=== PATIENT | male | born 1970 | race Two or more races ===

== ENCOUNTER 2020-11-18 05:43 | Emergency (ER) | payer BC, SELFPAY ==
[2020-11-18 06:20] VITALS: BP 137/79; PULSE 87; RESP 22; TEMP 36.6; O2SAT 98; BMI 49.2
--- NOTE | 2020-11-18 06:52 | ED.ALLEREA ---
HPI - Allergic Reaction General Chief complaint: Allergic Reaction Stated complaint: Sob/?Sinus infection Time Seen by Provider: 11/18/20 06:39 Source: patient Mode of arrival: ambulatory Limitations: no limitations History of Present Illness HPI narrative: 50 yo male with hx of allergies - on qasim, he just got his daughter a guinea pig and ever since his allergies have been getting worse, last night was the worst and he noted he was wheezing MD complaint: allergic reaction Onset (ago): hour(s) (last night) Exposure: other (guinea pig) Symptoms: difficulty breathing Severity: moderate Previous Allergic Reaction History: anaphylaxis Related Data Previous Rx's Medication Instructions Recorded albuterol sulfate 2 puff INHALATION QID PRN #6.7 g 11/18/20 prednisone 40 mg PO DAILY 5 Days #10 tab 11/18/20 Allergies Allergy/AdvReac Type Severity Reaction Status Date / Time acetaminophen [Vicodin] Allergy Unknown shortness Verified 05/31/19 00:00 of breath hydrocodone [Vicodin] Allergy Unknown shortness Verified 05/31/19 00:00 of breath hydromorphone [From Dilaudid] Allergy Unknown UNKNOWN, Unverified 06/28/20 14:50 Tongue swelling From VICODIN Allergy Unknown ANAPHYLAXIS Uncoded 06/28/20 14:50 Hydrocodone-Acetaminophen Allergy Unknown itchiness Uncoded 11/26/16 00:00 SEASONAL ALLERGIES Allergy Unknown Wheezing Uncoded 11/18/20 06:20 Review of Systems Review of Systems: Constitutional : No Fever, No Chills ENT/Mouth : no oral swelling, No Hoarseness, No Swallowing Difficulty Eyes: No Eye Pain, No Swelling, No Redness Cardiovascular : No Chest Pain, pos SOB Respiratory : No Cough, No Sputum, pos Wheezing, No Smoke Exposure, No Dyspnea Gastrointestinal : No Nausea, No Vomiting, No Diarrhea, No abdominal Pain Genitourinary : No Dysuria, No Urinary Frequency, No Hematuria Musculoskeletal : No joint pain, No Myalgias, No Joint Swelling Skin : No Skin Lesions, no rash Neuro : No Weakness, No Numbness, No Headache Psych : No Anxiety/Panic, No Depression Heme/Lymph: No Bruising, No Lymphadenopathy Endocrine : No Polyuria, No Polydipsia All other systems reviewed and are negative PMFSH Past Medical History Attestation statement: The following information was validated with the patient. Medical History Obesity Social History Social History (Updated 11/18/20 @ 06:59 by Roya Nye DO) Alcohol intake: current Alcohol intake frequency: holidays/special occasions only Alcohol type: beer Smoking Status: Never smoker Use of substances other than those prescribed or required for medical reasons: No Advance Directives: No Advance Directives Information Provided: No Physical Exam Vital Signs: Vital Signs: Last Vital Signs Temp 98.1 F 11/18/20 08:28 Pulse 94 11/18/20 08:28 Resp 18 11/18/20 08:28 BP 109/65 11/18/20 08:28 Pulse Ox 97 11/18/20 08:28 Body Mass Index 49.2 Appearance: Alert. Oriented X3. No acute distress. Eyes: Pupils equal, round and reactive to light. ENT: Pharynx normal. Neck: Normal inspection. Neck supple. CVS: Normal heart rate and rhythm. Pulses normal. Respiratory: No respiratory distress. Breath sounds diffuse end exp wheezes Abdomen: Soft and nontender. Skin: Skin warm and dry. Normal skin color. Normal skin turgor. Extremities: No lower extremity edema. No calf ttp Neuro: Oriented X 3. No motor deficit. No sensory deficit. Course Course Course Narrative: repeat neb ordered, states still with some wheezing at this time patient improved, INH in hand, lungs clear no hypoxia MDM - Allergic Reaction MDM Narrative Medical decision making narrative: 50 yo male with hx of allergies, here with wheezing after guinea pig exposure over time, will need albuterol treatment (does not use an INH) IV steroids, IV benadryl, IV pepcid - dispo per results and improvement Discharge Plan Discharge Clinical Impression: Acute bronchospasm Allergic reaction Qualifiers: Encounter type: initial encounter Qualified Code(s): T78.40XA - Allergy, unspecified, initial encounter Patient Disposition: Home, Self-Care Instructions: Allergies (ED), Bronchospasm (ED) Additional Instructions: return to ED for any worsening symptoms or concerns unfortunately the guinea pig is likely causing severe allergies and unlikely to respond to qasim or anti histamines Prescriptions: New prednisone 20 mg tablet 40 mg PO DAILY 5 Days Qty: 10 RF: 0 albuterol sulfate 90 mcg/actuation HFA aerosol inhaler 2 puff inhalation QID PRN (Reason: shortness of breath or wheezing) Qty: 6.7 RF: 0 Referrals: Javier Benoit MD [Primary Care Provider] - 2 days (if not better) Stand Alone Forms: Work/School Release
[2020-11-18] MEDS: Albuterol Sulfate (0.083%) 2.5 MG/3 ML VIAL.NEB INHALE (07:11)
[2020-11-18] MEDS: methylPREDNISolone Sod Succ/PF 125 MG/2 ML VIAL IVPUSH (07:25)
[2020-11-18] MEDS: diphenhydrAMINE HCL 50 MG/ML VIAL 25 MG IVPUSH (07:25)
[2020-11-18] MEDS: Famotidine/PF 20 MG/2 ML VIAL IVPUSH (07:26)
[2020-11-18 07:32] VITALS: BP 116/66; PULSE 94; RESP 18; TEMP 37; O2SAT 97
[2020-11-18 08:28] VITALS: BP 109/65; PULSE 94; RESP 18; TEMP 36.7; O2SAT 97
[2020-11-18] MEDS: Albuterol Sulfate (0.083%) 2.5 MG/3 ML VIAL.NEB 5 MG INHALE (08:39)
[2020-11-18 09:53] VITALS: BP 124/74; PULSE 103; RESP 18; TEMP 36.7; O2SAT 95
== END 2020-11-18 10:13 | disposition home or self-care (01) ==
PROVIDERS: Emergency Provider Emergency Medicine; PCP Internal Medicine
DX: J98.01 Acute bronchospasm (principal); T78.40XA Allergy, unspecified, initial encounter; X58.XXXA Exposure to other specified factors, initial encounter
CPT/HCPCS: 96374; 96375; 99284; J1200; J2930

== ENCOUNTER 2020-12-16 03:07 | Observation (INO) | payer BC, SELFPAY ==
[2020-12-16] VITALS (11 sets, daily range): BP systolic 100–140; BP diastolic 57–77; PULSE 90–132; RESP 7–20; TEMP 36.5–36.9; O2SAT 95–100; BMI 67.1
--- NOTE | ~2020-12-16 | XR_ITS ---
EXAMINATION: XR CHEST CLINICAL INFORMATION: Cough COMPARISON: 08/15/2014 TECHNIQUE: Frontal view of the chest was obtained. FINDINGS: Lung volumes are symmetric. No focal consolidation is seen. No evidence of pneumothorax, pleural effusion, or pulmonary edema. The cardiomediastinal contour is unremarkable. No acute osseous findings are seen. XR/XR chest 1V IMPRESSION: No acute cardiopulmonary findings.
--- NOTE | 2020-12-16 03:24 | ED_ITS ---
HPI - Asthma General Chief Complaint: Dyspnea Stated Complaint: Sob Time Seen by Provider: 12/16/20 03:17 Source: patient and old records reviewed Mode of arrival: ambulatory Limitations: no limitations History of Present Illness HPI Narrative: 50 yo male with recent bouts of bronchitis and wheezing comes in with c/o cough and then dyspnea and wheezing that started last night has INH that didn't work complaint: asthma attack and wheezing Onset (ago): day(s) (1) Severity: moderate and similar to prior Context: recent URI Associated symptoms: dry cough Asthma History: adult onset Treatments Prior to Arrival: inhaled bronchodilator Related Data Home Medications Medication Instructions Recorded Confirmed fexofenadine 60 mg tablet 30 mg PO DAILY tab 12/04/20 12/04/20 Previous Rx's Medication Instructions Recorded prednisone 40 mg PO DAILY 5 Days #10 tab 11/18/20 albuterol sulfate 90 mcg/actuation 2 puff INHALATION QID PRN #6.7 g 12/04/20 aerosol inhaler ciprofloxacin HCl 500 mg tablet 500 mg PO BID 10 Days #20 tab 12/04/20 dextromethorphan-guaifenesin ER 60 1 tab PO Q12H 10 Days #20 tab 12/04/20 mg-1,200 mg tab,extend release,12hr Allergies Allergy/AdvReac Type Severity Reaction Status Date / Time acetaminophen [Vicodin] Allergy Unknown shortness Verified 12/16/20 03:59 of breath hydrocodone [Vicodin] Allergy Unknown shortness Verified 12/16/20 03:59 of breath hydromorphone [From Dilaudid] Allergy Unknown UNKNOWN, Verified 12/16/20 03:59 Tongue swelling From VICODIN Allergy Unknown ANAPHYLAXIS Uncoded 12/16/20 03:59 Hydrocodone-Acetaminophen Allergy Unknown itchiness Uncoded 12/16/20 03:59 SEASONAL ALLERGIES Allergy Unknown Wheezing Uncoded 12/16/20 03:59 Review of Systems Review of Systems: Constitutional : No Fever, No Chills ENT/Mouth : No sore throat, No Rhinorrhea, No Swallowing Difficulty Eyes: No Eye Pain, No Swelling, No Redness Cardiovascular : No Chest Pain, positive SOB, No Orthopnea, mp Edema Respiratory : pos Cough, No Sputum, No Wheezing, positive dyspnea Gastrointestinal : No Nausea, No Vomiting, No Diarrhea, No abdominal Pain, No Hematochezia, No Melena Genitourinary : No Dysuria, No Urinary Frequency, No Hematuria Musculoskeletal : No joint pain, No Myalgias Skin : No Skin Lesions, No rash Neuro : No Weakness, No Numbness, No Dizziness, No Headache Psych : No Anxiety/Panic, No Depression Heme/Lymph: No Bruising, No Lymphadenopathy Endocrine : No Polyuria, No Polydipsia All other systems reviewed and are negative [facility] Past Medical History Attestation statement: The following information was validated with the patient. Medical History Bronchitis Obesity Family History Family History (Updated 12/04/20 @ 16:24 by Patty Elliott) Mother No problems noted. Father Heart attack Social History Social History Alcohol intake: never Smoking Status: Never smoker Use of substances other than those prescribed or required for medical reasons: No Advance Directives: No Physical Exam Vital Signs: Vital Signs: Last Vital Signs Temp 98.5 F 12/16/20 03:21 Pulse 126 H 12/16/20 06:42 Resp 7 L 12/16/20 06:00 BP 119/57 L 12/16/20 06:00 Pulse Ox 98 12/16/20 06:00 Body Mass Index 67.1 Appearance: Alert. Oriented X3. Mild acute distress. Eyes: Pupils equal, round and reactive to light. ENT: Pharynx normal. Neck: Normal inspection. Neck supple. CVS: Normal heart rate and rhythm. Pulses normal. Respiratory: Mild respiratory distress retractions and tachypnea Breath sounds diffuse end exp wheezes Abdomen: Soft and nontender. Skin: Skin warm and dry. Normal skin color. Normal skin turgor. Extremities: No lower extremity edema. No calf ttp Neuro: Oriented X 3. No motor deficit. No sensory deficit. Course Course Course Narrative: still wheezing, repeat neb ordered patient still tight and wheezing, will admit for further workup MDM - Asthma MDM Narrative Medical decision making narrative: 50 yo male with hx of bronchitis here with a day of worsening dyspnea and wheezes no response to INH at this time will need labs, IV steroids, IV magnesium, CXR/COVID swab, hour long 10mg neb, dispo per results and findings. Lab Data Result diagrams: 12/16/20 03:46 03/07/21 03:46 Labs: Lab Results 12/16/20 12/16/20 12/16/20 Range/Units 03:46 03:46 03:46 WBC 9.8 (4.8-10.8) X10*3/uL RBC 4.67 (4.60-5.80) X10*6/uL Hgb 13.1 L (14.0-18.0) g/dl Hct 41.8 L (42-52) % MCV 89.5 (80-98) fL MCH 28.1 (27.0-33.0) pg MCHC 31.3 (31.0-36.0) g/dl RDW 13.1 (11.0-16.0) % Plt Count 297 (160-400) X10*3/uL MPV 9.6 (9.4-12.4) fL Immature Gran % (Auto) 0.7 H (0.0-0.4) % Neut % (Auto) 66.4 (45-73) % Lymph % (Auto) 14.5 L (20-40) % [place] % (Auto) 6.6 (2-11) % Eos % (Auto) 11.4 H (0-4) % Baso % (Auto) 0.4 (0-2) % Lymph # (Auto) 1.4 (1.2-4.9) X10*3/uL [place] # (Auto) 0.6 (0.1-1.2) X10*3/uL Eos # (Auto) 1.1 H (0.0-0.4) X10*3/uL Baso # (Auto) 0.0 (0.0-0.2) X10*3/uL Abs Immat Gran (auto) 0.07 H (0.00-0.03) X10*3/uL Absolute Neuts (auto) 6.5 (2.0-8.3) X10*3/uL Absolute Nucleated RBC 0.000 (0.0-0.012) X10*3/uL Nucleated RBC % (auto) 0.0 (0.0-0.2) /100WBC Hold Blue Top SEE NOTE Sodium 141 (135-145) mmol/L Potassium 4.2 (3.3-5.1) mmol/L Chloride 107 (96-108) mmol/L Carbon Dioxide 25 (22-29) mmol/L Anion Gap 10 L (12-20) BUN 18 H (9-16) mg/dL Creatinine 0.75 (0.5-1.4) mg/dL Estim Creat Clear Calc 165.6 Estimated GFR > 60 Random Glucose 120 H (60-115) mg/dL Calcium 8.5 (8.4-10.2) mg/dL B-Natriuretic Peptide (<100) pg/mL COVID-19 (BRITTNY) (Negative) COVID-19 Clin Com 12/16/20 12/16/20 Range/Units 03:46 03:46 WBC (4.8-10.8) X10*3/uL RBC (4.60-5.80) X10*6/uL Hgb (14.0-18.0) g/dl Hct (42-52) % MCV (80-98) fL MCH (27.0-33.0) pg MCHC (31.0-36.0) g/dl RDW (11.0-16.0) % Plt Count (160-400) X10*3/uL MPV (9.4-12.4) fL Immature Gran % (Auto) (0.0-0.4) % Neut % (Auto) (45-73) % Lymph % (Auto) (20-40) % [place] % (Auto) (2-11) % Eos % (Auto) (0-4) % Baso % (Auto) (0-2) % Lymph # (Auto) (1.2-4.9) X10*3/uL [place] # (Auto) (0.1-1.2) X10*3/uL Eos # (Auto) (0.0-0.4) X10*3/uL Baso # (Auto) (0.0-0.2) X10*3/uL Abs Immat Gran (auto) (0.00-0.03) X10*3/uL Absolute Neuts (auto) (2.0-8.3) X10*3/uL Absolute Nucleated RBC (0.0-0.012) X10*3/uL Nucleated RBC % (auto) (0.0-0.2) /100WBC Hold Blue Top Sodium (135-145) mmol/L Potassium (3.3-5.1) mmol/L Chloride (96-108) mmol/L Carbon Dioxide (22-29) mmol/L Anion Gap (12-20) BUN (9-16) mg/dL Creatinine (0.5-1.4) mg/dL Estim Creat Clear Calc Estimated GFR Random Glucose (60-115) mg/dL Calcium (8.4-10.2) mg/dL B-Natriuretic Peptide 13 (<100) pg/mL COVID-19 (BRITTNY) Negative (Negative) COVID-19 Clin Com See Note Critical Care Time Critical Care Time Critical Care Time: Yes Total Critical Care Time: 35 Attestation: reassessments, repeat nebs, hour long 10mg neb I attest to this time spent taking care of the patient Discharge Plan Discharge Clinical Impression: Bronchitis, Asthma with exacerbation Patient Disposition: Admitted As Inpatient Prescriptions: No Action prednisone 20 mg tablet 40 mg PO DAILY 5 Days Qty: 10 RF: 0 fexofenadine 60 mg tablet 30 mg PO DAILY RF: 0 ciprofloxacin HCl 500 mg tablet 500 mg PO BID 10 Days Qty: 20 RF: 0 dextromethorphan-guaifenesin [Mucinex DM] 60-1,200 mg tablet extended release 12 hr 1 tab PO Q12H 10 Days Qty: 20 RF: 0 albuterol sulfate 90 mcg/actuation HFA aerosol inhaler 2 puff inhalation QID PRN (Reason: shortness of breath or wheezing) Qty: 6.7 RF: 0
[2020-12-16 03:57] LABS: MANUAL DIFF FLAG NO
[2020-12-16 03:58] LABS: Basophils Percent Auto 0.4 % (0-2); Eosinophils Absolute Auto 1.1 X10*3/uL (0.0-0.4); Eosinophils Percent Auto 11.4 % (0-4); Hematocrit 41.8 % (42-52); Hemoglobin 13.1 g/dl (14.0-18.0); Imm Gran Abs Auto 0.07 X10*3/uL (0.00-0.03); Imm Gran Pct Auto 0.7 % (0.0-0.4); Lymphocytes Absolute Auto 1.4 X10*3/uL (1.2-4.9); Lymphocytes Percent Auto 14.5 % (20-40); Mean Corpuscular HGB Conc 31.3 g/dl (31.0-36.0); Mean Corpuscular Hemoglobin 28.1 pg (27.0-33.0); Mean Corpuscular Volume 89.5 fL (80-98); Mean Platelet Volume 9.6 fL (9.4-12.4); Monocytes Absolute Auto 0.6 X10*3/uL (0.1-1.2); Monocytes Percent Auto 6.6 % (2-11); Neutrophils Absolute Auto 6.5 X10*3/uL (2.0-8.3); Neutrophils Percent Auto 66.4 % (45-73); Platelet Count 297 X10*3/uL (160-400); Red Blood Count 4.67 X10*6/uL (4.60-5.80); Red Cell Distribution Width 13.1 % (11.0-16.0); White Blood Count 9.8 X10*3/uL (4.8-10.8)
[2020-12-16] MEDS: Magnesium Sulfate/H2O 2 GM/50 ML PIGGYBACK IV (03:59)
[2020-12-16] MEDS: methylPREDNISolone Sod Succ/PF 125 MG/2 ML VIAL IVPUSH (04:00)
[2020-12-16 04:10] LABS: COVID-19 Test Negative (Negative); IDNOW Serial# 9DD0AD1C
[2020-12-16 04:24] LABS: Blood Urea Nitrogen 18 mg/dL (9-16); Calcium 8.5 mg/dL (8.4-10.2); Carbon Dioxide 25 mmol/L (22-29); Creatinine Clr Calc Pharmacy 165.6; Estimated Glomerular Filt Rate > 60; Glucose Random 120 mg/dL (60-115)
[2020-12-16 04:26] LABS: B Type Natriuretic Peptide 13 pg/mL (<100)
[2020-12-16 04:44] LABS: Anion Gap 10 (12-20); Chloride 107 mmol/L (96-108); Potassium 4.2 mmol/L (3.3-5.1); Sodium 141 mmol/L (135-145)
[2020-12-16] MEDS: Albuterol Sulfate (0.083%) 2.5 MG/3 ML VIAL.NEB 10 MG INHALE (05:07)
[2020-12-16] MEDS: Albuterol Sulfate (0.083%) 2.5 MG/3 ML VIAL.NEB INHALE (06:41)
--- NOTE | 2020-12-16 07:42 | PC.NURSE ---
pt alert and oriented x3. expiratory wheezing present in both lungs bilaterally. pt denies feeling short of breath at this time and denies pain with respirations. heart sounds normal, heart rate is even but tachycardic (126/min). bowel sounds active x4. pt eye contact and verbal responses appropriate for setting. pt currently sitting comfortably in bed in semi fowlers talking on the phone. pt has no questions or concerns at this time.
--- NOTE | 2020-12-16 09:50 | PM.IMHP ---
History of Present Illness Date of Service: 12/16/20 Chief Complaint: sob 50M presnted with sob. Patient states the symptoms go back about 1 month, after his children got guinea pigs. he believes he is sensitive to the hay. Throughout the last month he had tried a course of steroids and inhalers. He does not have a previous diagnosis of asthma. He had no improvement, due to increased coffee is now feeling soreness chest. And shortness of breath has worsened therefore he has come to the ED. in the ED found to be very wheezy and tachycardic. He was given nebulizers and Solu-Medrol and magnesium and is still feeling short of breath. Patient denies any fevers, chills. Review of Systems Review of Systems: Constitutional: Denies fever, denies Chills Eyes: denies blurry vision ENT: denies sore throat CVS: denies chest pain Respiratory: dyspnea GI: no abdominal pain : denies dysuria MSK: denies neck pain Skin: denies rash Neuro: denies specific motor weakness Psych: denies suicidal ideation Endocrine: denies heat/cold intoleratnce Hematologic: denies easy bleeding Allergy: denies hives [facility] Medical History Bronchitis Nephrolithiasis Obesity Super obesity Family History Mother No problems noted. Father Heart attack Social History Alcohol intake: never Smoking Status: Never smoker Use of substances other than those prescribed or required for medical reasons: No Advance Directives: No Meds Allergies Allergy/AdvReac Type Severity Reaction Status Date / Time acetaminophen [Vicodin] Allergy Unknown shortness Verified 12/16/20 03:59 of breath hydrocodone [Vicodin] Allergy Unknown shortness Verified 12/16/20 03:59 of breath hydromorphone [From Dilaudid] Allergy Unknown UNKNOWN, Verified 12/16/20 03:59 Tongue swelling From VICODIN Allergy Unknown ANAPHYLAXIS Uncoded 12/16/20 03:59 Hydrocodone-Acetaminophen Allergy Unknown itchiness Uncoded 12/16/20 03:59 SEASONAL ALLERGIES Allergy Unknown Wheezing Uncoded 12/16/20 03:59 Physical Exam Vital Signs and Narrative: Vital Signs: Last Vital Signs Temp 97.7 F 12/16/20 07:35 Pulse 126 H 12/16/20 07:35 Resp 16 12/16/20 07:35 BP 113/69 12/16/20 07:35 Pulse Ox 95 12/16/20 07:35 Body Mass Index 67.1 General: no acute distress HEENT: atraumatic Neck: normal to visual inspection CVS: S1, S2, RRR Resp: bilateral wheezes Chest: non tender GI: soft, non tender, non distended : no CVA tenderness Skin: no rashes Extremities: no edema Neuro: Oriented X3, grossly intact Psych: cooperative, Results Labs CBC and Chem 7: 12/16/20 03:46 12/16/20 03:46 Labs: Laboratory Results - last 24 hr 12/16/20 12/16/20 12/16/20 03:46 03:46 03:46 MCV 89.5 MCH 28.1 MCHC 31.3 RDW 13.1 Plt Count 297 MPV 9.6 Immature Gran % (Auto) 0.7 H Neut % (Auto) 66.4 Lymph % (Auto) 14.5 L [place] % (Auto) 6.6 Eos % (Auto) 11.4 H Baso % (Auto) 0.4 Lymph # (Auto) 1.4 [place] # (Auto) 0.6 Eos # (Auto) 1.1 H Baso # (Auto) 0.0 Abs Immat Gran (auto) 0.07 H Absolute Neuts (auto) 6.5 Absolute Nucleated RBC 0.000 Nucleated RBC % (auto) 0.0 Hold Blue Top SEE NOTE Anion Gap 10 L Estim Creat Clear Calc 165.6 Estimated GFR > 60 Random Glucose 120 H Calcium 8.5 B-Natriuretic Peptide COVID-19 (BRITTNY) COVID-19 Clin Com 12/16/20 12/16/20 03:46 03:46 MCV MCH MCHC RDW Plt Count MPV Immature Gran % (Auto) Neut % (Auto) Lymph % (Auto) [place] % (Auto) Eos % (Auto) Baso % (Auto) Lymph # (Auto) [place] # (Auto) Eos # (Auto) Baso # (Auto) Abs Immat Gran (auto) Absolute Neuts (auto) Absolute Nucleated RBC Nucleated RBC % (auto) Hold Blue Top Anion Gap Estim Creat Clear Calc Estimated GFR Random Glucose Calcium B-Natriuretic Peptide 13 COVID-19 (BRITTNY) Negative COVID-19 Clin Com See Note Imaging Radiologist's Impressions: Impressions Chest X-Ray 12/16/20 03:24 IMPRESSION: No acute cardiopulmonary findings. Assessment and Plan (1) Asthma with exacerbation: Qualifiers: Asthma persistence: persistent Asthma severity: mild Qualified Code(s): J45.31 - Mild persistent asthma with (acute) exacerbation Status: Acute (2) Super obesity: Status: Acute 50-year-old male presented with shortness of breath Acute asthma exacerbation likely triggered by allergens related to pets at home. IV Solu-Medrol, bronchodilators Observation Super obesity Increases risk of adverse outcomes due to asthma Weight loss recommended
--- NOTE | 2020-12-16 11:00 | PC.NURSE ---
ambulates to the bathroom with mild to moderate grimes. Wheezes throughout
[2020-12-16] MEDS: Albuterol/Iprat 2.5/0.5MG 3 ML AMPUL.NEB INHALE ×2 (13:45→23:37)
[2020-12-16] MEDS: Enoxaparin Sodium 40 MG/0.4 ML SYRINGE SUBCUT (15:04)
[2020-12-16] MEDS: 0.9 % Sodium Chloride Flush 3 ML SYRINGE IVFLUSH ×2 (15:09→23:32)
[2020-12-16] MEDS: methylPREDNISolone Sod Succ/PF 125 MG/2 ML VIAL 60 MG IVPUSH (21:14)
--- NOTE | 2020-12-16 22:51 | PC.NURSE ---
PT ABLE TO AMBULATE WITH STEADY GAIT AND MAKE NEEDS KNOWN. ATE 100% DINNER EARLIER THIS SHIFT. WATCHING TV, AWAITING CALL BACK FROM UNIT TO GIVE RN TO RN REPORT. PLAN FOR ADMISSION.
[2020-12-17 04:00] VITALS: BP 126/71; PULSE 105; RESP 20; TEMP 36.3; O2SAT 95
[2020-12-17] MEDS: 0.9 % Sodium Chloride Flush 3 ML SYRINGE IVFLUSH (07:28)
[2020-12-17 07:47] VITALS: BP 140/93; PULSE 96; RESP 21; TEMP 36.2; O2SAT 96
[2020-12-17] MEDS: methylPREDNISolone Sod Succ/PF 125 MG/2 ML VIAL 60 MG IVPUSH (08:22)
--- NOTE | 2020-12-17 09:07 | PM.DS ---
DS: Providers Provider Date of Service: 12/17/20 Date of admission: 12/16/20 09:46 Primary care physician: Javier Benoit MD DS: Diagnosis Discharge Diagnosis (1) Asthma with exacerbation: Status: Acute (2) Super obesity: Status: Acute DS: Medications Discharge Medications Home Medications: Previous Rx's Medication Instructions Recorded albuterol sulfate 90 mcg/actuation 2 puff INHALATION QID PRN #6.7 g 12/04/20 aerosol inhaler prednisone 40 mg PO DAILY #15 tab 12/17/20 DS: Summary Hospital Course Hospital Course: patient was admitted for asthma exacerbation. he was given steroids and bronchodilators and symtpoms significantly improved. he will be discharged on prednisone taper and already has albuterol inhaler. he will consider allergy work up, and avoid suspected trigger (guinea pigs) Time Spent with Patient Time attestation: Total time spent providing and/or coordinating discharge services: Discharge coordination time: Greater than 30 minutes Physical Exam Vital Signs: Vital Signs: Last Vital Signs Temp 97.1 F 12/17/20 07:47 Pulse 96 12/17/20 07:47 Resp 21 H 12/17/20 07:47 BP 140/93 H 12/17/20 07:47 Pulse Ox 96 12/17/20 07:47 Body Mass Index 67.1 General: AO X 3, no acute distress Resp: minimal wheez CVS: S1,S2,RRR GI: soft, non tender, non distended Neuro: motor grossly intact Psych: appropriate affect Discharge Plan Discharge Patient Disposition: Home, Self-Care Referrals: Javier Benoit MD [Primary Care Provider] - Discharge Medications: New prednisone 20 mg tablet 40 mg PO DAILY Qty: 15 RF: 0 Continued albuterol sulfate 90 mcg/actuation HFA aerosol inhaler 2 puff inhalation QID PRN (Reason: shortness of breath or wheezing) Qty: 6.7 RF: 0 Discharge Orders: Discharge Order (Routine); Ordered 12/17/20 Ordered By: Morgan Crenshaw Diet: advance to usual diet Activity on Discharge: As tolerated Stand Alone Forms: Patient Portal Discharge page, Work/School Release Care Plan Goals: avoid asthma exacerbations Health Concerns: asthma Plan of Treatment: steroid taper, avoid triggers, consider allergy work up
--- NOTE | 2020-12-17 09:52 | MHC.CM.PN ---
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 patient reports he lives with his and children ,he started having some breathing problems about A MONTH AGO WHEN HIS CHILDREN GOT A GERBAL (HE THINKS HE MIGHT BE ALERGIC T THE HAY , HE PRESENTED WITH SHORTNESS OF BREATH AND IN THE ER RECIVED NEBULIZER, BROCHODILATORS AND STEROIDS, HE REPORTED THAT HE IA ACTIVE, EMPLOYED [employer] AND HAS NO VNA ,NO DME SERVICES IN THE HOME. 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
== END 2020-12-17 10:16 | disposition home or self-care (01) ==
LOC: HO.ED 07:21 → HO.EDOVER 10:30 → HO.S3 21:21
PROVIDERS: Emergency Medicine; Admitting Provider Internal Medicine; Emergency Provider Emergency Medicine; PCP Internal Medicine; Visit Provider Internal Medicine
DX: J45.31 Mild persistent asthma with (acute) exacerbation (principal); E66.9 Obesity, unspecified; R06.00 Dyspnea, unspecified; R05 Cough; Z20.822 Contact with and (suspected) exposure to COVID-19; Z88.6 Allergy status to analgesic agent; Z88.8 Allergy status to other drugs, medicaments and biological substances; Z79.52 Long term (current) use of systemic steroids; Z79.899 Other long term (current) drug therapy
CPT/HCPCS: 36415; 71045; 80048; 83880; 85025; 87635; 94640; 94644; 96365; 96374; 96375; 99218; 99285; 99291; J1650; J2930; J3475

== ENCOUNTER 2021-01-31 14:31 | Emergency (ER) | payer BC, SELFPAY ==
--- NOTE | ~2021-01-31 | XR_ITS ---
EXAMINATION: XR RIBS, LEFT WITH CHEST CLINICAL INFORMATION: Shortness of breath status post coughing episode. COMPARISON: Chest radiographs 12/16/2020, 08/15/2014 TECHNIQUE: Frontal view chest and 4 views left ribs are obtained for a total of 5 views. FINDINGS: There is no visible rib fracture or rib destructive process. The lungs are clear. There is no pneumothorax, pneumomediastinum, airspace consolidation, or pleural reaction. The costophrenic sulci are clear. The heart is normal in size. The vascularity is normal. The hilar and mediastinal contours and bony structures are unremarkable. No free air beneath the diaphragms. XR/XR ribs LT min 3V w CXR1V IMPRESSION: Unremarkable examination.
[2021-01-31 14:42] VITALS: BP 121/85; PULSE 100; RESP 24; TEMP 36.5; O2SAT 95; BMI 76.1
--- NOTE | 2021-01-31 14:42 | ED.SOB ---
HPI - SOB/Dyspnea General Chief Complaint: Dyspnea Stated Complaint: SOB Time Seen by Provider: 01/31/21 14:42 Source: patient and EMS Limitations: no limitations History of Present Illness HPI Narrative: 50yo male with past medical history of asthma here with complaints of left upper back pain. Patient tells me he has had a dry cough and wheezing x 3 days. Using inhaler with continued symptoms. Took leftover prednisone and called PCP for refill but pending call back. No fevers, chills. Today after coughing fit developed left upper back pain which is worsened with breathing, moving and palpation. Related Data Previous Rx's Medication Instructions Recorded prednisone 40 mg PO DAILY #15 tab 12/17/20 cyclobenzaprine 10 mg tablet 10 mg PO TID PRN #15 tab 01/08/21 lidocaine 5 % topical patch 1 patch TOPICAL DAILY #15 ea 01/08/21 naproxen 500 mg tablet 500 mg PO BID PRN #60 tab 01/08/21 albuterol sulfate 90 mcg/actuation 2 puff INHALATION QID PRN #6.7 g 01/19/21 aerosol inhaler cyclobenzaprine 10 mg PO TID PRN #10 tab 01/31/21 lidocaine [Lidoderm] 1 patch TOPICAL DAILY #15 ea 01/31/21 naproxen 500 mg PO BID PRN #20 tab 01/31/21 prednisone 40 mg PO DAILY #10 tab 01/31/21 Allergies Allergy/AdvReac Type Severity Reaction Status Date / Time acetaminophen [Vicodin] Allergy Unknown shortness Verified 12/16/20 03:59 of breath hydrocodone [Vicodin] Allergy Unknown shortness Verified 12/16/20 03:59 of breath hydromorphone [From Dilaudid] Allergy Unknown UNKNOWN, Verified 12/16/20 03:59 Tongue swelling From VICODIN Allergy Unknown ANAPHYLAXIS Uncoded 12/16/20 03:59 Hydrocodone-Acetaminophen Allergy Unknown itchiness Uncoded 12/16/20 03:59 SEASONAL ALLERGIES Allergy Unknown Wheezing Uncoded 12/16/20 03:59 Review of Systems Review of Systems: Yes all other systems are reviewed and are negative Constitutional: Constitutional: Reports no additional constitutional complaints, Denies body ache(s), Denies chills, Denies fever(s), Denies headache(s) and Denies weakness Eyes: Eyes: Reports no additional eye complaints and Denies change in vision ENT: Reports system reviewed and no additional complaints, except as documented, Denies dizziness, Denies headache(s), Denies nasal congestion, Denies nasal discharge and Denies neck pain Cardiovascular: Cardiovascular: Reports no additional cardiovascular complaints, Denies chest pain, Denies leg edema and Denies dyspnea Respiratory: Respiratory: Reports no additional respiratory complaints, Reports cough and Denies dyspnea Gastrointestinal: Gastrointestinal: Reports no additional gastrointestinal complaints, Denies abdominal pain, Denies diarrhea, Denies nausea and Denies vomiting Genitourinary: Genitourinary: Denies urinary incontinence Musculoskeletal: Musculoskeletal: Reports no additional musculoskeletal complaints, Reports back pain, Denies arthralgias, Denies joint swelling, Denies neck pain, Denies numbness and Denies tingling Integumentary/Breasts: Skin/Breast: Reports system reviewed and no additional complaints, except as docu and Denies rash Neurologic: Reports system reviewed and no additional complaints, except as documented, Denies Abnormal speech present, Denies dizziness, Denies headache(s), Denies numbness, Denies tingling and Denies weakness PMFSH Past Medical History Attestation statement: The following information was validated with the patient. Source: old records reviewed and nursing notes reviewed Medical History Bronchitis Nephrolithiasis Obesity Super obesity Family History Family History Mother No problems noted. Father Heart attack Social History Social History Alcohol intake: never Smoking Status: Never smoker Advance Directives: No Advance Directives Information Provided: No service: No Current occupational status: employed and disabled Physical Exam Vital Signs: Vital Signs: Last Vital Signs Temp 97.6 F 01/31/21 16:33 Pulse 94 01/31/21 16:33 Resp 20 01/31/21 16:33 BP 130/70 01/31/21 16:33 Pulse Ox 96 01/31/21 16:33 Body Mass Index 76.1 Const: General: cooperative, healthy appearing, comfortable and no acute distress Orientation/consciousness: patient oriented x3 Limitations: no limitations HENMT: Head: Yes normal to inspection Ears: hearing grossly normal bilaterally General nose exam: Normal external nose present Face and sinus: Yes normal facial exam Mouth: Normal oral and palatal mucosa present Throat: Yes posterior oropharynx normal Eyes: General: appearance normal, both eyes and all related structures Pupils: Equal, round and reactive pupils present Neck: Neck: Yes normal visual inspection Chest: Chest palpation & inspection: normal inspection of the chest Resp: Effort & Inspection: normal respiratory effort Auscultation: clear to auscultation bilaterally Cardio: Rate: regular rate Rhythm: regular rhythm Peripheral pulses: Peripheral pulses 2+ throughout GI: Inspection: Yes normal to inspection Palpation (GI): Soft to palpation and nontender Auscultation: normal bowel sounds Back/Spine/Pelvis: Other: Left posterior rib pain, worsened with palpation. No ecchymosis or crepitus Thoracic/Lumbar Spine: thoracic and lumbar spine normal to inspection Skin: General skin exam: no rashes or lesions noted Neuro: General: patient oriented x3, no focal motor deficits and normal sensation to monofilament Cranial nerves: Yes Equal, round and reactive pupils present Cognition (Neuro): normal cognition Speech: No Abnormal speech present Gait exam (Neuro): Normal gait present Motor exam (neuro): 5/5 motor strength present throughout Extrem: General: Yes normal to inspection, Yes no pedal edema and Yes no calf tenderness Course Course Course Narrative: 1440-This is a rapid medical exam. 50yo male here with SOB, left sided chest wall pain s/p coughing episode which occurred just [employer]. Has had cough x several days. No fevers/chills. Received 1 of 2 moderna vaccines. LS CTA. Oxygen saturation >95%. Will need chest/ left rib xray. Deferred HPI, ROS and PE to primary provider. 1640-Reviewed X-ray which is unremarkable. Likely chest wall strain. Also c/o asthma sympoms x several days. Requesting prednisone course. Has adequate refills on albuterol. Reviewed worrisome signs/symptoms with patient and when to return to ED. Comfortable with discharge home. MDM - SOB/Dyspnea Medical Records Attestation: I reviewed the patient's medical records. Lab Data Attestation: I reviewed the patient's lab results. Imaging Data ribs/chest xray: Attestation: I personally reviewed and interpreted this imaging study as follows: Radiologist's impression: EXAMINATION: XR RIBS, LEFT WITH CHEST CLINICAL INFORMATION: Shortness of breath status post coughing episode. COMPARISON: Chest radiographs 12/16/2020, 08/15/2014 TECHNIQUE: Frontal view chest and 4 views left ribs are obtained for a total of 5 views. FINDINGS: There is no visible rib fracture or rib destructive process. The lungs are clear. There is no pneumothorax, pneumomediastinum, airspace consolidation, or pleural reaction. The costophrenic sulci are clear. The heart is normal in size. The vascularity is normal. The hilar and mediastinal contours and bony structures are unremarkable. No free air beneath the diaphragms. XR/XR ribs LT min 3V w CXR1V IMPRESSION: Unremarkable examination. Discharge Plan Discharge Clinical Impression: Acute myofascial pain Asthma Qualifiers: Asthma severity: moderate Asthma persistence: persistent Asthma complication type: with acute exacerbation Qualified Code(s): J45.41 - Moderate persistent asthma with (acute) exacerbation Patient Disposition: Home, Self-Care Instructions: Asthma (ED), Muscle Strain (ED) Additional Instructions: Heat to the affected area Gentle stretching Prescriptions: New prednisone 20 mg tablet 40 mg PO DAILY Qty: 10 RF: 0 cyclobenzaprine 10 mg tablet 10 mg PO TID PRN (Reason: muscle spasm) Qty: 10 RF: 0 naproxen 500 mg tablet 500 mg PO BID PRN (Reason: pain) Qty: 20 RF: 0 lidocaine [Lidoderm] 5 % adhesive patch,medicated 1 patch topical DAILY Qty: 15 RF: 0 No Action albuterol sulfate 90 mcg/actuation HFA aerosol inhaler 2 puff inhalation QID PRN (Reason: shortness of breath or wheezing) Qty: 6.7 RF: 0 prednisone 20 mg tablet 40 mg PO DAILY Qty: 15 RF: 0 cyclobenzaprine 10 mg tablet 10 mg PO TID PRN (Reason: muscle spasm) Qty: 15 RF: 0 lidocaine 5 % adhesive patch,medicated 1 patch topical DAILY Qty: 15 RF: 0 naproxen 500 mg tablet 500 mg PO BID PRN (Reason: pain) Qty: 60 RF: 0 Referrals: Javier Benoit MD [Primary Care Provider] - 2 days Stand Alone Forms: Work/School Release Interventions: ED Discharge Assessment Last Done: 01/31/21 16:39 Discharge Date/Time: 01/31/21 16:42
[2021-01-31 16:33] VITALS: BP 130/70; PULSE 94; RESP 20; TEMP 36.4; O2SAT 96
== END 2021-01-31 16:42 | disposition home or self-care (01) ==
PROVIDERS: Emergency Provider Emergency Medicine; PCP Internal Medicine
DX: J45.41 Moderate persistent asthma with (acute) exacerbation (principal); Z79.899 Other long term (current) drug therapy
CPT/HCPCS: 71101; 99283; 99284

== ENCOUNTER 2021-05-09 11:18 | Outpatient (REF) | payer OTHER, SELFPAY ==
--- NOTE | ~2021-05-09 | XR_ITS ---
EXAMINATION: XR KNEE, LEFT CLINICAL INFORMATION: Chronic pain left knee. COMPARISON: None TECHNIQUE: Two views of the left knee. FINDINGS: There is mild joint narrowing of the medial femoral tibial joint. Lateral femoral tibial joint and the patellofemoral joints are maintained. No significant bone spurs. No bone erosion. No soft tissue calcification. No joint effusion. No focal bone lesion or abnormal periosteal reaction. XR/XR knee LT 2V IMPRESSION: Mild joint narrowing medial femoral tibial joint. The knee is otherwise normal.
== END 2021-05-09 11:19 | disposition home or self-care (01) ==
LOC: HO.XRAY 11:18
PROVIDERS: PCP Internal Medicine; Visit Provider Internal Medicine
DX: M25.562 Pain in left knee (principal)
CPT/HCPCS: 73560

== ENCOUNTER 2021-05-31 07:22 | Outpatient (REF) | payer OTHER, SELFPAY | END 2021-05-31 07:23 | disposition home or self-care (01) | LOC: HO.HOSX 07:22 | PROVIDERS: Visit Provider Physician Assistant | DX: Z13.89 Encounter for screening for other disorder (principal) ==

== ENCOUNTER 2021-06-10 10:21 | Emergency (ER) | payer OTHER, SELFPAY ==
--- NOTE | ~2021-06-10 | XR_ITS ---
EXAMINATION: XR CHEST CLINICAL INFORMATION: Shortness of breath COMPARISON: Previous chest x-rays most recent January [address] scans of the abdomen and pelvis most recent October 2017. TECHNIQUE: Frontal view of the chest was obtained. FINDINGS: The cardiac and mediastinal contours are normal. There is a 0.9 x 1.6 cm nodule in the right lower lung. This overlies the right anterior fifth rib and right posterior eighth rib. This likely corresponds to pulmonary nodule seen on prior abdominal pelvic CT scans going back to 2013. The lungs are otherwise clear. There is no pleural effusion or pneumothorax. There are degenerative changes of the spine. XR/XR chest 1V IMPRESSION: 0.9 x 1.6 cm right pulmonary nodule. This is similar to lung windows from previous CT scans of the abdomen and pelvis going back to 2013 and therefore probably benign.
[2021-06-10 10:29] VITALS: BP 164/95; PULSE 110; RESP 25; TEMP 36.6; O2SAT 92; BMI 61.9
--- NOTE | 2021-06-10 11:05 | ED.EXTPRO ---
HPI - Extremity Problem General Chief complaint: Extremity Injury, Upper Stated complaint: ASTHMA Time Seen by Provider: 06/10/21 10:48 Source: patient Mode of arrival: ambulatory Limitations: no limitations History of Present Illness HPI Narrative: 50-year-old male with a past medical history of asthma, morbid obesity here with complaints of wheezing, cough and shortness of breath for several hours. History of asthma and feels similar. No fevers, chills, chest pain. Patient does report chronic lower extremity swelling which she has had for quite some time and does not appear worsened. Used home albuterol with continued symptoms Related Data Previous Rx's Medication Instructions Recorded cyclobenzaprine 10 mg tablet 10 mg PO TID PRN #15 tab 01/08/21 albuterol sulfate 90 mcg/actuation 1 inh INHALATION Q4-6H PRN #8.5 g 05/02/21 aerosol inhaler (Ventolin HFA) albuterol sulfate 2.5 mg INHALATION Q4H PRN #90 ml 05/03/21 albuterol sulfate 90 mcg/actuation 2 puff INHALATION QID PRN #8.5 g 05/03/21 aerosol inhaler amoxicillin 875 mg-potassium 1 tab PO BID #20 tab 05/03/21 clavulanate 125 mg tablet (Augmentin) prednisone 10 mg tablet 10 mg PO .COMPLEX #45 tab 05/03/21 albuterol sulfate 90 mcg/actuation 2 inh INHALATION Q4H PRN #1 ea 06/10/21 breath activated powder inhaler prednisone 20 mg tablet 40 mg PO DAILY #8 tab 06/10/21 Allergies Allergy/AdvReac Type Severity Reaction Status Date / Time acetaminophen [Vicodin] Allergy Unknown shortness Verified 05/09/21 10:08 of breath hydrocodone [Vicodin] Allergy Unknown shortness Verified 05/09/21 10:08 of breath hydromorphone [From Dilaudid] Allergy Unknown UNKNOWN, Verified 05/09/21 10:08 Tongue swelling From VICODIN Allergy Unknown ANAPHYLAXIS Uncoded 05/02/21 11:05 Hydrocodone-Acetaminophen Allergy Unknown itchiness Uncoded 05/02/21 11:05 SEASONAL ALLERGIES Allergy Unknown Wheezing Uncoded 05/02/21 11:05 Review of Systems Review of Systems: Yes all other systems are reviewed and are negative Constitutional: Constitutional: Reports no additional constitutional complaints, Denies body ache(s), Denies chills, Denies fever(s), Denies headache(s) and Denies weakness Eyes: Eyes: Reports no additional eye complaints and Denies change in vision ENT: Reports system reviewed and no additional complaints, except as documented, Denies dizziness, Denies headache(s), Denies nasal congestion, Denies nasal discharge and Denies neck pain Cardiovascular: Cardiovascular: Reports no additional cardiovascular complaints, Denies chest pain, Reports leg edema and Reports dyspnea Respiratory: Respiratory: Reports no additional respiratory complaints, Reports cough and Reports dyspnea Gastrointestinal: Gastrointestinal: Reports no additional gastrointestinal complaints, Denies abdominal pain, Denies diarrhea, Denies nausea and Denies vomiting Genitourinary: Genitourinary: Denies urinary incontinence Musculoskeletal: Musculoskeletal: Reports no additional musculoskeletal complaints, Denies back pain, Denies arthralgias, Denies joint swelling, Denies neck pain, Denies numbness and Denies tingling Integumentary/Breasts: Skin/Breast: Reports system reviewed and no additional complaints, except as docu and Denies rash Neurologic: Reports system reviewed and no additional complaints, except as documented, Denies Abnormal speech present, Denies dizziness, Denies headache(s), Denies numbness, Denies tingling and Denies weakness PMFSH Past Medical History Attestation statement: The following information was validated with the patient. Source: old records reviewed and nursing notes reviewed Medical History Bronchitis Morbid obesity Nephrolithiasis Obesity Super obesity Family History Family History Mother No problems noted. Father Heart attack Social History Social History Housing: Apartment Alcohol intake: never Patient Tobacco Use Status: Never used Tobacco e-Cigarette/Vaping Use: Never Used Second Hand Smoke Exposure: No Advance Directives: Yes Advance Directives Information Provided: Yes Advance Directives on File: No service: No Current occupational status: employed and disabled Physical Exam Vital Signs: Vital Signs: Last Vital Signs Temp 98 F 06/10/21 10:29 Pulse 101 H 06/10/21 13:17 Resp 19 06/10/21 13:17 BP 140/77 H 06/10/21 12:00 Pulse Ox 96 06/10/21 13:17 Body Mass Index 61.9 Const: General: cooperative, healthy appearing, comfortable and no acute distress Orientation/consciousness: patient oriented x3 Limitations: no limitations HENMT: Head: Yes normal to inspection Ears: hearing grossly normal bilaterally General nose exam: Normal external nose present Face and sinus: Yes normal facial exam Mouth: Normal oral and palatal mucosa present Throat: Yes posterior oropharynx normal Eyes: General: appearance normal, both eyes and all related structures Pupils: Equal, round and reactive pupils present Neck: Neck: Yes normal visual inspection Chest: Chest palpation & inspection: normal inspection of the chest Resp: Other: Expiratory wheezing throughout. Effort & Inspection: normal respiratory effort Cardio: Rate: regular rate Rhythm: regular rhythm Peripheral pulses: Peripheral pulses 2+ throughout GI: Inspection: Yes normal to inspection Palpation (GI): Soft to palpation and nontender Auscultation: normal bowel sounds Back/Spine/Pelvis: Thoracic/Lumbar Spine: thoracic and lumbar spine normal to inspection Skin: General skin exam: no rashes or lesions noted Neuro: General: patient oriented x3, no focal motor deficits and normal sensation to monofilament Cranial nerves: Yes Equal, round and reactive pupils present Cognition (Neuro): normal cognition Speech: No Abnormal speech present Gait exam (Neuro): Normal gait present Motor exam (neuro): 5/5 motor strength present throughout Extrem: Other: Lower extremity swelling mild. Nonpitting. No pain or redness or warmth General: Yes normal to inspection Course Course Course Narrative: 50-year-old male with a past medical history of asthma, morbid obesity here with complaints of cough, shortness of breath for several hours. Feels similar to previous asthma attacks in the past. Unrelieved with home albuterol. Also complaining of some lower extremity swelling which has been chronic. Expiratory wheezing throughout. Stable vital signs. Will check labs, chest x-ray, COVID screen. Will give DuoNeb and p.o. prednisone and reassess -x-ray shows no acute finding with exception of a small pulmonary nodule that was seen on previous films. Labs are unremarkable. Patient is feeling much improved with no additional wheezing and oxygen saturation greater than 95%. Likely asthma flare. Will send home with course of prednisone. Reviewed worrisome signs and symptoms of when to return to the emergency department. Comfortable discharge home. MDM - Extremity (Nontraumatic) Medical Records Attestation: I reviewed the patient's medical records. Lab Data Attestation: I reviewed the patient's lab results. Result diagrams: 06/10/21 11:26 06/10/21 11:26 Labs: Lab Results 06/10/21 06/10/21 06/10/21 Range/Units 10:47 11:26 11:26 WBC 9.9 (4.8-10.8) X10*3/uL RBC 4.90 (4.60-5.80) X10*6/uL Hgb 13.6 L (14.0-18.0) g/dl Hct 43.8 (42-52) % MCV 89.4 (80-98) fL MCH 27.8 (27.0-33.0) pg MCHC 31.1 (31.0-36.0) g/dl RDW 12.8 (11.0-16.0) % Plt Count 292 (160-400) X10*3/uL MPV 9.8 (9.4-12.4) fL Immature Gran % (Auto) 0.9 H (0.0-0.4) % Neut % (Auto) 75.2 H (45-73) % Lymph % (Auto) 12.6 L (20-40) % [place] % (Auto) 6.0 (2-11) % Eos % (Auto) 4.8 H (0-4) % Baso % (Auto) 0.5 (0-2) % Lymph # (Auto) 1.2 (1.2-4.9) X10*3/uL [place] # (Auto) 0.6 (0.1-1.2) X10*3/uL Eos # (Auto) 0.5 H (0.0-0.4) X10*3/uL Baso # (Auto) 0.1 (0.0-0.2) X10*3/uL Abs Immat Gran (auto) 0.09 H (0.00-0.03) X10*3/uL Absolute Neuts (auto) 7.4 (2.0-8.3) X10*3/uL Absolute Nucleated RBC 0.000 (0.0-0.012) X10*3/uL Nucleated RBC % (auto) 0.0 (0.0-0.2) /100WBC Sodium 140 (135-145) mmol/L Potassium 4.1 (3.3-5.1) mmol/L Chloride 105 (96-108) mmol/L Carbon Dioxide 26 (22-29) mmol/L Anion Gap 13 (12-20) BUN 13 (9-16) mg/dL Creatinine 0.81 (0.5-1.4) mg/dL Estim Creat Clear Calc 150.6 Estimated GFR > 60 Random Glucose 125 H (60-115) mg/dL Calcium 8.9 (8.4-10.2) mg/dL Total Bilirubin 0.6 (0.0-1.0) mg/dL Direct Bilirubin 0.2 (0.0-0.5) mg/dL AST 22 (5-37) U/L ALT 34 (0-40) U/L Alkaline Phosphatase 68 (39-117) U/L B-Natriuretic Peptide (<100) pg/mL Total Protein 7.5 (6.5-8.0) g/dL Albumin 3.5 (3.5-5.0) g/dL COVID-19 (BRITTNY) Negative (Negative) COVID-19 Clin Com See Note 06/10/21 Range/Units 11:26 WBC (4.8-10.8) X10*3/uL RBC (4.60-5.80) X10*6/uL Hgb (14.0-18.0) g/dl Hct (42-52) % MCV (80-98) fL MCH (27.0-33.0) pg MCHC (31.0-36.0) g/dl RDW (11.0-16.0) % Plt Count (160-400) X10*3/uL MPV (9.4-12.4) fL Immature Gran % (Auto) (0.0-0.4) % Neut % (Auto) (45-73) % Lymph % (Auto) (20-40) % [place] % (Auto) (2-11) % Eos % (Auto) (0-4) % Baso % (Auto) (0-2) % Lymph # (Auto) (1.2-4.9) X10*3/uL [place] # (Auto) (0.1-1.2) X10*3/uL Eos # (Auto) (0.0-0.4) X10*3/uL Baso # (Auto) (0.0-0.2) X10*3/uL Abs Immat Gran (auto) (0.00-0.03) X10*3/uL Absolute Neuts (auto) (2.0-8.3) X10*3/uL Absolute Nucleated RBC (0.0-0.012) X10*3/uL Nucleated RBC % (auto) (0.0-0.2) /100WBC Sodium (135-145) mmol/L Potassium (3.3-5.1) mmol/L Chloride (96-108) mmol/L Carbon Dioxide (22-29) mmol/L Anion Gap (12-20) BUN (9-16) mg/dL Creatinine (0.5-1.4) mg/dL Estim Creat Clear Calc Estimated GFR Random Glucose (60-115) mg/dL Calcium (8.4-10.2) mg/dL Total Bilirubin (0.0-1.0) mg/dL Direct Bilirubin (0.0-0.5) mg/dL AST (5-37) U/L ALT (0-40) U/L Alkaline Phosphatase (39-117) U/L B-Natriuretic Peptide < 10 (<100) pg/mL Total Protein (6.5-8.0) g/dL Albumin (3.5-5.0) g/dL COVID-19 (BRITTNY) (Negative) COVID-19 Clin Com Imaging Data Chest x-ray: Attestation: I personally reviewed and interpreted this imaging study as follows: Radiologist's impression: [address] [address] XRay Report Signed Patient: Chuck Narvaez MR#: [id number] : 1970 Acct:[id number] Age/Sex: 50 / M ADM Date: 06/10/21 Loc: .ED Attending Dr: Ordering Physician: Chiquita Martins NP Date of Service: 06/10/21 Procedure(s): XR chest 1V Accession Number(s): [id number] cc: 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 TECHNIQUE: Frontal view of the chest was obtained. FINDINGS: The cardiac and mediastinal contours are normal. There is? a 0.9 x 1.6 cm nodule in the right lower lung. This overlies the right anterior fifth rib and right posterior eighth rib. This likely corresponds to pulmonary nodule seen on prior abdominal pelvic CT scans going back to 2013. The lungs are otherwise clear. There is no pleural effusion or pneumothorax. There are degenerative changes of the spine. XR/XR chest 1V IMPRESSION: 0.9 x 1.6 cm right pulmonary nodule. This is similar to lung windows from previous CT scans of the abdomen and pelvis going back to 2013 and therefore probably benign. ? Discharge Plan Discharge Clinical Impression: Asthma with exacerbation Patient Disposition: Home, Self-Care Instructions: Asthma (ED) Additional Instructions: start prednisone tomorrow Prescriptions: New prednisone 20 mg tablet 40 mg PO DAILY Qty: 8 RF: 0 albuterol sulfate 90 mcg/actuation aerosol powdr breath activated 2 inh inhalation Q4H PRN (Reason: shortness of breath or wheezing) Qty: 1 RF: 0 No Action albuterol sulfate 90 mcg/actuation HFA aerosol inhaler 2 puff inhalation QID PRN (Reason: for wheezing) Qty: 8.5 RF: 0 albuterol sulfate 2.5 mg /3 mL (0.083 %) solution for nebulization 2.5 mg inhalation Q4H PRN (Reason: bronchospasm) Qty: 90 RF: 0 amoxicillin-pot clavulanate [Augmentin] 875-125 mg tablet 1 tab PO BID Qty: 20 RF: 0 prednisone 10 mg tablet 10 mg PO .COMPLEX Qty: 45 RF: 0 cyclobenzaprine 10 mg tablet 10 mg PO TID PRN (Reason: muscle spasm) Qty: 15 RF: 0 albuterol sulfate [Ventolin HFA] 90 mcg/actuation HFA aerosol inhaler 1 inh inhalation Q4-6H PRN (Reason: shortness of breath or wheezing) Qty: 8.5 RF: 0 Interventions: ED Discharge Assessment Last Done: 08/30/21 13:16 Discharge Date/Time: 06/10/21 13:17
[2021-06-10] MEDS: predniSONE 20 MG TABLET 60 MG PO (11:06)
[2021-06-10 11:29] LABS: MANUAL DIFF FLAG NO
[2021-06-10 11:30] LABS: COVID-19 Test Negative (Negative)
[2021-06-10 11:31] LABS: Basophils Absolute Auto 0.1 X10*3/uL (0.0-0.2); Basophils Percent Auto 0.5 % (0-2); Eosinophils Absolute Auto 0.5 X10*3/uL (0.0-0.4); Eosinophils Percent Auto 4.8 % (0-4); Hematocrit 43.8 % (42-52); Hemoglobin 13.6 g/dl (14.0-18.0); Imm Gran Abs Auto 0.09 X10*3/uL (0.00-0.03); Imm Gran Pct Auto 0.9 % (0.0-0.4); Lymphocytes Absolute Auto 1.2 X10*3/uL (1.2-4.9); Lymphocytes Percent Auto 12.6 % (20-40); Mean Corpuscular HGB Conc 31.1 g/dl (31.0-36.0); Mean Corpuscular Hemoglobin 27.8 pg (27.0-33.0); Mean Corpuscular Volume 89.4 fL (80-98); Mean Platelet Volume 9.8 fL (9.4-12.4); Monocytes Absolute Auto 0.6 X10*3/uL (0.1-1.2); Neutrophils Absolute Auto 7.4 X10*3/uL (2.0-8.3); Neutrophils Percent Auto 75.2 % (45-73); Platelet Count 292 X10*3/uL (160-400); Red Cell Distribution Width 12.8 % (11.0-16.0); White Blood Count 9.9 X10*3/uL (4.8-10.8)
--- NOTE | 2021-06-10 11:42 | PC.NURSE ---
RESP HERE TO GIVE TREATMENT
[2021-06-10] MEDS: Albuterol/Iprat 2.5/0.5MG 3 ML AMPUL.NEB INHALE (11:43)
[2021-06-10 11:44] VITALS: PULSE 82; O2SAT 5
[2021-06-10 11:58] LABS: Alanine Aminotransferase 34 U/L (0-40); Albumin Level 3.5 g/dL (3.5-5.0); Alkaline Phosphatase 68 U/L (39-117); Anion Gap 13 (12-20); Aspartate Amino Transferase 22 U/L (5-37); Bilirubin Direct 0.2 mg/dL (0.0-0.5); Bilirubin Total 0.6 mg/dL (0.0-1.0); Blood Urea Nitrogen 13 mg/dL (9-16); Calcium 8.9 mg/dL (8.4-10.2); Carbon Dioxide 26 mmol/L (22-29); Chloride 105 mmol/L (96-108); Creatinine Clr Calc Pharmacy 150.6; Estimated Glomerular Filt Rate > 60; Glucose Random 125 mg/dL (60-115); Potassium 4.1 mmol/L (3.3-5.1); Sodium 140 mmol/L (135-145); Total Protein 7.5 g/dL (6.5-8.0)
[2021-06-10 12:00] VITALS: BP 140/77; PULSE 106; RESP 14; O2SAT 97
[2021-06-10 12:00] LABS: B Type Natriuretic Peptide < 10 pg/mL (<100)
[2021-06-10 13:17] VITALS: PULSE 101; RESP 19; O2SAT 96
== END 2021-06-10 13:17 | disposition home or self-care (01) ==
PROVIDERS: Nurse Practitioner Family; Emergency Provider Emergency Medicine; PCP Internal Medicine
DX: J45.901 Unspecified asthma with (acute) exacerbation (principal); R06.02 Shortness of breath; R05 Cough; Z79.899 Other long term (current) drug therapy; Z20.822 Contact with and (suspected) exposure to COVID-19
CPT/HCPCS: 36415; 71045; 80048; 80076; 83880; 85025; 87635; 94640; 99284

== ENCOUNTER 2021-08-21 12:20 | Outpatient (REF) | payer OTHER, SELFPAY ==
--- NOTE | ~2021-08-21 | XR_ITS ---
EXAMINATION: XR CHEST CLINICAL INFORMATION: Asthma COMPARISON: Previous chest x-ray most recent June 10 TECHNIQUE: 2 views of the chest were obtained. FINDINGS: The cardiac and mediastinal contours are stable. There are increased central lung markings questionable for bronchitis or airways disease. There is a 1 x 1.5 cm nodular density at the right lung base overlying the right anterior fifth and posterior eighth ribs that is stable. The lungs are otherwise clear. There is no pleural effusion or pneumothorax. There are mild degenerative changes of the spine. XR/XR chest 2V IMPRESSION: Increased central bronchial markings questionable for bronchitis or asthma. No evidence of pneumonia. Stable nodule in the right lung base.
== END 2021-08-21 12:21 | disposition home or self-care (01) ==
LOC: HO.LAB 12:20
PROVIDERS: PCP Internal Medicine; Visit Provider Internal Medicine
DX: Z20.822 Contact with and (suspected) exposure to COVID-19 (principal); R09.89 Other specified symptoms and signs involving the circulatory and respiratory systems; J45.901 Unspecified asthma with (acute) exacerbation
CPT/HCPCS: 71046; U0003; U0005

== ENCOUNTER 2022-08-08 17:13 | Emergency (ER) | payer OTHER, SELFPAY ==
[2022-08-08 17:21] VITALS: BP 119/60; PULSE 87; RESP 20; TEMP 36.7; O2SAT 97; BMI 69.0
--- NOTE | 2022-08-08 18:58 | ED.GENADULT ---
HPI - General Adult General Chief complaint: Eye Problems Stated complaint: eye irritation Time Seen by Provider: 08/08/22 18:58 Source: patient Mode of arrival: ambulatory Limitations: no limitations History of Present Illness HPI narrative: Patient is a 52 year old assigned male at with a history of asthma presenting to the emergency department today with discharged from his left eye. Patient states that over the last 3 days he has had a sinus infection for which he was started on amoxicillin but he has also been having drainage and burning of his left eye. Patient denies any dizziness, lightheadedness, abdominal pain, nausea, vomiting, fever, chills, blurry vision, double vision, loss of vision, chest pain, difficulty breathing, shortness of breath, back pain, night sweats, pain with urination, increased urinary frequency, increased urinary urgency, blood in his urine or stool, syncope or a near syncopal episode, recent trauma or falls, bowel incontinence, bladder incontinence, bowel retention, bladder retention, or any other complaints at this time. Onset (ago): day(s) (3) Location: eyes and left Radiation: non-radiation Severity: mild Severity scale (1-10): 3 Relieving factors: none Exacerbating factors: none Associated symptoms: denies other symptoms Treatments prior to arrival: other (amoxicillin) Related Data Previous Rx's Medication Instructions Recorded albuterol sulfate 2.5 mg/3 mL 2.5 mg (3 mL) inhalation Q4H PRN 09/02/21 (0.083 %) solution for nebulization bronchospasm #90 mL albuterol sulfate 90 mcg/actuation 2 puff inhalation Q4-6H PRN 03/24/22 aerosol inhaler bronchospasm 30 days #8.5 grams fluticasone propionate 110 2 puff inhalation BID #12 grams 03/24/22 mcg/actuation HFA aerosol inhaler (Flovent HFA) azithromycin 250 mg tablet See Rx Instructions PO .COMPLEX #6 06/13/22 tabs amoxicillin 500 mg capsule 500 mg PO Q8H 7 days #21 caps 08/05/22 erythromycin 5 mg/gram (0.5 %) eye 0.5 inch ophthalmic (eye) Q4H #3.5 08/08/22 ointment grams Allergies Allergy/AdvReac Type Severity Reaction Status Date / Time acetaminophen [Vicodin] Allergy Unknown shortness Verified 11/21/21 11:24 of breath hydrocodone [Vicodin] Allergy Unknown shortness Verified 11/21/21 11:24 of breath hydromorphone [From Dilaudid] Allergy Unknown UNKNOWN, Verified 11/21/21 11:24 Tongue swelling From VICODIN Allergy Unknown ANAPHYLAXIS Uncoded 05/02/21 11:05 Hydrocodone-Acetaminophen Allergy Unknown itchiness Uncoded 05/02/21 11:05 SEASONAL ALLERGIES Allergy Unknown Wheezing Uncoded 05/02/21 11:05 Review of Systems Constitutional: Constitutional: Reports no additional constitutional complaints, Denies chills, Denies fever(s) and Denies night sweats Eyes: Eyes: Reports no additional eye complaints, Denies blurry vision, Denies change in vision, Denies diplopia, Reports eye discharge (left eye), Denies loss of vision and Denies eye pain ENT: Denies dizziness Cardiovascular: Cardiovascular: Reports no additional cardiovascular complaints, Denies chest pain, Denies lightheadedness, Denies Loss of Consciousness and Denies dyspnea Respiratory: Respiratory: Reports no additional respiratory complaints and Denies dyspnea Gastrointestinal: Gastrointestinal: Reports no additional gastrointestinal complaints, Denies abdominal pain, Denies melena, Denies hematochezia, Denies change in bowel habits and Denies change in stool character Genitourinary: Genitourinary: Reports no additional male genitourinary complaints, Denies hematuria, Denies oliguria, Denies difficulty urinating, Denies dysuria, Denies urinary frequency, Denies urinary hesitancy, Denies urinary incontinence and Denies urinary urgency Musculoskeletal: Musculoskeletal: Reports no additional musculoskeletal complaints, Denies numbness and Denies tingling Neurologic: Denies dizziness, Denies loss of vision, Denies numbness and Denies tingling Psychiatric: Psychiatric: Reports no additional psychiatric complaints Endocrine: Endocrine: Reports no additional endocrine complaints Hematologic/Lymphatic: Hematologic/Lymphatic: Reports no additional hematologic/lymphatic complaints Allergic/Immunologic: Allergic/Immunologic: Reports no additional allergic/immunologic complaints [facility] Past Medical History Attestation statement: The following information was validated with the patient. Source: old records reviewed Medical History Bronchitis Morbid obesity Nephrolithiasis Obesity Super obesity Family History Family History Mother No problems noted. Father Heart attack Social History Social History Housing: Apartment Alcohol intake: never Patient Tobacco Use Status: Never used Tobacco e-Cigarette/Vaping Use: Never Used Second Hand Smoke Exposure: No Advance Directives: No Advance Directives Information Provided: No service: No Current occupational status: employed and disabled Cognitive needs: No Hearing needs: No Vision needs: No Physical Exam ED Vital Signs: Vital Signs - 24 hr 08/08/22 17:21 Temperature 98.1 F Pulse Rate 87 Respiratory Rate 20 Blood Pressure 119/60 Pulse Oximetry 97 Oxygen Delivery Method Room Air BMI result Body Mass Index 69.0 Const General: cooperative, no acute distress, alert and awake Nutritional Appearance: well nourished Orientation/consciousness: patient oriented x3 Limitations: no limitations HENMT Head: Yes normal to inspection and Yes atraumatic Ears: hearing grossly normal bilaterally and external ears normal General nose exam: Normal external nose present, no nasal discharge noted and no epistaxis Face and sinus: Yes normal facial exam, No abrasion and No laceration Mouth: Normal oral and palatal mucosa present, no drooling and no muffled voice Eyes Other: yellowish discharge present Periorbital: periorbital findings normal Eyelids: Yes eyelids normal Pupils: Equal, round and reactive pupils present EOM: EOMs intact bilaterally Neck Neck: Yes normal visual inspection, Yes full ROM and Yes no lymphadenopathy Chest Chest palpation & inspection: normal inspection of the chest Resp Effort & Inspection: normal respiratory effort and able to speak in complete sentences Auscultation: clear to auscultation bilaterally Cardio Rate: regular rate Rhythm: regular rhythm GI Inspection: Yes normal to inspection Neuro General: patient oriented x3 and moves all extremities Cranial nerves: Yes Equal, round and reactive pupils present Cognition (Neuro): normal cognition Motor exam (neuro): 5/5 motor strength present throughout Sensory Exam: Normal double simultaneous stimulation for sensation Coordination: [id number] test normal Extrem General: Yes normal to inspection, Yes full ROM and Yes capillary refill normal Psych Appearance: grossly normal Mental Status: mental status grossly normal Affect: normal affect Attitude: cooperative Thought process: Normal thought process present Thought content: Normal thought content present Insight: Good insight present (Psych) Medical Decision Making MDM Narrative Medical decision making narrative: Patient is a 52 year old assigned male at with a history of asthma presenting to the emergency department today with left eye drainage. Patient's physical exam showed yellowish discharged from the left eye but was otherwise unremarkable. Patient's clinical presentation is most consistent with conjunctivitis. I explained my physical exam findings as well as all test results to the patient. I answered all questions asked by the patient. I stressed the importance of the patient taking his medication as prescribed. I stressed the importance of the patient following up with his primary care provider. I stressed the importance of the patient returning to the emergency department immediately if his symptoms were to worsen or if he were to develop any dizziness, shortness of breath, difficulty breathing, chest pain, blurry vision, loss of vision, nausea, vomiting, abdominal pain, fever, chills, back pain, or any other complaints. Patient verbalized agreement and understanding with this treatment plan and discharge. Medical Records Medical records reviewed: Yes I reviewed the patient's medical records. Discharge Plan Discharge Clinical Impression: Conjunctivitis Patient Disposition: Home, Self-Care Instructions: Conjunctivitis (ED) Additional Instructions: Follow up with your primary care provider. Return to the emergency department immediately if your symptoms worsen or if you develop any dizziness, shortness of breath, difficulty breathing, chest pain, blurry vision, loss of vision, nausea, vomiting, abdominal pain, fever, chills, back pain, or any other complaints. Prescriptions: New erythromycin 5 mg/gram (0.5 %) ointment 0.5 inch ophthalmic (eye) Q4H Qty: 3.5 0RF No Action albuterol sulfate 2.5 mg /3 mL (0.083 %) solution for nebulization 2.5 mg inhalation Q4H PRN (Reason: bronchospasm) Qty: 90 8RF albuterol sulfate 90 mcg/actuation HFA aerosol inhaler 2 puff inhalation Q4-6H PRN (Reason: bronchospasm) 30 Days Qty: 8.5 8RF Flovent HFA 110 mcg/actuation HFA aerosol inhaler 2 puff inhalation BID Qty: 12 8RF azithromycin 250 mg tablet See Rx Instructions PO .COMPLEX Qty: 6 0RF Rx Instructions: take 500 mg today (day 1), then 250 mg for 4 days (days 2-5) PO amoxicillin 500 mg capsule 500 mg PO Q8H 7 Days Qty: 21 0RF Referrals: Javier Benoit MD [Primary Care Provider] - Stand Alone Forms: Work/School Release Interventions: ED Discharge Assessment Last Done: 08/08/22 19:33 Discharge Date/Time: 08/08/22 19:33 Print Language: Paraguayan
== END 2022-08-08 19:33 | disposition home or self-care (01) ==
PROVIDERS: Emergency Provider Emergency Medicine Emergency Medical Services; PCP Internal Medicine
DX: H10.32 Unspecified acute conjunctivitis, left eye (principal); Z79.899 Other long term (current) drug therapy
CPT/HCPCS: 99282; 99283

== ENCOUNTER 2022-11-22 22:05 | Observation (INO) | payer OTHER, SELFPAY ==
--- NOTE | 2022-11-22 | ECG_ITS ---
Test Reason : SOB Blood Pressure : / mmHG Vent. Rate : 102 BPM Atrial Rate : 102 BPM P-R Int : 124 ms QRS Dur : 086 ms QT Int : 336 ms P-R-T Axes : 032 018 031 degrees QTc Int : 437 ms Sinus tachycardia Otherwise normal ECG When compared with ECG of 15-AUG-2014 17:15, No significant change was found Referred By: Generic ED Physician Electronically Signed By:DANIELITO JOHNSON MD
--- NOTE | ~2022-11-22 | XR_ITS ---
EXAMINATION: XR CHEST CLINICAL INFORMATION: Dyspnea. COMPARISON: Chest x-ray 08/21/2021 TECHNIQUE: 2 views of the chest were obtained. FINDINGS: No significant abnormality is noted involving the heart, lungs, mediastinum, bony thorax or soft tissues. XR/XR chest 2V IMPRESSION: Unremarkable examination.
[2022-11-22 22:13] VITALS: BP 185/105; PULSE 99; RESP 20; TEMP 36.8; O2SAT 96; BMI 41.8
[2022-11-22 22:32] LABS: MANUAL DIFF FLAG NO
[2022-11-22 22:39] LABS: Basophils Absolute Auto 0.1 X10*3/uL (0.0-0.2); Basophils Percent Auto 0.5 % (0-2); Eosinophils Absolute Auto 0.6 X10*3/uL (0.0-0.4); Eosinophils Percent Auto 5.9 % (0-4); Hematocrit 38.8 % (42.0-52.0); Hemoglobin 12.5 g/dl (14.0-18.0); Imm Gran Abs Auto 0.05 X10*3/uL (0.00-0.03); Imm Gran Pct Auto 0.5 % (0.0-0.4); Lymphocytes Absolute Auto 1.6 X10*3/uL (1.2-4.9); Lymphocytes Percent Auto 15.6 % (20-40); Mean Corpuscular HGB Conc 32.2 g/dl (31.0-36.0); Mean Corpuscular Hemoglobin 28.4 pg (27.0-33.0); Mean Corpuscular Volume 88.2 fL (80.0-98.0); Mean Platelet Volume 9.6 fL (9.4-12.4); Monocytes Absolute Auto 0.8 X10*3/uL (0.1-1.2); Monocytes Percent Auto 7.3 % (2-11); Neutrophils Absolute Auto 7.4 x10*3/uL (2.0-8.3); Neutrophils Percent Auto 70.2 % (45-73); Platelet Count 272 X10*3/uL (160-400); Red Cell Distribution Width 12.5 % (11.0-16.0); White Blood Count 10.5 X10*3/uL (4.8-10.8)
[2022-11-22 23:05] LABS: Alanine Aminotransferase 31 U/L (0-40); Albumin Level 3.4 g/dL (3.5-5.0); Alkaline Phosphatase 73 U/L (39-117); Anion Gap 10 (12-20); Aspartate Amino Transferase 24 U/L (5-37); Bilirubin Total 0.2 mg/dL (0.0-1.0); Blood Urea Nitrogen 16 mg/dL (9-16); Calcium 8.6 mg/dL (8.4-10.2); Carbon Dioxide 28 mmol/L (22-29); Chloride 107 mmol/L (96-108); Creatinine Clr Calc Pharmacy 154.1; Estimated Glomerular Filt Rate > 60; Glucose Random 150 mg/dL (60-115); Potassium 4.2 mmol/L (3.3-5.1); Sodium 141 mmol/L (135-145); Total Protein 7.2 g/dL (6.5-8.0)
[2022-11-22 23:39] LABS: INTERNATIONAL NORM RATIO 1.1 (0.9-1.1); Prothrombin Time 13.2 SEC (10.0-13.1)
[2022-11-22] MEDS: LORazepam 2 MG/ML VIAL IM (23:39)
[2022-11-22] MEDS: methylPREDNISolone Sod Succ 125 MG/2 ML VIAL IVPUSH (23:40)
[2022-11-22] MEDS: Magnesium Sulfate/D5W 1 GM/100 ML PIGGYBACK IV (23:40)
[2022-11-22 23:41] LABS: Partial Thromboplastin Time 31.7 SEC (26.0-36.4)
[2022-11-22 23:48] VITALS: PULSE 106; RESP 16; O2SAT 92
[2022-11-22] MEDS: Albuterol/Iprat 2.5/0.5MG 3 ML AMPUL.NEB INHALE (23:48)
[2022-11-22 23:59] LABS: B Type Natriuretic Peptide 12 pg/mL (<100)
[2022-11-23] VITALS (10 sets, daily range): BP systolic 112–147; BP diastolic 66–77; PULSE 98–123; RESP 16–20; TEMP 36.6–37.1; O2SAT 90–98
[2022-11-23 00:04] LABS: Troponin-I High Sensitivity < 3.5 ng/L (<3.5-35.0)
--- NOTE | 2022-11-23 00:13 | ED.GENADULT ---
HPI - General Adult General Chief complaint: Dyspnea Stated complaint: Diff Breathing Time Seen by Provider: 11/22/22 23:06 Source: patient Mode of arrival: ambulatory Limitations: no limitations History of Present Illness HPI narrative: 52-year-old male with history of anxiety and asthma presents to the ED for shortness of breath asthma exacerbation after being exposed to Guinea pigs. states daughter was cleaning a cage of Guinea pigs and is allergic to guinea pigs and was exposed to there for which caused him to have shortness of breath and asthma exacerbation. Patient had no improvement with albuterol nebulizers. Related Data Home Medications Medication Instructions Recorded Confirmed albuterol sulfate 90 mcg/actuation 2 puff inhalation Q4-6H PRN muscle 11/23/22 11/23/22 aerosol inhaler (ProAir HFA) spasm fluticasone propionate 110 2 puff inhalation BID 11/23/22 11/23/22 mcg/actuation HFA aerosol inhaler (Flovent HFA) Allergies Allergy/AdvReac Type Severity Reaction Status Date / Time acetaminophen [Vicodin] Allergy Severe shortness Verified 11/23/22 17:44 of breath hydrocodone [Vicodin] Allergy Severe shortness Verified 11/23/22 17:44 of breath hydromorphone [From Dilaudid] Allergy Severe UNKNOWN, Verified 11/23/22 17:44 Tongue swelling From VICODIN Allergy Severe ANAPHYLAXIS Uncoded 11/23/22 17:44 Hydrocodone-Acetaminophen Allergy Severe itchiness Uncoded 11/23/22 17:44 SEASONAL ALLERGIES Allergy Severe Wheezing Uncoded 11/23/22 17:44 Review of Systems Review of Systems: Pain returned, anxiety Yes all other systems are reviewed and are negative PMFSH Past Medical History Medical History Bronchitis Morbid obesity Nephrolithiasis Obesity Super obesity Family History Family History Mother No problems noted. Father Heart attack Social History Social History Household Members: Spouse and Children Housing: House Do you presently have visiting nurse or other home services: No Alcohol intake: never Patient Tobacco Use Status: Never used Tobacco e-Cigarette/Vaping Use: Never Used Second Hand Smoke Exposure: Yes service: No Current occupational status: employed and disabled Cognitive needs: No Hearing needs: No Vision needs: No Physical Exam ED Vital Signs: Vital Signs - 24 hr 11/22/22 22:13 11/22/22 23:48 11/23/22 00:05 Temperature 98.3 F 97.8 F Pulse Rate 99 106 H 109 H Respiratory Rate 20 16 19 Blood Pressure 185/105 H 147/77 H Pulse Oximetry 96 94 Oxygen Delivery Method Room Air Nasal Cannula Oxygen Flow Rate 2 11/23/22 01:46 Temperature Pulse Rate 102 H Respiratory Rate 18 Blood Pressure Pulse Oximetry Oxygen Delivery Method Oxygen Flow Rate BMI result Body Mass Index 41.8 Const General: cooperative, healthy appearing, comfortable, no acute distress, well developed, alert and awake Orientation/consciousness: oriented to person, oriented to place, oriented to time and patient oriented x3 HENMT Head: Yes normal to inspection, Yes No palpable skull fracture present, Yes normocephalic, Yes atraumatic and Yes abrasion Eyes General: appearance normal, both eyes and all related structures Neck Neck: Yes normal visual inspection, Yes full ROM, Yes no lymphadenopathy, Yes no meningeal signs, Yes trachea midline, Yes supple, No anterior neck swelling and No tender Chest Chest palpation & inspection: normal inspection of the chest and normal palpation of entire chest wall Resp Effort & Inspection: normal respiratory effort and able to speak in complete sentences Auscultation: wheezes expiratory wheezes Cardio Jugular venous distension: no JVD Heart sounds: S1 normal heart sound present and S2 normal heart sound present GI Inspection: Yes normal to inspection and No abdominal wall ecchymosis Palpation (GI): Soft to palpation, not firm, nontender and no guarding General: No CVA tenderness and Yes no CVA tenderness Back/Spine/Pelvis Back: no CVA tenderness, No CVA tenderness and No back tenderness Skin General skin exam: no rashes or lesions noted and elasticity normal Neuro General: oriented to person, oriented to place, oriented to time, patient oriented x3, gait normal, tone normal, moves all extremities, Normal light touch and pain sensation, no meningeal signs, no focal motor deficits and CN's II-XI intact bilaterally Extrem Other: Lower extremity negative for swelling, pitting edema, calf tenderness General: Yes normal to inspection and Yes full ROM Psych Appearance: grossly normal, well kempt and not disheveled Course Course Course Narrative: Patient tachypneic and anxious while having wheezing. EKG labs troponin BNP ordered due to age. Ativan given to help calm down patient. Chest x-ray ordered. Reevaluation(s) Reevaluation #1: Patient after receiving albuterol, magnesium, Solu-Medrol still had audible wheezing and wheezing in the lungs. Another round of albuterol was ordered. Case discussed with hospitalist for admission for asthma exacerbation. Patient was informed due to his known history of Guinea pigs he might need to either remove Guinea pigs from the home recommend up appointment with clothing trades workers for shots so patient could deal with kidney pains at the house. Patient agreeable to admission. Troponin BNP EKG negative STEMI Time: 01:57 Medications Administered Generic Name Dose Route Start Last Admin Trade Name Freq PRN Reason Stop Dose Admin Albuterol/Ipratropium 3 ml 11/23/22 08:00 11/23/22 14:54 Albuterol/Iprat 2.5/0.5mg 3 Ml Ampul.Neb INHALE 3 ml RQ4H WHILE AWAKE AUGUST Administration Enoxaparin Sodium 40 mg 11/23/22 08:00 11/23/22 07:10 Enoxaparin Sodium 40 Mg/0.4 Ml Syringe SUBCUT 40 mg Q24H AUGUST Administration Methylprednisolone Sodium Succinate 40 mg 11/23/22 12:00 11/23/22 11:50 Methylprednisolone Sod Succ 40 Mg/Ml Vial IVPUSH 40 mg Q12H AUGUST Administration Sodium Chloride 3 ml 11/23/22 08:00 11/23/22 15:28 0.9 % Sodium Chloride Flush 3 Ml Syringe IVFLUSH 3 ml QSHIFT AUGUST Administration Discontinued Medications Generic Name Dose Route Start Last Admin Trade Name Freq PRN Reason Stop Dose Admin Albuterol Sulfate 5 mg 11/23/22 01:34 11/23/22 01:44 Albuterol Sulfate (0.083%) 2.5 Mg/3 Ml Vial.Neb INHALE 11/23/22 01:35 5 mg ONCE ONE Administration Albuterol/Ipratropium 3 ml 11/22/22 23:21 11/22/22 23:48 Albuterol/Iprat 2.5/0.5mg 3 Ml Ampul.Neb INHALE 11/22/22 23:22 3 ml ONCE ONE Administration Magnesium Sulfate/Dextrose 1 gm in 100 mls @ 100 mls/hr 11/22/22 23:22 11/23/22 01:10 Magnesium Sulfate/D5w IV 11/23/22 00:21 Infused ONCE ONE Infusion Lorazepam 2 mg 11/22/22 23:24 11/22/22 23:39 Lorazepam 2 Mg/Ml Vial IM 11/22/22 23:25 2 mg STAT STA Administration Methylprednisolone Sodium Succinate 125 mg 11/22/22 23:21 11/22/22 23:40 Methylprednisolone Sod Succ 125 Mg/2 Ml Vial IVPUSH 11/22/22 23:22 125 mg ONCE ONE Administration Medical Decision Making Medical Decision Making MDM Narrative: 52-year-old male presents to the ED for asthma exacerbation. History physical exam does not indicate PE, CHF, myocardial infarction. Differential Diagnosis Differential Diagnoses: The differential diagnosis associated with the presentation includes (Asthma exacerbation, COVID, influenza, pneumonia, CHF, heart attack, be) Admission/Observation Consideration of admission/observation: Escalation of care including admission/observation considered admit Consult Healthcare Provider Management of the patient was discussed with: Hospitalist Lab Data [facility] Lab Attestation statement: I reviewed the patient's lab results. 11/22/22 22:30 11/22/22 22:30 Labs: Lab Results 11/22/22 11/22/22 11/22/22 Range/Units 22:30 22:30 23:28 WBC 10.5 (4.8-10.8) X10*3/uL RBC 4.40 L (4.60-5.80) X10*6/uL Hgb 12.5 L (14.0-18.0) g/dl Hct 38.8 L (42.0-52.0) % MCV 88.2 (80.0-98.0) fL MCH 28.4 (27.0-33.0) pg MCHC 32.2 (31.0-36.0) g/dl RDW 12.5 (11.0-16.0) % Plt Count 272 (160-400) X10*3/uL MPV 9.6 (9.4-12.4) fL Immature Gran % (Auto) 0.5 H (0.0-0.4) % Neut % (Auto) 70.2 (45-73) % Lymph % (Auto) 15.6 L (20-40) % [place] % (Auto) 7.3 (2-11) % Eos % (Auto) 5.9 H (0-4) % Baso % (Auto) 0.5 (0-2) % Lymph # (Auto) 1.6 (1.2-4.9) X10*3/uL [place] # (Auto) 0.8 (0.1-1.2) X10*3/uL Eos # (Auto) 0.6 H (0.0-0.4) X10*3/uL Baso # (Auto) 0.1 (0.0-0.2) X10*3/uL Abs Immat Gran (auto) 0.05 H (0.00-0.03) X10*3/uL Absolute Neuts (auto) 7.4 (2.0-8.3) x10*3/uL Absolute Nucleated RBC 0.000 (0.0-0.012) X10*3/uL Nucleated RBC % (auto) 0.0 (0.0-0.2) /100WBC PT 13.2 H (10.0-13.1) SEC INR 1.1 (0.9-1.1) APTT 31.7 (26.0-36.4) SEC Sodium 141 (135-145) mmol/L Potassium 4.2 (3.3-5.1) mmol/L Chloride 107 (96-108) mmol/L Carbon Dioxide 28 (22-29) mmol/L Anion Gap 10 L (12-20) BUN 16 (9-16) mg/dL Creatinine 0.79 (0.5-1.4) mg/dL Estim Creat Clear Calc 154.1 Estimated GFR > 60 Random Glucose 150 H (60-115) mg/dL Calcium 8.6 (8.4-10.2) mg/dL Total Bilirubin 0.2 (0.0-1.0) mg/dL AST 24 (5-37) U/L ALT 31 (0-40) U/L Alkaline Phosphatase 73 (39-117) U/L Troponin I High Sens (<3.5-35.0) ng/L B-Natriuretic Peptide (<100) pg/mL Total Protein 7.2 (6.5-8.0) g/dL Albumin 3.4 L (3.5-5.0) g/dL Influenza Type A (PCR) (Negative) Influenza Type B (PCR) (Negative) RSV RNA Qual (PCR) (Negative) SARS-CoV-2 RNA (RT-PCR) (Negative) 11/22/22 11/22/22 11/22/22 Range/Units 23:28 23:28 23:52 WBC (4.8-10.8) X10*3/uL RBC (4.60-5.80) X10*6/uL Hgb (14.0-18.0) g/dl Hct (42.0-52.0) % MCV (80.0-98.0) fL MCH (27.0-33.0) pg MCHC (31.0-36.0) g/dl RDW (11.0-16.0) % Plt Count (160-400) X10*3/uL MPV (9.4-12.4) fL Immature Gran % (Auto) (0.0-0.4) % Neut % (Auto) (45-73) % Lymph % (Auto) (20-40) % [place] % (Auto) (2-11) % Eos % (Auto) (0-4) % Baso % (Auto) (0-2) % Lymph # (Auto) (1.2-4.9) X10*3/uL [place] # (Auto) (0.1-1.2) X10*3/uL Eos # (Auto) (0.0-0.4) X10*3/uL Baso # (Auto) (0.0-0.2) X10*3/uL Abs Immat Gran (auto) (0.00-0.03) X10*3/uL Absolute Neuts (auto) (2.0-8.3) x10*3/uL Absolute Nucleated RBC (0.0-0.012) X10*3/uL Nucleated RBC % (auto) (0.0-0.2) /100WBC PT (10.0-13.1) SEC INR (0.9-1.1) APTT (26.0-36.4) SEC Sodium (135-145) mmol/L Potassium (3.3-5.1) mmol/L Chloride (96-108) mmol/L Carbon Dioxide (22-29) mmol/L Anion Gap (12-20) BUN (9-16) mg/dL Creatinine (0.5-1.4) mg/dL Estim Creat Clear Calc Estimated GFR Random Glucose (60-115) mg/dL Calcium (8.4-10.2) mg/dL Total Bilirubin (0.0-1.0) mg/dL AST (5-37) U/L ALT (0-40) U/L Alkaline Phosphatase (39-117) U/L Troponin I High Sens < 3.5 (<3.5-35.0) ng/L B-Natriuretic Peptide 12 (<100) pg/mL Total Protein (6.5-8.0) g/dL Albumin (3.5-5.0) g/dL Influenza Type A (PCR) NEGATIVE (Negative) Influenza Type B (PCR) NEGATIVE (Negative) RSV RNA Qual (PCR) NEGATIVE (Negative) SARS-CoV-2 RNA (RT-PCR) NEGATIVE (Negative) Independent Interpretation I performed an independent interpretation of an: EKG Interpretation: Sinus tachycardia. Ventricular rate 102. LA interval 134. QRS 86 pr QTC 437. Negative STEMI Radiology Impression Discussion of test interpretation with radiology: I have reviewed the radiologist's reading. Discharge Plan Discharge Clinical Impression: Asthma exacerbation Patient Disposition: Admitted As Inpatient Interventions: Admission Worksheet (ED) Last Done: 11/23/22 15:54 Discharge Date/Time: 11/23/22 15:55
--- NOTE | 2022-11-23 00:23 | PC.NURSE ---
Pt. in room with at bedside. Pt. has had several anxiety attacks related to asthma exacerbation. Pt. medicated with lorazapem per MAR and pt. now resting more quietly and less anxious.
[2022-11-23 00:33] LABS: Influenza A PCR NEGATIVE (Negative); Influenza B PCR NEGATIVE (Negative); Resp Syncy Virus RNA Qual PCR NEGATIVE (Negative); SARS COV2 PCR INHOUSE NEGATIVE (Negative)
[2022-11-23] MEDS: Albuterol Sulfate (0.083%) 2.5 MG/3 ML VIAL.NEB 5 MG INHALE (01:44)
--- NOTE | 2022-11-23 02:09 | PM.IMHP ---
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 Patient reports dry cough, no sputum production, no fever chills, reports chest tightness whenever he takes a deep breath, denies any abdominal pain nausea or vomiting, no palpitations, no urinary symptoms and no lower extremity edema. on arrival to the ED patient found to have a heart rate in the low 100s, stable blood pressure, satting 96% on room air Labs are significant for WBC count of 10.5, labs otherwise unremarkable COVID-19, RSV, influenza negative Chest x-ray unremarkable Review of Systems Review of Systems: Yes all other systems are reviewed and are negative [facility] Medical History Bronchitis Morbid obesity Nephrolithiasis Obesity Super obesity Family History Mother No problems noted. Father Heart attack Social History Housing: Apartment Alcohol intake: never Patient Tobacco Use Status: Never used Tobacco Smoked in Last 30 Days: No e-Cigarette/Vaping Use: Never Used Second Hand Smoke Exposure: No Advance Directives: No Advance Directives Information Provided: No Nutrition Risks: No Nutritional Risk service: No Current occupational status: employed and disabled Cognitive needs: No Hearing needs: No Vision needs: No Meds Allergies Allergy/AdvReac Type Severity Reaction Status Date / Time acetaminophen [Vicodin] Allergy Unknown shortness Verified 11/21/21 11:24 of breath hydrocodone [Vicodin] Allergy Unknown shortness Verified 11/21/21 11:24 of breath hydromorphone [From Dilaudid] Allergy Unknown UNKNOWN, Verified 11/21/21 11:24 Tongue swelling From VICODIN Allergy Unknown ANAPHYLAXIS Uncoded 05/02/21 11:05 Hydrocodone-Acetaminophen Allergy Unknown itchiness Uncoded 05/02/21 11:05 SEASONAL ALLERGIES Allergy Unknown Wheezing Uncoded 05/02/21 11:05 Home Medications Medication Instructions Recorded Confirmed Last Taken Type albuterol sulfate 90 mcg/actuation 2 puff inhalation Q4-6H PRN muscle 11/23/22 11/23/22 Unknown History aerosol inhaler (ProAir HFA) spasm fluticasone propionate 110 2 puff inhalation BID 11/23/22 11/23/22 Unknown History mcg/actuation HFA aerosol inhaler (Flovent HFA) Physical Exam Vital Signs and Narrative: Vital Signs: Last Vital Signs Temp 97.8 F 11/23/22 00:05 Pulse 102 H 11/23/22 01:46 Resp 18 11/23/22 01:46 BP 147/77 H 11/23/22 00:05 Pulse Ox 94 11/23/22 00:05 O2 Del Method 11/23/22 00:05 O2 Flow Rate 2 11/23/22 00:05 BMI result Body Mass Index 41.8 Const: General: cooperative and no acute distress Orientation/consciousness: patient oriented x3 Eyes: General: appearance normal, both eyes and all related structures Resp: Other: poor air movement, decreased breath sounds, expiratory wheezing Effort & Inspection: normal respiratory effort Cardio: Rate: regular rate Rhythm: regular rhythm GI: Palpation (GI): Soft to palpation Auscultation: normal bowel sounds Skin: General skin exam: no rashes or lesions noted Neuro: General: patient oriented x3 Cognition (Neuro): normal cognition Extrem: General: Yes normal to inspection and Yes no pedal edema Results Labs 11/22/22 22:30 11/22/22 22:30 Labs: Laboratory Results - last 24 hr 11/22/22 11/22/22 11/22/22 22:30 22:30 23:28 MCV 88.2 MCH 28.4 MCHC 32.2 RDW 12.5 Plt Count 272 MPV 9.6 Immature Gran % (Auto) 0.5 H Neut % (Auto) 70.2 Lymph % (Auto) 15.6 L Gilmer % (Auto) 7.3 Eos % (Auto) 5.9 H Baso % (Auto) 0.5 Lymph # (Auto) 1.6 Gilmer # (Auto) 0.8 Eos # (Auto) 0.6 H Baso # (Auto) 0.1 Abs Immat Gran (auto) 0.05 H Absolute Neuts (auto) 7.4 Absolute Nucleated RBC 0.000 Nucleated RBC % (auto) 0.0 PT 13.2 H INR 1.1 APTT 31.7 Anion Gap 10 L Estim Creat Clear Calc 154.1 Estimated GFR > 60 Random Glucose 150 H Calcium 8.6 Total Bilirubin 0.2 AST 24 ALT 31 Alkaline Phosphatase 73 Troponin I High Sens B-Natriuretic Peptide Total Protein 7.2 Albumin 3.4 L Influenza Type A (PCR) Influenza Type B (PCR) RSV RNA Qual (PCR) SARS-CoV-2 RNA (RT-PCR) 11/22/22 11/22/22 11/22/22 23:28 23:28 23:52 MCV MCH MCHC RDW Plt Count MPV Immature Gran % (Auto) Neut % (Auto) Lymph % (Auto) Gilmer % (Auto) Eos % (Auto) Baso % (Auto) Lymph # (Auto) Gilmer # (Auto) Eos # (Auto) Baso # (Auto) Abs Immat Gran (auto) Absolute Neuts (auto) Absolute Nucleated RBC Nucleated RBC % (auto) PT INR APTT Anion Gap Estim Creat Clear Calc Estimated GFR Random Glucose Calcium Total Bilirubin AST ALT Alkaline Phosphatase Troponin I High Sens < 3.5 B-Natriuretic Peptide 12 Total Protein Albumin Influenza Type A (PCR) NEGATIVE Influenza Type B (PCR) NEGATIVE RSV RNA Qual (PCR) NEGATIVE SARS-CoV-2 RNA (RT-PCR) NEGATIVE Imaging Radiologist's Impressions: Impressions Chest X-Ray 11/22/22 22:42 IMPRESSION: Unremarkable examination. Assessment and Plan (1) Asthma exacerbation: Status: Acute Plan 52-year-old male with past medical history of asthma presents the hospital with asthma exacerbation # acute asthma exacerbation - likely triggered by the Guinea pig in his house - spoke to him and his that they need to get rid of the Guinea pig given the fact that he has severe allergies to them - will treat with DuoNeb, steroids - monitor peak flow - monitor O2 requirement # morbid obesity - recommend follow-up with primary care for referral to a clinic DVT prophylaxis: Lovenox Time Spent With Patient Time: Total time managing care of this patient today ____ minutes. Quality Stroke Does the patient have a stroke diagnosis?: No VTE Prior VTE?: No VTE Risk Level:: Medical - moderate - high VTE Device Contraindication: Treatment Not Indicated VTE Drug Contraindication: N/A - Med Ordered
[2022-11-23 06:49] LABS: Basophils Percent Auto 0.3 % (0-2); Eosinophils Percent Auto 0.1 % (0-4); Hematocrit 40.5 % (42.0-52.0); Hemoglobin 12.8 g/dl (14.0-18.0); Imm Gran Abs Auto 0.07 X10*3/uL (0.00-0.03); Imm Gran Pct Auto 0.7 % (0.0-0.4); Lymphocytes Absolute Auto 0.5 X10*3/uL (1.2-4.9); Lymphocytes Percent Auto 4.6 % (20-40); MANUAL DIFF FLAG SCAN; Mean Corpuscular HGB Conc 31.6 g/dl (31.0-36.0); Mean Corpuscular Hemoglobin 28.2 pg (27.0-33.0); Mean Corpuscular Volume 89.2 fL (80.0-98.0); Mean Platelet Volume 10.4 fL (9.4-12.4); Monocytes Absolute Auto 0.1 X10*3/uL (0.1-1.2); Monocytes Percent Auto 0.7 % (2-11); Neutrophils Absolute Auto 9.3 x10*3/uL (2.0-8.3); Neutrophils Percent Auto 93.6 % (45-73); Platelet Count 278 X10*3/uL (160-400); Red Blood Count 4.54 X10*6/uL (4.60-5.80); Red Cell Distribution Width 12.5 % (11.0-16.0); SCAN SMEAR FLAG 1
[2022-11-23] MEDS: Enoxaparin Sodium 40 MG/0.4 ML SYRINGE SUBCUT (07:10)
[2022-11-23] MEDS: 0.9 % Sodium Chloride Flush 3 ML SYRINGE IVFLUSH ×3 (07:10→23:31)
[2022-11-23 07:26] LABS: Blood Urea Nitrogen 16 mg/dL (9-16); Calcium 8.4 mg/dL (8.4-10.2); Creatinine Clr Calc Pharmacy 154.1; Estimated Glomerular Filt Rate > 60; Glucose Random 246 mg/dL (60-115)
--- NOTE | 2022-11-23 07:30 | PHA.MEDREC ---
Pharmacy Consult ? Medication Reconciliation Pharmacy has completed the medication reconciliation. Reviewed med rec done by nursing (Ita).
[2022-11-23 07:34] LABS: SLIDE REVIEW VERIFIED
[2022-11-23 07:35] LABS: Anion Gap 15 (12-20); Carbon Dioxide 20 mmol/L (22-29); Chloride 107 mmol/L (96-108); Potassium 4.4 mmol/L (3.3-5.1); Sodium 138 mmol/L (135-145)
--- NOTE | 2022-11-23 09:02 | PM.EVENT ---
Event Note Date of Service: 11/23/22 Event Note: Patient was seen and evaluated this morning Feels mildly better but still dyspneic and feeling difficulty taking a breath in Not requiring oxygen supplement Dyspnea with ambulation Will monitor overnight and continue steroids and nebulizer therapy Time Spent With Patient Time: Total time managing care of this patient today ____ minutes.
[2022-11-23] MEDS: Albuterol/Iprat 2.5/0.5MG 3 ML AMPUL.NEB INHALE ×3 (10:41→18:56)
[2022-11-23] MEDS: methylPREDNISolone Sod Succ 40 MG/ML VIAL IVPUSH ×2 (11:50→23:31)
[2022-11-23] MEDS: hydrOXYzine HCL 25 MG TABLET PO (23:53)
[2022-11-24 03:24] VITALS: BP 135/77; PULSE 95; RESP 17; TEMP 36.2; O2SAT 96
[2022-11-24 07:08] VITALS: BP 107/58; PULSE 88; RESP 18; TEMP 36; O2SAT 94
[2022-11-24 07:47] VITALS: PULSE 120; RESP 20; O2SAT 93
[2022-11-24] MEDS: Albuterol/Iprat 2.5/0.5MG 3 ML AMPUL.NEB INHALE ×2 (07:47→11:05)
--- NOTE | 2022-11-24 09:13 | MHC.CM.PN ---
[facility] DELIVERED PT LIVES IN A [facility] WITH , NO PREVIOUS SERVICES OR DME. +HCP ON FILE + COVID VAX X2 PCP DR. GET METCALF. DP: HOME, NO SERVICES ANTICIPATED. WILL TRANSPORT.
[2022-11-24] MEDS: Enoxaparin Sodium 40 MG/0.4 ML SYRINGE SUBCUT (09:21)
[2022-11-24] MEDS: 0.9 % Sodium Chloride Flush 3 ML SYRINGE IVFLUSH (09:23)
[2022-11-24 11:05] VITALS: PULSE 110; RESP 20; O2SAT 94
--- NOTE | 2022-11-24 12:09 | P.DS_ITS ---
DS: Providers Provider Date of Service: 11/24/22 Date of admission: 11/23/22 02:07 Primary care physician: Javier Benoit MD DS: Diagnosis Discharge Diagnosis (1) Asthma exacerbation: Status: Acute DS: Summary Hospital Course Hospital Course: Admission note HPI ?52-year-old male past medical history of asthma, allergic to? Guinea pig and owns 3 presents to the hospital with complaints of shortness of breath and wheezing.? Patient reports dry cough, no sputum production, no fever chills,? reports chest tightness whenever he takes a deep breath, denies any abdominal pain nausea or vomiting, no palpitations, no urinary symptoms and no lower extremity edema.? ?on arrival to the ED patient found to have a heart rate in the low 100s, stable blood pressure, satting 96% on room air Labs are significant for? WBC count of 10.5, labs otherwise unremarkable COVID-19, RSV, influenza negative Chest x-ray unremarkable Hospital course The patient was admitted to the hospital for evaluation of difficulty breathing. Found to be in asthma exacerbation requiring bronchodilator nebulizers and steroids with good response as he was weaned off the oxygen was able to ambulate with no reported dyspnea. Lungs sounded well on examination. He was asked to avoid any allergens in home and to follow-up as outpatient with his PCP. Avoid allergens that might cause exacerbation of your condition Continue prednisone for 3 more days and use your home nebulizer 4 times daily and as needed for the next 3 days Time Spent with Patient Time attestation: Total time managing care of this patient today ____ minutes. Discharge coordination time: Less than 30 minutes Quality: Safe Use of Opioids Does Pt have an Active Cancer Diagnosis on the Problem List?: No Quality: Stroke Does the patient have a stroke diagnosis?: No Physical Exam Vital Signs: Vital Signs: Last Vital Signs Temp 96.8 F 11/24/22 07:08 Pulse 110 H 11/24/22 11:05 Resp 20 11/24/22 11:05 BP 107/58 L 11/24/22 07:08 Pulse Ox 94 11/24/22 07:08 O2 Del Method 11/24/22 07:08 O2 Flow Rate 2 11/23/22 00:05 BMI result Body Mass Index 41.8 Const: Other: Constitutional : Awake, interactive,obese, not in distress Neck : Normal inspection, Supple Cardiovascular : RRR, no JVP, no lower extremity edema Respiratory : good bilateral air entry, no crackles, wheezes or rhonchi Gastrointestinal: soft, lax, Normal bowel sounds, Non tender Skin : Warm, Dry Neurological : Alert & oriented x3, No focal deficit , CN 2-12 within normal DS: Data Imaging Chest x-ray: Radiologist's impression: ITS Impressions Chest X-Ray 11/22/22 22:42 IMPRESSION: Unremarkable examination. Discharge Plan Discharge Anticipated Discharge Date/Time: 11/24/22 12:06 Patient Disposition: Home, Self-Care Discharge Diagnosis: Acute asthma exacerbation Referrals: Javier Benoit MD [Primary Care Provider] - 1 Week Discharge Medications: New prednisone 20 mg tablet 40 mg PO DAILY Qty: 6 0RF Continued albuterol sulfate [ProAir HFA] 90 mcg/actuation HFA aerosol inhaler 2 puff INHALATION Q4-6H PRN (Reason: muscle spasm) fluticasone propionate [Flovent HFA] 110 mcg/actuation HFA aerosol inhaler 2 puff inhalation BID Discharge Orders: Discharge Order (Routine); Ordered 11/24/22 Ordered By: Lucia San Diet: Advance to usual diet Activity on Discharge: As tolerated Stand Alone Forms: Patient Portal Discharge page Care Plan Goals: Read below Health Concerns: Read below Plan of Treatment: Read below Assessment: You were admitted to the hospital for treatment of asthma exacerbation. Responded well to bronchodilator nebulizers and steroids. Avoid allergens that might cause exacerbation of your condition Continue prednisone for 3 more days and use your home nebulizer 4 times daily and as needed for the next 3 days Patient Instructions: Asthma (DC)
--- NOTE | 2022-11-24 12:31 | MHC.CM.PN ---
DP: PT HAS BEEN MEDICALLY CLEARED FOR DC HOME, NO SERVICES. RN AWARE. [facility] WILL TRANSPORT HOME.
== END 2022-11-24 12:54 | disposition home or self-care (01) ==
LOC: HO.ED 11-23 02:04 → HO.EDOVER 11-23 07:03 → HO.S3 11-23 15:31
PROVIDERS: Physician Assistant; Admitting Provider Internal Medicine; Emergency Provider Internal Medicine; PCP Internal Medicine; Visit Provider Student in an Organized Health Care Education/Training Program
DX: J45.901 Unspecified asthma with (acute) exacerbation (principal); E66.01 Morbid (severe) obesity due to excess calories; Z68.41 Body mass index [BMI] 40.0-44.9, adult; Z20.822 Contact with and (suspected) exposure to COVID-19
CPT/HCPCS: 0241U; 36415; 71046; 80048; 80053; 83880; 84484; 85025; 85610; 85730; 93005; 94640; 96365; 96372; 96375; 96376; 99221; 99285; J1650; J2060; J2920; J2930; J3475

== ENCOUNTER 2022-12-03 09:59 | Outpatient (REF) | payer OTHER, SELFPAY ==
[2022-12-03 10:18] LABS: MANUAL DIFF FLAG NO
[2022-12-03 10:52] LABS: Basophils Absolute Auto 0.1 X10*3/uL (0.0-0.2); Basophils Percent Auto 0.5 % (0-2); Eosinophils Absolute Auto 0.5 X10*3/uL (0.0-0.4); Eosinophils Percent Auto 4.7 % (0-4); Hematocrit 41.7 % (42.0-52.0); Hemoglobin 13.2 g/dl (14.0-18.0); Imm Gran Abs Auto 0.08 X10*3/uL (0.00-0.03); Imm Gran Pct Auto 0.8 % (0.0-0.4); Lymphocytes Absolute Auto 1.8 X10*3/uL (1.2-4.9); Lymphocytes Percent Auto 17.6 % (20-40); Mean Corpuscular HGB Conc 31.7 g/dl (31.0-36.0); Mean Corpuscular Volume 88.3 fL (80.0-98.0); Mean Platelet Volume 9.7 fL (9.4-12.4); Monocytes Percent Auto 9.7 % (2-11); Neutrophils Absolute Auto 6.8 x10*3/uL (2.0-8.3); Neutrophils Percent Auto 66.7 % (45-73); Platelet Count 268 X10*3/uL (160-400); Red Blood Count 4.72 X10*6/uL (4.60-5.80); Red Cell Distribution Width 12.8 % (11.0-16.0); White Blood Count 10.2 X10*3/uL (4.8-10.8)
[2022-12-03 11:47] LABS: Alanine Aminotransferase 23 U/L (0-40); Albumin Level 3.4 g/dL (3.5-5.0); Alkaline Phosphatase 57 U/L (39-117); Anion Gap 12 (12-20); Aspartate Amino Transferase 15 U/L (5-37); Bilirubin Total 0.7 mg/dL (0.0-1.0); Blood Urea Nitrogen 16 mg/dL (9-16); Calcium 8.6 mg/dL (8.4-10.2); Carbon Dioxide 29 mmol/L (22-29); Chloride 107 mmol/L (96-108); Cholesterol 119 mg/dL; Estimated Glomerular Filt Rate > 60; Glucose Fasting 111 mg/dL (60-99); HDL Cholesterol 40 mg/dL; LDL Cholesterol Calculated 68 mg/dl; Potassium 4.5 mmol/L (3.3-5.1); Sodium 143 mmol/L (135-145); Total Protein 6.8 g/dL (6.5-8.0); Triglycerides 56 mg/dL
[2022-12-03 12:18] LABS: Thyroid Stimulating Hormone 1.32 uIU/mL (0.32-4.0)
== END 2022-12-03 10:00 | disposition home or self-care (01) ==
LOC: HO.LAB 09:59
PROVIDERS: PCP Internal Medicine; Visit Provider Internal Medicine
DX: D64.9 Anemia, unspecified (principal); N28.9 Disorder of kidney and ureter, unspecified; E78.5 Hyperlipidemia, unspecified; E03.9 Hypothyroidism, unspecified
CPT/HCPCS: 36415; 80053; 80061; 84443; 85025

== ENCOUNTER 2023-04-29 13:51 | Outpatient (AMB) | payer OTHER, SELFPAY ==
--- NOTE | 2023-04-29 13:55 | A.OFFPC_ITS ---
Vital Signs 04/29/23 13:57 Height 5 ft 2 in Weight 365 lb 8 oz BMI 66.8 BP 118/80 Blood Pressure Location Lt brachial Position Sitting Pulse 109 H Pulse Oximetry (%) 96 Intake Visit Reasons: [facility]//Blood clot in lungs Intake Note: Patient is here for hospital discharge follow up. Patient was discharged from [facility] on 04/23/23. Search Engine Marketing Specialist Required: No Top Inventory Control Executive: Not Required per policy Accompanied by: Self / Same As Patient Allergies acetaminophen [Vicodin] Allergy (Severe, Verified 04/29/23 13:56) shortness of breath hydrocodone [Vicodin] Allergy (Severe, Verified 04/29/23 13:56) shortness of breath hydromorphone [From Dilaudid] Allergy (Severe, Verified 04/29/23 13:56) UNKNOWN, Tongue swelling From VICODIN Allergy (Severe, Uncoded 11/23/22 17:44) ANAPHYLAXIS Hydrocodone-Acetaminophen Allergy (Severe, Uncoded 04/29/23 13:56) itchiness SEASONAL ALLERGIES Allergy (Severe, Uncoded 04/29/23 13:56) Wheezing Medication List - Last Reconciled 04/29/23 by Javier Benoit MD albuterol sulfate 90 mcg/actuation (ProAir HFA) 2 puffs inhalation Q4-6H PRN 30 days apixaban (Eliquis) 5 mg PO BID fluticasone propionate 110 mcg/actuation (Flovent HFA) 2 puffs inhalation BID Tobacco use date assessed: 04/29/23 Dental Screening Dental Screen Date: 04/29/23 Did you have a dental visit in the last 12 months?: No Did you have a dental problem in the last 6 months where you did not have access to dental care?: No Was dental information given to patient?: No HPI [facility]//Blood clot in lungs HPI Details had a PE and treated at [facility]; begun on Eliquis [facility] Medical History Bronchitis Morbid obesity Nephrolithiasis Obesity Super obesity Family History Mother No problems noted. Father Heart attack Social History Household Members: Spouse and Children Housing: House Do you presently have visiting nurse or other home services: No Alcohol intake: never Patient Tobacco Use Status: Never used Tobacco e-Cigarette/Vaping Use: Never Used Second Hand Smoke Exposure: Yes service: No Current occupational status: employed and disabled Cognitive needs: No Hearing needs: No Vision needs: No Questionnaire PHQ-9 Over the last 2 weeks, how often have you been bothered by any of the following problems? 1. Little interest or pleasure in doing things: several days 2. Feeling down, depressed, or hopeless: not at all 3. Trouble falling or staying asleep, or sleeping too much: several days 4. Feeling tired or having little energy: several days 5. Poor appetite or overeating: several days 6. Feeling bad about yourself - or that you are a failure or have let yourself or your family down: not at all 7. Trouble concentrating on things, such as reading the newspaper or watching television: not at all 8. Moving or speaking so slowly that other people could have noticed. Or the opposite - being so fidgety or restless that you have been moving around a lot more than usual: not at all 9. Thoughts that you would be better off or of hurting yourself in some way: not at all Total score: 4 Depression Screening Interpretation: Negative 11571 - PHQ-9 Billing: Yes Source: Developed by Drs. Vimal Santos, Rina Sibley, Pako Gee and colleagues, with an educational flako from [employer]. Thrive Questionnaire Date Thrive assessed: 04/29/23 I am a: Patient What is your living situation today?: I have a steady place to live Within the past 12 months, did the food you bought not last and you didn't have the money to get more?: Never true Within the past 12 months, did you worry whether your food would run out before you got money to buy more?: Never true Do you have trouble paying for medicines?: No Do you have trouble getting transportation to medical appointments?: No Do you have trouble paying your heating and electricity bill?: No Do you have trouble taking care of your child, family member or friend?: No Do you have trouble with day-to-day activities such as bathing, preparing meals, shopping, managing finances, etc.?: No Are you currently unemployed and looking for a job?: No Are you interested in more education?: No Currently or been in a relationship where the following occur: no concerns reported AUDIT C Alcohol Use Questionnaire (AUDIT-C) 1. How often do you have a drink containing alcohol?: Never Total Score: 0 Score Reviewed/Action Taken: Yes SHRUTHI-7 AMB Questionnaire SHRUTHI-7 Date SHRUTHI - 7 assessed: 04/29/23 Feeling nervous, anxious, or on edge: 3 = Nearly every day Not being able to stop or control worryin = Nearly every day Worrying too much about different things: 3 = Nearly every day Trouble relaxin = Nearly every day Being so restless that it is hard to sit still: 3 = Nearly every day Becoming easily annoyed or irritable: 3 = Nearly every day Feeling afraid as if something awful might happen: 3 = Nearly every day Total SHRUTHI-7 score (0-4 normal; 5-9 mild; 10-14 moderate; 15-21 severe): 21 Source: Developed by Drs. Vimal Santos, Rina Sibley, Pako Gee and colleagues, with an educational flako from [employer]. SHRUTHI-7 Assessment Billing SHRUTHI-7 Assessment Tool: SHRUTHI-7 Assessment 64638 Review of Systems Const Denies chills, Denies fatigue, Denies headache(s) and Denies weight loss Eyes Denies change in vision, Denies diplopia and Denies eye pain ENT Denies vertigo, Denies dizziness, Denies headache(s) and Denies nasal discharge Card Denies chest pain, Denies rapid heart rate and Denies dyspnea on exertion Resp Denies chest congestion, Denies cough, Denies pain with cough and Denies dyspnea on exertion GI Denies abdominal pain, Denies hematochezia and Denies change in bowel habits Musc Denies myalgias, Denies arthralgias and Denies joint swelling Skin/Breast Denies lesions and Denies unusual bruising Neuro Denies vertigo, Denies dizziness, Denies headache(s) and Denies focal weakness Endo Denies fatigue Physical exam (Primary Care) Vital Signs: Last Vital Signs Pulse 109 H 04/29/23 13:57 BP 118/80 07/19/23 13:57 Pulse Ox 96 04/29/23 13:57 BMI result Body Mass Index 66.8 Tobacco/Smoking Status: Tobacco use Status Tobacco use date assessed 04/29/23 04/29/23 13:57 Patient Tobacco Use Status Never used Tobacco 04/29/23 13:57 e-Cigarette/Vaping Use Never Used 04/29/23 13:57 PHQ-9: PHQ-9 Score PHQ-9: Total score 4 04/29/23 14:04 Depression Screening Interpretation: Negative Thrive Assessment: Date of Thrive Assessment Date Thrive assessed 04/29/23 04/29/23 14:04 Currently or been in a relationship where the following occur: no concerns reported Const General: cooperative, healthy appearing and no acute distress Orientation/consciousness: oriented to person, oriented to place and oriented to time HENMT Head: Yes normal to inspection, Yes normocephalic and Yes atraumatic Mouth: Normal oral and palatal mucosa present and tongue normal Throat: Yes posterior oropharynx normal and Yes uvula midline Eyes General: appearance normal, both eyes and all related structures Neck Neck: Yes normal visual inspection, Yes full ROM and Yes no lymphadenopathy Thyroid: Thyroid normal Carotids: normal carotid upstroke Chest Chest palpation & inspection: normal inspection of the chest Resp Effort & Inspection: normal respiratory effort and able to speak in complete sentences Auscultation: clear to auscultation bilaterally Cardio Jugular venous distension: no JVD Palpation: normal PMI Rate: regular rate Rhythm: regular rhythm Heart sounds: S1 normal heart sound present and S2 normal heart sound present GI Inspection: Yes normal to inspection Palpation (GI): Soft to palpation and No hepatosplenomegaly present Auscultation: normal bowel sounds General: Yes no CVA tenderness Back/Spine/Pelvis Back: no CVA tenderness Skin General skin exam: no rashes or lesions noted Neuro General: oriented to person, oriented to place and oriented to time Extrem General: Yes normal to inspection and Yes full ROM Assessment and Plan Assessment & Plan (1) Pulmonary embolism: Code(s): I26.99 - Other pulmonary embolism without acute cor pulmonale Plan: cont rx; echo and US (2) Morbid obesity: Code(s): E66.01 - Morbid (severe) obesity due to excess calories Plan: ref weight management Orders: Orders US venous duplex LE BI Today I26.99 - Other pulmonary embolism without acute cor pulmonale CA echo transthoracic complete Today I26.99 - Other pulmonary embolism without acute cor pulmonale Referrals Medical Weight Management Referral E66.01 - Morbid (severe) obesity due to excess calories Coding Level of Care Code Est Pt Level 4 (72441) Diagnoses Pulmonary embolism I26.99 Morbid obesity E66.01 Additional Codes SHRUTHI-7 Assessment Billing - SHRUTHI-7 Assessment Tool: SHRUTHI-7 Assessment [id number] ([id number])
[2023-04-29 13:57] VITALS: BP 118/80; PULSE 109; O2SAT 96; BMI 66.8
== END 2023-04-29 14:22 | disposition home or self-care (01) ==
PROVIDERS: PCP Internal Medicine; Visit Provider Internal Medicine
DX: I26.99 Other pulmonary embolism without acute cor pulmonale (principal); E66.01 Morbid (severe) obesity due to excess calories; Z68.44 Body mass index [BMI] 60.0-69.9, adult
CPT/HCPCS: 99214

== ENCOUNTER 2024-03-02 09:07 | Outpatient (AMB) | payer SELFPAY ==
[2024-03-02 09:09] VITALS: BP 120/80; PULSE 85; O2SAT 95
--- NOTE | 2024-03-02 09:09 | MHC.OFFWIV ---
Intake Vital Signs 03/02/24 09:09 Height 5 ft 2 in BP 120/80 Blood Pressure Location Rt brachial Position Sitting Pulse 85 Pulse Source Pulse Oximeter Pulse Oximetry (%) 95 Intake Visit Reasons: EP chest pain goes around lft side Intake Note: pt is chest discomfort goes down left side Patient Tobacco Use Status: Never used Tobacco Allergies acetaminophen [Vicodin] Allergy (Severe, Verified 03/02/24 09:14) shortness of breath hydrocodone [Vicodin] Allergy (Severe, Verified 03/02/24 09:14) shortness of breath hydromorphone [From Dilaudid] Allergy (Severe, Verified 03/02/24 09:14) UNKNOWN, Tongue swelling From VICODIN Allergy (Severe, Uncoded 11/23/22 17:44) ANAPHYLAXIS Hydrocodone-Acetaminophen Allergy (Severe, Uncoded 04/29/23 13:56) itchiness SEASONAL ALLERGIES Allergy (Severe, Uncoded 04/29/23 13:56) Wheezing Do you need a note to return to daycare/school/sports/work: No HPI EP chest pain goes around lft side HPI Details This is a 53 year old male patient who presents to the [place] clinic today with chest pain. He reports a dull left-sided chest pressure started about 8-9 days ago, and over the last 2 days has worsened and started wrapping around his left side and increasing pain. He describes this as constant, and tight/stabbing. Denies any cardiac history or htn. He denies any radiation of pain down arm or into jaw. Denies diaphoresis. Has had some mild intermittent shortness of breath. Has tried Tylenol and Vicks topically without relief. Patient is morbidly obese. His son Johnson is present with him today at visit. [facility] Medical History Morbid obesity Super obesity Nephrolithiasis Bronchitis Obesity Family History Mother No problems noted. Father Heart attack Social History Household Members: Spouse and Children Housing: House Do you presently have visiting nurse or other home services: No Alcohol intake: never Patient Tobacco Use Status: Never used Tobacco e-Cigarette/Vaping Use: Never Used Second Hand Smoke Exposure: Yes service: No Current occupational status: employed and disabled Cognitive needs: No Hearing needs: No Vision needs: No Review of Systems Const All systems reviewed & are unremarkable except as noted in HPI and below Physical Exam Const General: cooperative and no acute distress Nutritional Appearance: obese morbidly obese Orientation/consciousness: patient oriented x3 Limitations: no limitations HEENT Head: Yes normal to inspection Ears: hearing grossly normal bilaterally Eyes General: appearance normal, both eyes and all related structures Neck Neck: Yes no lymphadenopathy and Yes no JVD Chest Chest palpation & inspection: normal inspection of the chest and normal palpation of entire chest wall Resp Effort & Inspection: normal respiratory effort and able to speak in complete sentences Auscultation: clear to auscultation bilaterally Cardio Jugular venous distension: no JVD Palpation: normal PMI Rate: regular rate Rhythm: regular rhythm Heart sounds: S1 normal heart sound present and S2 normal heart sound present Skin General skin exam: no rashes or lesions noted Neuro General: patient oriented x3, tone normal and moves all extremities Extrem General: Yes capillary refill normal and Yes no clubbing, cyanosis or edema Psych Appearance: grossly normal Mental Status: mental status grossly normal Speech and movement: Normal speech and movement present Assessment & Plan Assessment & Plan (1) Chest pain: Code(s): R07.9 - Chest pain, unspecified Qualifiers: Chest pain type: unspecified Qualified Code(s): R07.9 - Chest pain, unspecified Plan: This is a 53 year old morbidly obese male patient with constant, tight/stabbing left sided pectoral chest pain which wraps laterally around left side of ribs. EKG in the office showed NSR 77. We discussed at length in the office that I cannot definitively rule out cardiac involvement based on findings at today's visit. I recommended he have workup in emergency department. Patient agrees to this. He denies need for EMS transport and will go with son in private vehicle to [place]. Copy of EKG provided to patient and expect call made to ED triage nurse Alisson at [facility]. Orders: Orders AMB EKG-In Office Today R07.9 - Chest pain, unspecified Coding Level of Care Code Est Pt Level 4 (16472) Diagnoses Chest pain, unspecified type R07.9 Chest pain type: unspecified
== END 2024-03-02 10:00 | disposition home or self-care (01) ==
PROVIDERS: PCP Internal Medicine; Visit Provider Nurse Practitioner Family
DX: R07.9 Chest pain, unspecified (principal)
CPT/HCPCS: 93000; 99214

== ENCOUNTER → 2024-06-16 14:14 | Outpatient (AMB) | payer SELFPAY ==
[2024-06-16 14:17] VITALS: BP 128/84; PULSE 101; TEMP 36.9; O2SAT 96; BMI 69.3
--- NOTE | 2024-06-16 14:17 | AM.OFFWIN_ITS ---
Intake Vital Signs 06/16/24 14:17 Height 5 ft 2 in Weight 379 lb BMI 69.3 BP 128/84 Blood Pressure Location Rt brachial Position Sitting Pulse 101 H Pulse Source Pulse Oximeter Temp 98.5 F Temp Source Oral Pulse Oximetry (%) 96 Oxygen Delivery Method Room Air Intake Visit Reasons: EP sharp pain Intake Note: pt c/o sharp epigastric pain. Started last night Patient Tobacco Use Status: Never used Tobacco Allergies acetaminophen [Vicodin] Allergy (Severe, Verified 06/16/24 14:18) shortness of breath hydrocodone [Vicodin] Allergy (Severe, Verified 06/16/24 14:18) shortness of breath hydromorphone [From Dilaudid] Allergy (Severe, Verified 06/16/24 14:18) UNKNOWN, Tongue swelling From VICODIN Allergy (Severe, Uncoded 06/16/24 14:18) ANAPHYLAXIS Hydrocodone-Acetaminophen Allergy (Severe, Uncoded 06/16/24 14:18) itchiness SEASONAL ALLERGIES Allergy (Severe, Uncoded 06/16/24 14:18) Wheezing Do you need a note to return to daycare/school/sports/work: No HPI HPI Comments History of Present Illness Details Patient is a 53-year-old male complaining of a cough for 3 weeks. He states he had COVID a few weeks ago and he has this lingering cough that just will not go away. He also states he is wheezing and he has asthma but he does not have his inhaler with him right now. He states he has been coughing so hard that he thinks he pulled a muscle in his back. He also points to the front of his abdomen stating he has pain in that area it was worse when he was coughing but now it hurts all the time. He denies any fevers, head congestion, sinus pain or ear pain. He denies any nausea vomiting or diarrhea or other GI symptoms. [facility] Medical History Morbid obesity Super obesity Nephrolithiasis Bronchitis Obesity Family History Mother No problems noted. Father Heart attack Social History Household Members: Spouse and Children Housing: House Do you presently have visiting nurse or other home services: No Alcohol intake: never Patient Tobacco Use Status: Never used Tobacco e-Cigarette/Vaping Use: Never Used Second Hand Smoke Exposure: Yes service: No Current occupational status: employed and disabled Cognitive needs: No Hearing needs: No Vision needs: No Review of Systems Const All systems reviewed & are unremarkable except as noted in HPI and below Physical Exam Vital Signs: Last Vital Signs Temp 98.5 F 06/16/24 14:17 Pulse 101 H 06/16/24 14:17 BP 128/84 06/16/24 14:17 Pulse Ox 96 06/16/24 14:17 Oxygen Delivery Method Room Air 06/16/24 14:17 BMI result Body Mass Index 69.3 Const General: cooperative, healthy appearing, comfortable and no acute distress Orientation/consciousness: patient oriented x3 Limitations: no limitations HEENT Head: Yes normal to inspection Ears: hearing grossly normal bilaterally and external ears normal General nose exam: Normal external nose present, Normal nares present and No nasal discharge present Eyes General: appearance normal, both eyes and all related structures Neck Neck: Yes normal visual inspection Resp Effort & Inspection: normal respiratory effort, able to speak in complete sentences, Actively coughing, no respiratory distress, not tachypneic, no tripod positioning and no use of accessory muscles Auscultation: wheezes expiratory wheezes, inspiratory wheezes and throughout Cardio Rate: regular rate Rhythm: regular rhythm Heart sounds: normal S1 and S2 Skin General skin exam: no rashes or lesions noted Neuro General: patient oriented x3 Extrem General: Yes normal to inspection and Yes no clubbing, cyanosis or edema Assessment & Plan Assessment & Plan (1) Asthma with exacerbation: Code(s): J45.901 - Unspecified asthma with (acute) exacerbation Plan: Gave patient 40 mg of prednisone in office, DuoNeb nebulizer treatment with relief, vital signs are stable and patient is well-appearing, breathing easier after his treatment. Recommended making sure he keeps his albuterol inhaler on him at all times. Sent Z-Jr to pharmacy for likely walking pneumonia. (2) Walking pneumonia: Code(s): J18.9 - Pneumonia, unspecified organism Plan: sent zpak Plan see above Orders: Orders AMB Nebulizer Treatment Today J45.901 - Unspecified asthma with (acute) exacerbation Medications: New azithromycin For 250 mg dose pack: take 500 mg today (day 1), then 250 mg for 4 days (days 2-5) PO 6 tabs 0RF prednisone 40 mg (2 x 20 mg) PO DAILY 8 tabs 0RF albuterol sulfate 2.5 mg (3 mL) inhalation ONCE 3 mL 0RF wheezing J45.901 - Unspecified asthma with (acute) exacerbation Coding Level of Care Code New Pt Level 4 (86233) Diagnoses Asthma with exacerbation J45.901 Walking pneumonia J18.9
== END ==
PROVIDERS: PCP Internal Medicine; Visit Provider Physician Assistant
DX: J45.901 Unspecified asthma with (acute) exacerbation (principal); J18.9 Pneumonia, unspecified organism
CPT/HCPCS: 99204

== ENCOUNTER → 2024-11-21 10:02 | Outpatient (BNVA) | payer OTHER, SELFPAY | PROVIDERS: PCP Internal Medicine; Visit Provider Internal Medicine | DX: J45.20 Mild intermittent asthma, uncomplicated (principal) | CPT/HCPCS: 99212 ==

== ENCOUNTER 2024-12-19 10:17 | Outpatient (AMB) | payer OTHER, SELFPAY ==
[2024-12-19 10:22] VITALS: BP 118/78; PULSE 100; O2SAT 95; BMI 66.5
--- NOTE | 2024-12-19 10:22 | A.OFFPC_ITS ---
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 Required: No Accompanied by: Self / Same As Patient Allergies acetaminophen [Vicodin] Allergy (Severe, Verified 12/19/24 10:34) shortness of breath hydrocodone [Vicodin] Allergy (Severe, Verified 12/19/24 10:34) shortness of breath hydromorphone [From Dilaudid] Allergy (Severe, Verified 12/19/24 10:34) UNKNOWN, Tongue swelling From VICODIN Allergy (Severe, Uncoded 12/19/24 10:34) ANAPHYLAXIS Hydrocodone-Acetaminophen Allergy (Severe, Uncoded 12/19/24 10:34) itchiness SEASONAL ALLERGIES Allergy (Severe, Uncoded 12/19/24 10:34) Wheezing Medication List - Last Reconciled 12/19/24 by CHIDI Ball albuterol sulfate 90 mcg/actuation 2 puffs inhalation Q4-6H PRN 30 days albuterol sulfate 2.5 mg (3 mL) inhalation Q4H PRN budesonide 90 mcg/actuation (Pulmicort Flexhaler) 1 inh inhalation BID fluticasone propionate 250 mcg/actuation 1 inh inhalation BID methylprednisolone (Medrol (Jr)) PO PER PKG DIR Ventolin HFA 90 mcg/actuation (albuterol sulfate) 2 puffs inhalation Q6H PRN 30 days NS Tobacco use date assessed: 12/19/24 Dental Screening Dental Screen Date: 12/19/24 Did you have a dental visit in the last 12 months?: No Did you have a dental problem in the last 6 months where you did not have access to dental care?: No Was dental information given to patient?: Patient has dentist HPI blocked ears HPI Details The patient is a 54-year-old male who is presenting with complaints of blocked ears Patient reports that about a month and a half ago his right ear felt blocked Reports that he feels like there is something in his ears and it feels like his hearing is decreased Patient reports a history of nasal congestion and allergy issues He denies shortness of breath, sinus pressure, sore throat, muscle aches, fever or chills or headaches On exam: Right TM is bulge and erythematous, small amount of yellowish secretion and the base of ear canal Left TM normal-appearing with small amount of dried up light brown cerumen [facility] Medical History Morbid obesity Super obesity Nephrolithiasis Bronchitis Obesity Family History Mother No problems noted. Father Heart attack Social History Household Members: Spouse and Children Housing: House Do you presently have visiting nurse or other home services: No Alcohol intake: never Patient Tobacco Use Status: Never used Tobacco e-Cigarette/Vaping Use: Never Used Second Hand Smoke Exposure: Yes service: No Current occupational status: employed and disabled Cognitive needs: No Hearing needs: No Vision needs: Yes (Glasses) Questionnaire PHQ-9 Over the last 2 weeks, how often have you been bothered by any of the following problems? 1. Little interest or pleasure in doing things: not at all 2. Feeling down, depressed, or hopeless: not at all 3. Trouble falling or staying asleep, or sleeping too much: not at all 4. Feeling tired or having little energy: not at all 5. Poor appetite or overeating: not at all 6. Feeling bad about yourself - or that you are a failure or have let yourself or your family down: not at all 7. Trouble concentrating on things, such as reading the newspaper or watching television: not at all 8. Moving or speaking so slowly that other people could have noticed. Or the opposite - being so fidgety or restless that you have been moving around a lot more than usual: not at all 9. Thoughts that you would be better off or of hurting yourself in some way: not at all Total score: 0 Depression Screening Interpretation: Negative Depression Screening Done: Yes Source: Developed by Drs. Vimal Santos, Rina Sibley, Pako Gee and colleagues, with an educational flako from [employer]. Thrive Questionnaire Date Thrive assessed: 12/19/24 I am a: Patient What is your living situation today?: I have a steady place to live Within the past 12 months, did the food you bought not last and you didn't have the money to get more?: Never true Within the past 12 months, did you worry whether your food would run out before you got money to buy more?: Never true Do you have trouble paying for medicines?: No Do you have trouble getting transportation to medical appointments?: No Do you have trouble paying your heating and electricity bill?: No Do you have trouble taking care of your child, family member or friend?: No Do you have trouble with day-to-day activities such as bathing, preparing meals, shopping, managing finances, etc.?: No Are you currently unemployed and looking for a job?: No Are you interested in more education?: No Please select the resources that you would like help with: None Currently or been in a relationship where the following occur: No concerns reported THRIVE Score: 0 AUDIT C Alcohol Use Questionnaire (AUDIT-C) 1. How often do you have a drink containing alcohol?: Never 3. How often do you have six or more drinks on one occasion?: Never Total Score: 0 SHRUTHI-7 AMB Questionnaire SHRUTHI-7 Date SHRUTHI - 7 assessed: 12/19/24 Feeling nervous, anxious, or on edge: 0 = Not at all Not being able to stop or control worryin = Not at all Worrying too much about different things: 0 = Not at all Trouble relaxin = Not at all Being so restless that it is hard to sit still: 0 = Not at all Becoming easily annoyed or irritable: 0 = Not at all Feeling afraid as if something awful might happen: 0 = Not at all Total SHRUTHI-7 score (0-4 normal; 5-9 mild; 10-14 moderate; 15-21 severe): 0 Source: Developed by Drs. Vimal Santos, Rina Sibley, Pako Gee and colleagues, with an educational flako from [employer]. Review of Systems ENT Reports hearing loss (decrease hearing in right ear), Reports nasal congestion (ongoing, hx of allergic rhinitis) and Denies sore throat Card Denies chest pain, Denies leg edema and Denies lightheadedness Resp Denies cough and Denies hemoptysis GI Denies abdominal pain, Denies melena, Denies constipation, Denies diarrhea and Denies vomiting Physical exam (Primary Care) Vital Signs: Last Vital Signs Pulse 100 12/19/24 10:22 BP 118/78 12/19/24 10:22 Pulse Ox 95 12/19/24 10:22 Oxygen Delivery Method Room Air 12/19/24 10:22 BMI result Body Mass Index 66.5 Tobacco/Smoking Status: Tobacco use Status Tobacco use date assessed 12/19/24 12/19/24 10:30 Patient Tobacco Use Status Never used Tobacco 12/19/24 10:30 e-Cigarette/Vaping Use Never Used 12/19/24 10:30 PHQ-9: PHQ-9 Score PHQ-9: Total score 0 12/19/24 10:43 Depression Screening Interpretation: Negative Thrive Assessment: Date of Thrive Assessment Date Thrive assessed 12/19/24 12/19/24 10:30 Currently or been in a relationship where the following occur: No concerns reported Const General: healthy appearing, no acute distress, alert and awake Nutritional Appearance: well nourished HENNE Ears: TM normal on the left and TM abnormal bulging and erythematous General nose exam: Abnormal mucous membranes and turbinates present Face and sinus: Yes erythema Eyes General: appearance normal, both eyes and all related structures Conjunctivae: conjunctivae normal Sclerae: sclerae normal Neck Neck: Yes no lymphadenopathy and Yes no JVD Thyroid: Thyroid normal Carotids: no bruits Resp Effort & Inspection: normal respiratory effort and not tachypneic Auscultation: no crackles, no rales, no rhonchi and no wheezes Cardio Rate: regular rate Rhythm: regular rhythm Heart sounds: no murmurs and normal S1 and S2 GI Palpation (GI): Soft to palpation, nontender, no hepatomegaly and no s plenomegaly Auscultation: normal bowel sounds Coding Level of Care Code Est Pt Level 3 (00709) Diagnoses Acute otitis media, unspecified otitis media type H66.90 Otitis media type: unspecified Chronicity: acute Allergic rhinitis, unspecified seasonality, unspecified trigger J30.9 Allergic rhinitis trigger: unspecified Allergic rhinitis seasonality: unspecified Time Spent (min) 28 Assessment & Plan Assessment & Plan (1) Otitis media: Code(s): H66.90 - Otitis media, unspecified, unspecified ear Category: Medical Qualifiers: Otitis media type: unspecified Chronicity: acute Qualified Code(s): H66.90 - Otitis media, unspecified, unspecified ear Plan: Augmentin b.i.d. times 10 days (2) Allergic rhinitis: Code(s): J30.9 - Allergic rhinitis, unspecified Category: Medical Qualifiers: Allergic rhinitis trigger: unspecified Allergic rhinitis seasonality: unspecified Qualified Code(s): J30.9 - Allergic rhinitis, unspecified Plan: Sodium chloride 0.65% 1 spray intranasal TID PRN Medications: New amoxicillin-pot clavulanate 875-125 mg 1 tab PO BID 10 days 20 tabs 0RF H66.90 - Otitis media, unspecified, unspecified ear sodium chloride 0.65% ([place] Saline) 1 spray intranasal TID PRN 50 mL 3RF nasal congestion J30.9 - Allergic rhinitis, unspecified
== END 2024-12-19 11:00 | disposition home or self-care (01) ==
PROVIDERS: PCP Internal Medicine
DX: H66.90 Otitis media, unspecified, unspecified ear (principal); J30.9 Allergic rhinitis, unspecified

== ENCOUNTER → 2024-12-19 10:17 | Outpatient (BNVA) | payer OTHER, SELFPAY | PROVIDERS: PCP Internal Medicine | DX: H66.90 Otitis media, unspecified, unspecified ear (principal); J30.9 Allergic rhinitis, unspecified | CPT/HCPCS: 99212 ==

== ENCOUNTER 2025-01-27 13:17 | Inpatient (IN) | payer OTHER, SELFPAY ==
[2025-01-27] VITALS (12 sets, daily range): BP systolic 114–160; BP diastolic 68–91; PULSE 78–111; RESP 14–22; TEMP 36.3–37.5; O2SAT 94–98; BMI 65.5; BMI 65.1
--- NOTE | ~2025-01-27 | CT_ITS ---
EXAMINATION: CT ABDOMEN PELVIS WITH IV CONTRAST HISTORY: Periumbilical pain. Appendicitis?, hernia? COMPARISON: Comparison is made with the prior examination dated 10/23/2017. TECHNIQUE: CT scan of the abdomen and pelvis was performed following administration of 85 mL Omnipaque 350 using standard departmental protocol. Coronal and sagittal reformatted images were generated and reviewed. Oral contrast material was not administered at the request of the referring physician. This CT exam was performed with one or more of the following dose reduction techniques: automated exposure control, adjustment of the mA and/or kV according to patient size, use of iterative reconstruction technique. DLP: 1609 mGy-cm FINDINGS: LOWER CHEST: Again seen is an ovoid 9 mm nodule at the right lung base. The visualized left lung base clear. There is no pleural effusion. CARDIOVASCULATURE: The heart is normal in size. There is no pericardial effusion. LIVER: The liver is normal in size and contour, but demonstrates diffusely decreased attenuation, consistent with steatosis. There is focal fatty sparing adjacent to the gallbladder.. No liver mass is identified. The hepatic and portal veins are patent. GALLBLADDER / BILE DUCTS: The gallbladder is unremarkable. There is no intra or extrahepatic biliary ductal dilatation. SPLEEN: The spleen is normal in size. No focal splenic lesion is identified. PANCREAS: The pancreas is unremarkable in appearance. ADRENAL GLANDS: Within normal limits. KIDNEYS/RETROPERITONEUM: There is a punctate nonobstructing calculus at the lower pole of the right kidney and a punctate nonobstructing calculus at the upper pole of the left kidney.. There is no hydronephrosis. No renal masses are identified. LYMPH NODES: There is a 2.9 cm cyst in the interpolar region of the left kidney. VASCULATURE: The abdominal aorta is normal in caliber. MESENTERY/PERITONEUM: No free fluid. No masses. There is no free intraperitoneal gas. STOMACH: The stomach is unremarkable. SMALL BOWEL: There is dilatation of fluid-filled small bowel loops to the level of an umbilical hernia. The defect loops are collapsed. Findings are consistent with obstruction. There is infiltration of the fat in the hernia suggestive of incarceration. COLON: The colon is unremarkable. APPENDIX: Normal. URINARY BLADDER/PELVIC ORGANS: The urinary bladder is collapsed, limiting evaluation. The prostate is normal in size. BONES / SOFT TISSUES: The bones are intact. CT/CT abdomen pelvis w IV con IMPRESSION: Findings consistent with small bowel obstruction secondary to a likely incarcerated umbilical hernia. Electronically signed by: Vimal Emmanuel MD 01/27/2025 03:33 PM EDT
[2025-01-27] MEDS: Ketorolac Tromethamine 30 MG/ML VIAL IVPUSH (13:40)
[2025-01-27 13:48] LABS: MANUAL DIFF FLAG NO
[2025-01-27 13:52] LABS: Basophils Percent Auto 0.2 % (0-2); Eosinophils Absolute Auto 0.1 X10*3/uL (0.0-0.4); Eosinophils Percent Auto 0.7 % (0-4); Hematocrit 43.2 % (42.0-52.0); Hemoglobin 14.3 g/dl (14.0-18.0); Imm Gran Abs Auto 0.05 X10*3/uL (0.00-0.03); Imm Gran Pct Auto 0.5 % (0.0-0.4); Lymphocytes Percent Auto 10.1 % (20-40); Mean Corpuscular HGB Conc 33.1 g/dl (31.0-36.0); Mean Corpuscular Volume 84.5 fL (80.0-98.0); Mean Platelet Volume 9.8 fL (9.4-12.4); Monocytes Absolute Auto 0.6 X10*3/uL (0.1-1.2); Neutrophils Percent Auto 82.5 % (45-73); Platelet Count 304 X10*3/uL (160-400); Red Blood Count 5.11 X10*6/uL (4.60-5.80); Red Cell Distribution Width 13.1 % (11.0-16.0); White Blood Count 9.7 X10*3/uL (4.8-10.8)
[2025-01-27 14:16] LABS: Alanine Aminotransferase 27 U/L (0-40); Albumin Level 3.5 g/dL (3.5-5.0); Anion Gap 14 (12-20); Aspartate Amino Transferase 34 U/L (5-37); Bilirubin Total 1.1 mg/dL (0.0-1.0); Blood Urea Nitrogen 17 mg/dL (9-16); Calcium 9.7 mg/dL (8.4-10.2); Carbon Dioxide 25 mmol/L (22-29); Chloride 102 mmol/L (96-108); Creatinine Clr Calc Pharmacy 163.4; Estimated Glomerular Filt Rate > 60; Glucose Random 183 mg/dL (60-115); Lipase 51 U/L (8-78); Potassium 4.2 mmol/L (3.3-5.1); Sodium 137 mmol/L (135-145); Total Protein 8.6 g/dL (6.5-8.0)
[2025-01-27] MEDS: 0.9 % Sodium Chloride 1,000 ML 999 ML IV ×2 (14:43)
[2025-01-27] MEDS: Midazolam HCl 2 MG/2 ML VIAL 4 MG IVPUSH (14:49)
[2025-01-27] MEDS: iohexoL 350 MG/ML 100 ML INFUS..BTL IV (15:21)
--- NOTE | 2025-01-27 16:19 | ED.GENADULT ---
HPI - General Adult General Chief complaint: Abdominal Pain Stated complaint: Lower abdominal pain, vomitting per ems Time Seen by Provider: 01/27/25 13:38 Source: patient Mode of arrival: ambulatory Limitations: no limitations History of Present Illness ED Provider: Faizan Martínez HPI narrative: 54 yold male with pmh of kidney stones presents to the ED for periumbilical abdominal sinnce last night. Patient states nausea and vomiting. Patient denies any genitourinary symptoms, flank pain, fever, or chills. Patient denies any decreased appetite. Related Data Previous Rx's ?Medication ?Instructions ?Recorded albuterol sulfate 90 mcg/actuation 2 puff inhalation Q4-6H PRN muscle 01/11/25 aerosol inhaler spasm 30 days #8.5 grams Allergies Allergy/AdvReac Type Severity Reaction Status Date / Time acetaminophen [Vicodin] Allergy Severe shortness Verified 01/27/25 13:28 of breath hydrocodone [Vicodin] Allergy Severe shortness Verified 01/27/25 13:28 of breath hydromorphone [From Dilaudid] Allergy Severe UNKNOWN, Verified 01/27/25 13:28 Tongue swelling morphine Allergy Unknown Verified 01/27/25 13:29 From VICODIN Allergy Severe ANAPHYLAXIS Uncoded 01/27/25 13:28 Hydrocodone-Acetaminophen Allergy Severe itchiness Uncoded 01/27/25 13:28 SEASONAL ALLERGIES Allergy Severe Wheezing Uncoded 01/27/25 13:28 Review of Systems Review of Systems: Periumbilical abdominal pain Yes all other systems are reviewed and are negative PMFSH Past Medical History Medical History (Updated 01/28/25 @ 08:20 by Narciso Wright MD) Small bowel obstruction Morbid obesity Super obesity Nephrolithiasis Bronchitis Obesity Surgical History (Updated 01/28/25 @ 08:19 by Narciso Wright MD) S/P recurrent ventral herniorrhaphy (01/27/25) Family History Family History Mother No problems noted. Father Heart attack Social History Social History Household Members: Spouse Housing: House Do you presently have visiting nurse or other home services: No Alcohol intake: former Comment: unknown room Patient Tobacco Use Status: Never used Tobacco e-Cigarette/Vaping Use: Never Used Second Hand Smoke Exposure: Yes Advance Directives Date on File: 01/27/25 service: No Current occupational status: employed and disabled Cognitive needs: No Hearing needs: No Vision needs: Yes (Glasses) Physical Exam ED Vital Signs: Vital Signs - 24 hr 01/27/25 13:24 01/27/25 14:45 Temperature 98.2 F 98.5 F Pulse Rate 110 H 91 Respiratory Rate 18 14 Blood Pressure 114/74 117/69 Pulse Oximetry 97 94 Oxygen Delivery Method Room Air Room Air BMI result Body Mass Index 65.5 Const Orientation/consciousness: patient oriented x3 HENMT Head: Yes normal to inspection, Yes No palpable skull fracture present, Yes normocephalic, Yes atraumatic and No abrasion Eyes General: appearance normal, both eyes and all related structures Neck Neck: Yes normal visual inspection, Yes full ROM, Yes no lymphadenopathy, Yes no meningeal signs, Yes trachea midline, Yes supple, No anterior neck swelling and No tender Chest Chest palpation & inspection: normal inspection of the chest and normal palpation of entire chest wall Resp Effort & Inspection: normal respiratory effort and able to speak in complete sentences Auscultation: clear to auscultation bilaterally Cardio Jugular venous distension: no JVD Heart sounds: S1 normal heart sound present and S2 normal heart sound present GI Inspection: Yes normal to inspection Palpation (GI): Tenderness to palpation present (GI) periumbilically (Medium size hard palable mass/tender) General: Yes no CVA tenderness Back/Spine/Pelvis Back: no CVA tenderness and No back tenderness Skin General skin exam: no rashes or lesions noted, elasticity normal and turgor normal Neuro General: patient oriented x3, gait normal, tone normal, moves all extremities, Normal light touch and pain sensation, no meningeal signs, no focal motor deficits, CN's II-XI intact bilaterally and normal sensation to monofilament Extrem General: Yes normal to inspection, Yes full ROM and Yes capillary refill normal Psych Appearance: grossly normal, well kempt and not disheveled Medications Administered Discontinued Medications Generic Name Dose Route Start Last Admin Trade Name Freq PRN Reason Stop Dose Admin Heparin Sodium (Porcine) 5,000 unit 01/27/25 17:00 01/29/25 05:52 Heparin Sodium,Porcine 5,000 Unit/Ml Vial SUBCUT 5,000 unit Q12H AUGUST Administration Sodium Chloride 1,000 mls @ 999 mls/hr 01/27/25 14:19 01/27/25 16:18 Ns IV 01/27/25 15:19 Infused .Q1H1M STA Infusion Sodium Chloride 1,000 mls @ 999 mls/hr 01/27/25 14:20 01/27/25 16:18 Ns IV 01/27/25 15:20 Infused .Q1H1M STA Infusion Acetaminophen 1,000 mg in 100 mls @ 400 mls/hr 01/27/25 16:43 01/27/25 17:08 Ofirmev IV 01/27/25 16:57 Infused ONCE ONE Infusion Dextrose/Lactated Ringer's 1,000 mls @ 125 mls/hr 01/27/25 16:45 01/28/25 14:16 D5lr IVCONT Infused .Q8H AUGUST Infusion Piperacillin Sod/Tazobactam 50 mls @ 100 mls/hr 01/27/25 16:45 01/29/25 06:25 Sod 3.375 gm/ Sodium Chloride IV Infused Q6H AUGUST Infusion Acetaminophen 1,000 mg in 100 mls @ 400 mls/hr 01/27/25 23:00 01/29/25 09:31 Ofirmev IV Infused Q6H PRN Infusion Pain, Mild (Pain Scale 1-3) Iohexol 100 ml 01/27/25 15:21 01/27/25 15:21 Iohexol 350 Mg/Ml 100 Ml Infus..Btl IV 01/27/25 15:22 100 ml ONCE ONE Administration Ketorolac Tromethamine 30 mg 01/27/25 13:38 01/27/25 13:40 Ketorolac Tromethamine 30 Mg/Ml Vial IVPUSH 01/27/25 13:39 30 mg ONCE ONE Administration Ketorolac Tromethamine 15 mg 01/27/25 22:44 01/29/25 05:54 Ketorolac Tromethamine 15 Mg/Ml Vial IVPUSH 15 mg Q6H PRN Administration Pain, Severe (Pain Scale 7-10) Lorazepam 0.5 mg 01/27/25 22:44 01/28/25 23:11 Lorazepam 0.5 Mg Tablet PO 0.5 mg Q8H PRN Administration Anxiety Midazolam HCl 4 mg 01/27/25 14:19 01/27/25 14:49 Midazolam Hcl 2 Mg/2 Ml Vial IVPUSH 01/27/25 14:20 4 mg ONCE ONE Administration Sodium Chloride 3 ml 01/28/25 00:00 01/29/25 09:14 0.9 % Sodium Chloride Flush 3 Ml Syringe IVFLUSH 3 ml QSHIFT AUGUST Administration Medical Decision Making Medical Decision Making [facility] Narrative: 54-year-old male presents to ED for significant periumbilical abdominal pain since yesterday with nausea vomiting. Pain is worse on movement. Pain started after lifting heavy patient and bags. Patient is sent for CT scan to rule out incarcerated hernia. Patient given Toradol and Versed 4:30pm: Case was discussed with Dr. Wright of surgery and CAT scan results of incarcerated hernia with small bowel obstruction. Recommend attempt at reduction of periumbilical hernia. I attempted periumbilical hernia. After reduction significant decrease in size of periumbilical mass and decrease in firmness. Significantly less tender. Dr. Wright states he will admit patient. Differential Diagnosis Differential Diagnoses: The differential diagnosis associated with the presentation includes (Incarcerated hernia, appendicitis, UTI, kidney) Admission/Observation Consideration of admission/observation: Escalation of care including admission/observation considered Lab Data [facility] Lab Attestation statement: I reviewed the patient's lab results. 01/27/25 13:43 01/27/25 13:43 Labs: Lab Results 01/27/25 Range/Units 13:43 WBC 9.7 (4.8-10.8) X10*3/uL RBC 5.11 (4.60-5.80) X10*6/uL Hgb 14.3 (14.0-18.0) g/dl Hct 43.2 (42.0-52.0) % MCV 84.5 (80.0-98.0) fL MCH 28.0 (27.0-33.0) pg MCHC 33.1 (31.0-36.0) g/dl RDW 13.1 (11.0-16.0) % Plt Count 304 (160-400) X10*3/uL MPV 9.8 (9.4-12.4) fL Immature Gran % (Auto) 0.5 H (0.0-0.4) % Neut % (Auto) 82.5 H (45-73) % Lymph % (Auto) 10.1 L (20-40) % [place] % (Auto) 6.0 (2-11) % Eos % (Auto) 0.7 (0-4) % Baso % (Auto) 0.2 (0-2) % Lymph # (Auto) 1.0 L (1.2-4.9) X10*3/uL [place] # (Auto) 0.6 (0.1-1.2) X10*3/uL Eos # (Auto) 0.1 (0.0-0.4) X10*3/uL Baso # (Auto) 0.0 (0.0-0.2) X10*3/uL Abs Immat Gran (auto) 0.05 H (0.00-0.03) X10*3/uL Absolute Neuts (auto) 8.0 (2.0-8.3) x10*3/uL Absolute Nucleated RBC 0.000 (0.0-0.012) X10*3/uL Nucleated RBC % (auto) 0.0 (0.0-0.2) /100WBC Hold Purple Top SEE NOTE Sodium 137 (135-145) mmol/L Potassium 4.2 (3.3-5.1) mmol/L Chloride 102 (96-108) mmol/L Carbon Dioxide 25 (22-29) mmol/L Anion Gap 14 (12-20) BUN 17 H (9-16) mg/dL Creatinine 0.74 (0.5-1.4) mg/dL Estim Creat Clear Calc 163.4 Estimated GFR > 60 Random Glucose 183 H (60-115) mg/dL Calcium 9.7 D (8.4-10.2) mg/dL Total Bilirubin 1.1 H (0.0-1.0) mg/dL AST 34 (5-37) U/L ALT 27 (0-40) U/L Alkaline Phosphatase 72 (39-117) U/L Total Protein 8.6 H (6.5-8.0) g/dL Albumin 3.5 (3.5-5.0) g/dL Lipase 51 (8-78) U/L Independent Interpretation I performed an independent interpretation of an: CT Scan Radiology Impression Discussion of test interpretation with radiology: I have reviewed the radiologist's reading. Independent Historian Clinical information obtained from an independent historian. History obtained from or confirmed by: Spouse () and Other (Patient is) Discharge Plan Discharge Clinical Impression: Hernia Patient Disposition: Admitted As Inpatient Interventions: Admission Worksheet (ED) Last Done: 01/27/25 20:10 Discharge Date/Time: 01/27/25 20:12
--- NOTE | 2025-01-27 16:21 | PC.NURSE ---
Alert and oriented, reporting abdominal pain that started yesterday around 10am and has progressively gotten worse. Report hx of kidney stones but this pain feels like it is more in the middle of his abdomen. Epigastric area firm and tender to touch. Medicated per mar with improvement in pain. Medicated with valium for CT. and daughter at bedside, Faizan BARGER into room to review CT results with patient and family.
[2025-01-27] MEDS: Acetaminophen 1,000 MG/100 ML PIGGYBACK 400 MG IV (16:47)
[2025-01-27] MEDS: Piperacillin Sodium/Tazobactam 3.375 GM in 0.9 % Sodium Chloride 50 ML IV ×2 (17:11→23:02)
[2025-01-27 17:33] LABS: Appearance Urine Clear; Color Urine Dark Yellow; Glucose Urine UA Negative (Negative); Leukocyte Esterase Urine Negative (Negative); Nitrite Urine Negative (Negative); Specific Gravity - Urine >= 1.030 (1.005-1.025); UMIC TRIGGER UACC YES; Urine Blood Negative (Negative); Urine Ketones 15 mg/dL (Negative); Urine Protein 100 (2+) mg/dL (Neg-Trace)
[2025-01-27] MEDS: Heparin Sodium,Porcine 5,000 UNIT/ML VIAL 5000 UNIT SUBCUT (17:53)
[2025-01-27] MEDS: Dextrose 5 % and Lactated Ring 1,000 ML 125 ML IVCONT ×2 (17:54→23:02)
[2025-01-27 18:10] LABS: Bacteria Urine None Seen (None Seen); Granular Casts Urine Present; Squamous Epithelial Cell Urine 0-2 /HPF (0-2); WBC Urine 0-5 /HPF (0-5)
--- NOTE | 2025-01-27 18:28 | PHA.MEDREC ---
Addendum entered by Juan Daniel Norris 01/27/25 18:36: reviewed Original Note: Pharmacy Consult ? Medication Reconciliation Pharmacy has completed the medication reconciliation. spoke to patient and family at bedside to confirm med list. family states patient only uses Albuterol inhaler.
--- NOTE | 2025-01-27 18:28 | PC.NURSE ---
Patient reporting pain in abdomen, provider aware, ordered tylenol but patient last medicated with tylenol 2 hours ago, provider aware
[2025-01-27 18:42] LABS: Alkaline Phosphatase 72 U/L (39-117)
--- NOTE | 2025-01-27 19:06 | P.HPGS_ITS ---
History of Present Illness History of Present Illness Date of Service: 01/27/25 Chief complaint: SBO, Umbilical hernia Narrative: Chuck Narvaez is a 54 year old male presenting with complaints of abdominal pain in the upper abdomen. 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 Later he began lifting laundry at home and noted increased pain and swelling in the upper abdomen. He was brought to the ED by EMS and developed some nausea and vomiting on transport. He denies a previous history of abdominal wall hernia or of abdominal wall surgery. He does have a history of kidney stones in his undergone several lithotripsies. He denies any abdominal surgeries. In the emergency department he was noted to be tender in the upper abdomen above the umbilicus with a tender lump. CT abdomen and pelvis revealed a ventral hernia with incarcerated loop of small bowel with evidence of obstruction and inflammation. He was admitted to the surgical service for further management. Review of Systems 2 Review of Systems: Yes all other systems are reviewed and are negative Constitutional: Constitutional: Denies chills, Denies fatigue, Denies fever(s) and Reports poor appetite Gastrointestinal: Gastrointestinal: Reports abdominal pain, Reports bloating, Denies diarrhea, Reports nausea and Reports vomiting Endocrine: Endocrine: Denies fatigue PMFSH Past Medical History Medical History Morbid obesity Super obesity Nephrolithiasis Bronchitis Obesity Family History Family History Mother No problems noted. Father Heart attack Social History Social History Household Members: Spouse and Children Housing: House Do you presently have visiting nurse or other home services: No Alcohol intake: former Patient Tobacco Use Status: Never used Tobacco Smoked in Last 30 Days: No e-Cigarette/Vaping Use: Never Used Second Hand Smoke Exposure: Yes Use of substances other than those prescribed or required for medical reasons: No Advance Directives: Yes Advance Directives Information Provided: Yes Advance Directives on File: No service: No Current occupational status: employed and disabled Cognitive needs: No Hearing needs: No Vision needs: Yes (Glasses) Meds Allergies Allergy/AdvReac Type Severity Reaction Status Date / Time acetaminophen [Vicodin] Allergy Severe shortness Verified 01/27/25 13:28 of breath hydrocodone [Vicodin] Allergy Severe shortness Verified 01/27/25 13:28 of breath hydromorphone [From Dilaudid] Allergy Severe UNKNOWN, Verified 01/27/25 13:28 Tongue swelling morphine Allergy Unknown Verified 01/27/25 13:29 From VICODIN Allergy Severe ANAPHYLAXIS Uncoded 01/27/25 13:28 Hydrocodone-Acetaminophen Allergy Severe itchiness Uncoded 01/27/25 13:28 SEASONAL ALLERGIES Allergy Severe Wheezing Uncoded 01/27/25 13:28 Active Medications: Current Medications Calcium Carbonate (Calcium Carbonate 750 Mg Tab.Chew) 750 mg PO Q4H PRN PRN Reason: Heartburn Heparin Sodium (Porcine) (Heparin Sodium,Porcine 5,000 Unit/Ml Vial) 5,000 unit SUBCUT Q12H [facility] Last Admin: 01/27/25 17:53 Dose: 5,000 unit Dextrose/Lactated Ringer's (D5lr) 1,000 mls @ 125 mls/hr IVCONT .Q8H [facility] Last Admin: 01/27/25 17:54 Dose: 125 mls/hr Piperacillin Sod/Tazobactam (Sod 3.375 gm/ Sodium Chloride) 50 mls @ 100 mls/hr IV Q6H [facility] Last Infusion: 01/27/25 17:51 Dose: Infused Acetaminophen (Ofirmev) 1,000 mg in 100 mls @ 400 mls/hr IV Q6H PRN PRN Reason: Pain, Mild (Pain Scale 1-3) Magnesium Hydroxide (Milk Of Magnesia 30 Ml Oral.Susp) 30 ml PO DAILY PRN PRN Reason: Constipation Melatonin (Melatonin 3 Mg Tablet) 6 mg PO BEDTIME PRN PRN Reason: Insomnia Ondansetron HCl (Ondansetron Hcl 4 Mg/2 Ml Vial) 4 mg IVPUSH QID PRN PRN Reason: Nausea Sodium Chloride (0.9 % Sodium Chloride Flush 3 Ml Syringe) 3 ml IVFLUSH QSHIFT [facility] Physical Exam 2 Vital Signs: Vital Signs: Last Vital Signs Temp 98.5 F 01/27/25 14:45 Pulse 78 01/27/25 18:20 Resp 20 01/27/25 18:20 BP 129/80 01/27/25 18:20 Pulse Ox 97 04/18/25 18:20 O2 Del Method Room Air 01/27/25 18:20 BMI result Body Mass Index 65.5 Const: General: cooperative and no acute distress Nutritional Appearance: w ell nourished and obese morbidly obese Orientation/consciousness: patient oriented x3 Limitations: no limitations HEENT: Head: Yes normocephalic and Yes atraumatic Ears: hearing grossly normal bilaterally Resp: Effort & Inspection: normal respiratory effort, no audible wheezes, no cough and no respiratory distress Cardio: Jugular venous distension: no JVD GI: Inspection: Yes normal to inspection, No incision and Yes obesity P alpation (GI): Soft to palpation, Tenderness to palpation present (GI) periumbilically and Hernia present (Tender to palpation, non reducible) ventral Abdomen image: 1. Site of hernia upper abdominal wall at least 6 cm diameter Skin: Other: Warm, dry, no rash Neuro: General: patient oriented x3 Extrem: General: Yes no clubbing, cyanosis or edema Results Results Labs: Short CBC 01/27/25 Range/Units 13:43 WBC 9.7 (4.8-10.8) X10*3/uL Hgb 14.3 (14.0-18.0) g/dl Hct 43.2 (42.0-52.0) % Plt Count 304 (160-400) X10*3/uL BMP 01/27/25 13:43 Sodium 137 Potassium 4.2 Chloride 102 Carbon Dioxide 25 BUN 17 H Creatinine 0.74 Calcium 9.7 D Liver Function 01/27/25 Range/Units 13:43 Total Bilirubin 1.1 H (0.0-1.0) mg/dL AST 34 (5-37) U/L ALT 27 (0-40) U/L Alkaline Phosphatase 72 (39-117) U/L Albumin 3.5 (3.5-5.0) g/dL Urine 01/27/25 Range/Units 17:25 Urine Color Dark Yellow Urine Appearance Clear Urine pH 6.0 (5.0-9.0) Ur Specific [place] >= 1.030 H (1.005-1.025) Urine Protein 100 (2+) H (Neg-Trace) mg/dL Urine Glucose (UA) Negative (Negative) mg/dL Abdomen CT scan report/results: image reviewed CT scan - pelvis: image reviewed Assessment and Plan (1) Super obesity: Status: Acute (2) Incarcerated ventral hernia: Status: Acute Plan 54-year-old male patient presenting with a new onset incarcerated ventral hernia with evidence of bowel obstruction. Patient was having increased pain but is unable to take most pain medications due to allergies. On examination the patient has a tender non reducible ventral hernia. I recommended repair of this ventral hernia tonight with mesh. After a discussion of the procedure, risks, and alternatives, he consents to a repair of the incarcerated ventral hernia with mesh. He has been added onto the operative schedule for today. Quality Stroke Does the patient have a stroke diagnosis?: No VTE Prior VTE?: Yes VTE Risk Level:: Surgical - moderate VTE Device Contraindication: N/A - Device Ordered VTE Drug Contraindication: N/A - Med Ordered Procedures Date of Service Date of Service: 01/27/25
--- NOTE | 2025-01-27 20:05 | P.CONAN_ITS ---
HPI - Anesthesia Eval Consult details Narrative: Incarcerated ventral hernia PMFSH Active Problems Active Problems: All Active Problems Incarcerated ventral hernia (Acute) Allergic rhinitis (Acute) Otitis media (Acute) Walking pneumonia (Acute) Pulmonary embolism (Acute) Morbid obesity (Acute) Knee pain (Acute) Reactive airway disease (Acute) Paraspinal muscle spasm (Acute) Super obesity (Acute) Asthma with exacerbation (Acute) Bronchitis (Acute) Past Medical History Medical History Morbid obesity Super obesity Nephrolithiasis Bronchitis Obesity Family History Family History Mother No problems noted. Father Heart attack Family history of problems with anesthesia: No Surgical History History of Problems with Anesthesia: No Social History Social History Household Members: Spouse and Children Housing: House Do you presently have visiting nurse or other home services: No Alcohol intake: former Patient Tobacco Use Status: Never used Tobacco Smoked in Last 30 Days: No e-Cigarette/Vaping Use: Never Used Second Hand Smoke Exposure: Yes Use of substances other than those prescribed or required for medical reasons: No Advance Directives: Yes Advance Directives Information Provided: Yes Advance Directives on File: No service: No Current occupational status: employed and disabled Cognitive needs: No Hearing needs: No Vision needs: Yes (Glasses) Meds Allergies Allergy/AdvReac Type Severity Reaction Status Date / Time acetaminophen [Vicodin] Allergy Severe shortness Verified 01/27/25 13:28 of breath hydrocodone [Vicodin] Allergy Severe shortness Verified 01/27/25 13:28 of breath hydromorphone [From Dilaudid] Allergy Severe UNKNOWN, Verified 01/27/25 13:28 Tongue swelling morphine Allergy Unknown Verified 01/27/25 13:29 From VICODIN Allergy Severe ANAPHYLAXIS Uncoded 01/27/25 13:28 Hydrocodone-Acetaminophen Allergy Severe itchiness Uncoded 01/27/25 13:28 SEASONAL ALLERGIES Allergy Severe Wheezing Uncoded 01/27/25 13:28 Active Medications: Current Medications Calcium Carbonate (Calcium Carbonate 750 Mg Tab.Chew) 750 mg PO Q4H PRN PRN Reason: Heartburn Heparin Sodium (Porcine) (Heparin Sodium,Porcine 5,000 Unit/Ml Vial) 5,000 unit SUBCUT Q12H [facility] Last Admin: 01/27/25 17:53 Dose: 5,000 unit Dextrose/Lactated Ringer's (D5lr) 1,000 mls @ 125 mls/hr IVCONT .Q8H [facility] Last Admin: 01/27/25 17:54 Dose: 125 mls/hr Piperacillin Sod/Tazobactam (Sod 3.375 gm/ Sodium Chloride) 50 mls @ 100 mls/hr IV Q6H [facility] Last Infusion: 01/27/25 17:51 Dose: Infused Acetaminophen (Ofirmev) 1,000 mg in 100 mls @ 400 mls/hr IV Q6H PRN PRN Reason: Pain, Mild (Pain Scale 1-3) Magnesium Hydroxide (Milk Of Magnesia 30 Ml Oral.Susp) 30 ml PO DAILY PRN PRN Reason: Constipation Melatonin (Melatonin 3 Mg Tablet) 6 mg PO BEDTIME PRN PRN Reason: Insomnia Ondansetron HCl (Ondansetron Hcl 4 Mg/2 Ml Vial) 4 mg IVPUSH QID PRN PRN Reason: Nausea Sodium Chloride (0.9 % Sodium Chloride Flush 3 Ml Syringe) 3 ml IVFLUSH QSHIFT [facility] Exam Height,Weight and Vital Signs: Height 5 ft 3 in Weight 167.829 kg Last Vital Signs Temp 99.5 F 01/27/25 19:27 Pulse 89 01/27/25 19:27 Resp 22 H 01/27/25 19:27 BP 141/91 H 01/27/25 19:27 Pulse Ox 96 01/27/25 19:27 O2 Del Method Room Air 01/27/25 19:27 Pertinent Lab Results Pertinent Lab Results: Laboratory Tests 01/27/25 01/27/25 13:43 17:25 WBC 9.7 RBC 5.11 Hgb 14.3 Hct 43.2 MCV 84.5 MCH 28.0 MCHC 33.1 RDW 13.1 Plt Count 304 MPV 9.8 Immature Gran % (Auto) 0.5 H Neut % (Auto) 82.5 H Lymph % (Auto) 10.1 L [place] % (Auto) 6.0 Eos % (Auto) 0.7 Baso % (Auto) 0.2 Lymph # (Auto) 1.0 L [place] # (Auto) 0.6 Eos # (Auto) 0.1 Baso # (Auto) 0.0 Abs Immat Gran (auto) 0.05 H Absolute Neuts (auto) 8.0 Absolute Nucleated RBC 0.000 Nucleated RBC % (auto) 0.0 Hold Purple Top SEE NOTE Sodium 137 Potassium 4.2 Chloride 102 Carbon Dioxide 25 Anion Gap 14 BUN 17 H Creatinine 0.74 Estim Creat Clear Calc 163.4 Estimated GFR > 60 Random Glucose 183 H Calcium 9.7 D Total Bilirubin 1.1 H AST 34 ALT 27 Alkaline Phosphatase 72 Total Protein 8.6 H Albumin 3.5 Lipase 51 Urine Color Dark Yellow Urine Appearance Clear Urine pH 6.0 Ur Specific [place] >= 1.030 H Urine Protein 100 (2+) H Urine Glucose (UA) Negative Urine Ketones 15 Urine Blood Negative Urine Nitrite Negative Ur Leukocyte Esterase Negative Urine RBC 6-10 H Urine WBC 0-5 Ur Squamous Epith Cells 0-2 Urine Bacteria None Seen Hyaline Casts 3-5 Granular Casts Present Airway Mallampati Class: II TM Dist: >3cm Neck ROM: Full Loose/Missing/Broken Teeth: No Heart: RRR Lungs: CTA Assessment and Plan Assessment Anesthesia Assessment: Anesthesia Plan Discussed and Chart Reviewed Final Anesthetic Review Family History of Problems with Anesthesia: No History of Problems with Anesthesia: No NPO: Yes ASA Class: III and Emergency Final Preanesthetic Review: No Changes in Pt Med Stat, Meds/Allgs Chart Reviewed, Consent Obtained/Reviewed and Anes Risks/Benef Reviewed Patient Risk: High Procedure Risk: Intermediate Anesthetic Plan Anesthetic Plan: GA Disposition: Standard PACU
--- NOTE | 2025-01-27 21:45 | P.OP_ITS ---
Operative Note Operative Note Date of Service: 01/27/25 Narrative: Preoperative diagnosis: Incarcerated ventral hernia Postoperative diagnosis: Same Procedure: Repair of incarcerated ventral hernia Surgeon: Narciso Wright MD Geographic Information Systems Analyst: None Anesthesia: General endotracheal Indications for procedure: 54-year-old morbidly obese male presenting with a recent onset ventral hernia causing increased abdominal pain, nausea, and vomiting. CT findings were suggestive of incarcerated possibly strangulated ventral hernia Operative findings: Strangulated ventral hernia. Specimen: Hernia sac Estimated blood loss: 5 mL Complications: None Procedure details: Patient was brought to the OR and placed in a supine position. After administering general anesthesia the patient's abdomen was prepped with ChloraPrep and draped in a sterile fashion. A surgical time-out wa s called the consent confirmed. Patient received preoperative antibiotics and Venodyne boots were in place. Local anesthesia was infiltrated in the midline. A midline incision was made just above the umbilicus and carried out through subcutaneous tissue up to the hernia sac. Hernia sac was then entered and the bowel noted to be somewhat dusky in appearance. Dissection was continued down along the hernia sac down to fascial defect. The fascia was then opened to improve blood flow to the bowel. The bowel was noted to pink up immediately. Omentum was also noted within the hernia sac. This was gently reduced into the abdominal cavity. Redundant hernia sac was then dissected free from the surrounding subcutaneous tissue. This was then excised and sent as a specimen. Sac was then dissected down to the fascial defect in the fascial defect further defined using electrocautery. A preperitoneal space was then created using a combination of sharp and blunt dissection. Hemostasis was assured all times using electrocautery. Peritoneum was then closed using a running 0 Polysorb suture. The defect measured approximately 4 cm in diameter. An 8 cm round Phasix mesh was then obtained. This was deployed within the preperitoneal space it is secured in 4 quadrants using a 1 Tycron suture. Additional anchoring sutures were placed between the 4 quadrants as well. The fascia was then closed over the mesh using [id number] 1 Tycron sutures. Before completely closing the fascial defect approximately 4 mL of Zenrelef was instilled below the fascia. Subcutaneous tissue was then reapproximated using interrupted 3-0 Polysorb sutures. Additional 4 mL of Zenrelef was then instilled within the subcutaneous tissue for postoperative pain relief. Dermis was reapproximated using interrupted 3-0 Polysorb sutures. Skin was closed using skin elin. Sterile dressings consisting of 4 x 4 gauze and Tegaderm were then applied. The patient tolerated the procedure well. An abdominal binder was applied upon moving him onto the hospital bed. He was transferred to PACU in stable condition.
[2025-01-27] MEDS: 0.9 % Sodium Chloride Flush 3 ML SYRINGE IVFLUSH (23:03)
[2025-01-27] MEDS: LORazepam 0.5 MG TABLET PO (23:03)
--- NOTE | 2025-01-28 01:31 | HO.PM.IMCN ---
History of Present Illness Data of Consult Service Date: 01/28/25 Requesting physician: Narciso Wright Primary Care Provider: Javier Benoit MD [facility] Reason for consult: Medical management after SBO Patient is a 54-year-old male with past medical history of obesity, MARLYN not on CPAP, anxiety, asthma, and nephrolithiasis is status post is status post repair of incarcerated ventral hernia with Dr. Wright on 01/27/2025. Diagnosis incarcerated possibly strangulated ventral hernia. 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 Later in the evening patient was lifting laundry and then noted increased pain and swelling in the upper abdomen. EMS was notified and patient was taken to the emergency department. Patient underwent a CT of the abdomen and pelvis which revealed a ventral hernia with incarcerated loop of small bowel with evidence of obstruction and inflammation. Patient was taken to the OR the same day and underwent surgical intervention with no complications indicated. Per nursing, patient's sats were 88% on room air as patient was not taking deep breaths status post anesthesia. With nasal cannula pulse ox increased to 94%. Patient does have issues with anxiety and was having increased anxiety with wearing the nasal cannula or something on his face. Upon exam for medical consultation, patient was resting having no discomfort, snoring. Patient provided minimal history regarding past medical history but did explain that overall he has been using his rescue inhaler for his asthma more often. Patient does report history of bronchitis but denies any history of pneumonia. Per nursing patient is able to achieve 2500 mL on his incentive spirometer postoperatively. Pain appears to be well controlled. Patient is not having any nausea or vomiting postoperatively. Patient denies history of diabetes, CAD, pulmonary embolism and DVT, stroke or seizure, thyroid disease, hypertension, hyperlipidemia, thyroid disease, cancer or any surgical intervention prior. Patient does follow with a primary care physician regularly. 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 Patient denies smoking tobacco, vaping, marijuana use, alcohol use or illicit drug use. Patient denies any history of motor vehicle accidents or traumas. Review of Systems Review of Systems: Patient currently denying any chest pain, shortness of breath at rest, abdominal pain, nausea, vomiting. Appetite is slowly returning per patient. Patient denies any lower calf pain or numbness or tingling in the lower extremities. Patient denies any headache, visual changes, loss of hearing or difficulty swallowing. Yes all other systems are reviewed and are negative ON LICENSE OF [facility] Medical History Morbid obesity Super obesity Nephrolithiasis Bronchitis Obesity Cognitive capacity: Alert and orientated x3 Family History Mother No problems noted. Father Heart attack Social History Household Members: Spouse Housing: House Do you presently have visiting nurse or other home services: No Alcohol intake: former Comment: unknown room Patient Tobacco Use Status: Never used Tobacco e-Cigarette/Vaping Use: Never Used Second Hand Smoke Exposure: Yes Advance Directives Date on File: 01/27/25 service: No Current occupational status: employed and disabled Cognitive needs: No Hearing needs: No Vision needs: Yes (Glasses) Ebola Risk: Travel/Contact With Anyone From Affected Area/s: No Has Patient Experienced Ebola Symptoms: No Meds Allergies Allergy/AdvReac Type Severity Reaction Status Date / Time acetaminophen [Vicodin] Allergy Severe shortness Verified 01/27/25 13:28 of breath hydrocodone [Vicodin] Allergy Severe shortness Verified 01/27/25 13:28 of breath hydromorphone [From Dilaudid] Allergy Severe UNKNOWN, Verified 01/27/25 13:28 Tongue swelling morphine Allergy Unknown Verified 01/27/25 13:29 From VICODIN Allergy Severe ANAPHYLAXIS Uncoded 01/27/25 13:28 Hydrocodone-Acetaminophen Allergy Severe itchiness Uncoded 01/27/25 13:28 SEASONAL ALLERGIES Allergy Severe Wheezing Uncoded 01/27/25 13:28 Active Medications: Current Medications Albuterol/Ipratropium (Albuterol/Iprat 2.5/0.5mg 3 Ml Ampul.Neb) 3 ml INHALE RQ4H WHILE AWAKE PRN PRN Reason: Shortness of Breath/Wheezing Calcium Carbonate (Calcium Carbonate 750 Mg Tab.Chew) 750 mg PO Q4H PRN PRN Reason: Heartburn Heparin Sodium (Porcine) (Heparin Sodium,Porcine 5,000 Unit/Ml Vial) 5,000 unit SUBCUT Q12H [facility] Last Admin: 01/27/25 17:53 Dose: 5,000 unit Dextrose/Lactated Ringer's (D5lr) 1,000 mls @ 125 mls/hr IVCONT .Q8H [facility] Last Admin: 01/27/25 23:02 Dose: 125 mls/hr Piperacillin Sod/Tazobactam (Sod 3.375 gm/ Sodium Chloride) 50 mls @ 100 mls/hr IV Q6H [facility] Last Infusion: 01/27/25 23:51 Dose: Infused Acetaminophen (Ofirmev) 1,000 mg in 100 mls @ 400 mls/hr IV Q6H PRN PRN Reason: Pain, Mild (Pain Scale 1-3) Ketorolac Tromethamine (Ketorolac Tromethamine 15 Mg/Ml Vial) 15 mg IVPUSH Q6H PRN PRN Reason: Pain, Severe (Pain Scale 7-10) Lorazepam (Lorazepam 0.5 Mg Tablet) 0.5 mg PO Q8H PRN PRN Reason: Anxiety Last Admin: 01/27/25 23:03 Dose: 0.5 mg Magnesium Hydroxide (Milk Of Magnesia 30 Ml Oral.Susp) 30 ml PO DAILY PRN PRN Reason: Constipation Melatonin (Melatonin 3 Mg Tablet) 6 mg PO BEDTIME PRN PRN Reason: Insomnia Ondansetron HCl (Ondansetron Hcl 4 Mg/2 Ml Vial) 4 mg IVPUSH QID PRN PRN Reason: Nausea Sodium Chloride (0.9 % Sodium Chloride Flush 3 Ml Syringe) 3 ml IVFLUSH QSHIFT [facility] Last Admin: 01/27/25 23:03 Dose: 3 ml Physical Exam Vital Signs and Narrative: Vital Signs: Last Vital Signs Temp 98.5 F 01/27/25 22:28 Pulse 90 01/27/25 22:28 Resp 18 01/27/25 22:28 BP 129/84 01/27/25 22:28 Pulse Ox 96 01/27/25 22:28 O2 Del Method Nasal Cannula 01/27/25 22:28 O2 Flow Rate 2 01/27/25 22:28 BMI result Body Mass Index 65.1 Alert and orientated X3, able provide hx, follow commands. Neuro: CN II-X11 intact, no deficits, visual acuity intact , glasses on EYES: PERRLA, EOM intact ENT: hearing intact, no issues with swallowing, uvula midline, lips moist, nares patent no epistaxis Cardiac: S1 S2 RRR, no murmur, no JVD, no edema in Lower ext Pulmonary: lungs diminished B, no wheezing Abdominal: Abdomen distended, obese, soft, bowel sounds noted, no guarding, tenderness, rebounding MSK: strength 5/5 upper and lower extremities : no CVA tenderness no bladder distension Extremities: no edema in lower extremities, PT and DP pulses palpable +2 SCDs on Psych: mood stable, judgement and insight good Skin: did not view surgical incision, dressing clean and dry Results Labs 01/27/25 13:43 01/27/25 13:43 Labs: Laboratory Results - last 24 hr 01/27/25 01/27/25 13:43 17:25 MCV 84.5 MCH 28.0 MCHC 33.1 RDW 13.1 Plt Count 304 MPV 9.8 Immature Gran % (Auto) 0.5 H Neut % (Auto) 82.5 H Lymph % (Auto) 10.1 L [place] % (Auto) 6.0 Eos % (Auto) 0.7 Baso % (Auto) 0.2 Lymph # (Auto) 1.0 L [place] # (Auto) 0.6 Eos # (Auto) 0.1 Baso # (Auto) 0.0 Abs Immat Gran (auto) 0.05 H Absolute Neuts (auto) 8.0 Absolute Nucleated RBC 0.000 Nucleated RBC % (auto) 0.0 Hold Purple Top SEE NOTE Anion Gap 14 Estim Creat Clear Calc 163.4 Estimated GFR > 60 Random Glucose 183 H Calcium 9.7 D Total Bilirubin 1.1 H AST 34 ALT 27 Alkaline Phosphatase 72 Total Protein 8.6 H Albumin 3.5 Lipase 51 Urine Color Dark Yellow Urine Appearance Clear Urine pH 6.0 Ur Specific [place] >= 1.030 H Urine Protein 100 (2+) H Urine Glucose (UA) Negative Urine Ketones 15 Urine Blood Negative Urine Nitrite Negative Ur Leukocyte Esterase Negative Urine RBC 6-10 H Urine WBC 0-5 Ur Squamous Epith Cells 0-2 Urine Bacteria None Seen Hyaline Casts 3-5 Granular Casts Present ECG Prior ECG tracings: not available for review Imaging Radiologist's Impressions: Impressions Abdomen/Pelvis CT 01/27/25 15:03 IMPRESSION: Findings consistent with small bowel obstruction secondary to a likely incarcerated umbilical hernia. Electronically signed by: Vimal Emmanuel MD 01/27/2025 03:33 PM EDT RP Assessment and Plan (1) Asthma: Qualifiers: Asthma complication type: unspecified Asthma persistence: unspecified Asthma severity: moderate Qualified Code(s): J45.909 - Unspecified asthma, uncomplicated Status: Chronic (2) MARLYN (obstructive sleep apnea): Status: Chronic (3) Morbid obesity: Status: Chronic (4) Incarcerated ventral hernia: Status: Acute Plan Patient is a 54-year-old male with past medical history of obesity, MARLYN not on CPAP, anxiety, asthma, and nephrolithiasis admitted to the hospital for surgical intervention for incarcerated ventral hernia. General surgery has asked the hospitalist to provide medical consultation for medical management. Please note that pulmonary embolism is listed on patient's problem list from the past but patient denies history of blood clots in the lungs and legs. Patient has the following medical concerns: Asthma -patient offers that he is more dependent on his rescue inhaler, recommend pulmonary consult via his PCP as an outpatient for follow-up to optimize treatment -duo nebs q.4 hours as needed for shortness of breath and wheezing -continue incentive spirometer, patient has been able to achieve 2500 mL so far MARLYN -patient diagnosed with sleep apnea 1-2 years prior but could not afford the CPAP machine -patient advised to review with primary care physician options for obtaining device. Patient does have trouble wearing facial masks as this causes anxiety. Patient deferred CPAP during this hospitalization. -patient can follow-up with Pulmonary as an outpatient for further assessment and to learn more about other options for treatment of MARLYN, Reviewed risks associated with untreated sleep apnea with patient. Morbid obesity -Recommend nutritional consult prior to discharge if patient is interested -patient currently not taking any GLP once and is not interested in medical management of his obesity at this time -TSH was within normal limits on 12/03/2022. Patient can follow-up with his primary regarding further thyroid testing and evaluation as needed. Incarcerated ventral hernia status post repair -pain management and advancing diet per General surgery Patient presents in stable condition status post surgical repair of ventral hernia. Duo nebs ordered p.r.n. for shortness of breath or wheezing but no current indication to start treatment. Educated patient on follow-up as an outpatient for pulmonary care to discuss optimizing treatment for his asthma and to review alternative treatments for MARLYN as patient is not willing to wear CPAP. At this time hospitalist will be signing off. Please reconsult as needed for any further medical concerns. Thank you for this consultation! Total time managing care of this patient today: 25 minutes.
[2025-01-28 03:07] VITALS: BP 121/69; PULSE 86; RESP 18; TEMP 36.1; O2SAT 92
[2025-01-28] MEDS: Dextrose 5 % and Lactated Ring 1,000 ML 125 ML IVCONT (05:53)
[2025-01-28] MEDS: Piperacillin Sodium/Tazobactam 3.375 GM in 0.9 % Sodium Chloride 50 ML IV ×4 (05:58→22:35)
[2025-01-28] MEDS: Heparin Sodium,Porcine 5,000 UNIT/ML VIAL 5000 UNIT SUBCUT ×2 (05:58→16:49)
[2025-01-28 07:22] VITALS: BP 100/50; PULSE 89; RESP 18; TEMP 36.4; O2SAT 94
--- NOTE | 2025-01-28 08:15 | PM.PNGS ---
Subjective Subjective Date of Service: 01/28/25 Interval history: POD 1 following repair of an incarcerated/strangulated ventral hernia with mesh. He reports being very comfortable without the need for any additional pain medication. He slept in the chair and denies any nausea or vomiting. He reports being hungry this morning. He was able to ambulate during the night. He was comfortable wearing the abdominal binder. Physical Exam Vital Signs: Vital Signs: Last Vital Signs Temp 97.5 F 01/28/25 07:22 Pulse 89 01/28/25 07:22 Resp 18 01/28/25 07:22 BP 100/50 L 01/28/25 07:22 Pulse Ox 94 01/28/25 07:22 O2 Del Method Room Air 01/28/25 07:22 O2 Flow Rate 2 01/27/25 22:28 BMI result Body Mass Index 65.1 Const: General: comfortable Nutritional Appearance: well nourished Orientation/consciousness: patient oriented x3 Limitations: no limitations Resp: Other: No shortness of breath, wheezes or respiratory distress GI: Other: Abdominal binder in place. Dressings clean and intact. Skin: Other: Warm, dry, no rash Neuro: General: patient oriented x3 Extrem: Other: No pedal edema Objective Data Active Medications Albuterol/Ipratropium (Albuterol/Iprat 2.5/0.5mg 3 Ml Ampul.Neb) 3 ml INHALE RQ4H WHILE AWAKE PRN PRN Reason: Shortness of Breath/Wheezing Calcium Carbonate (Calcium Carbonate 750 Mg Tab.Chew) 750 mg PO Q4H PRN PRN Reason: Heartburn Heparin Sodium (Porcine) (Heparin Sodium,Porcine 5,000 Unit/Ml Vial) 5,000 unit SUBCUT Q12H [facility] Last Admin: 01/28/25 05:58 Dose: 5,000 unit Documented By: JAY Dextrose/Lactated Ringer's (D5lr) 1,000 mls @ 125 mls/hr IVCONT .Q8H [facility] Last Admin: 01/28/25 05:53 Dose: 125 mls/hr Documented By: JYA Piperacillin Sod/Tazobactam (Sod 3.375 gm/ Sodium Chloride) 50 mls @ 100 mls/hr IV Q6H [facility] Last Infusion: 01/28/25 06:31 Dose: Infused Documented By: JAY Acetaminophen (irm) 1,000 mg in 100 mls @ 400 mls/hr IV Q6H PRN PRN Reason: Pain, Mild (Pain Scale 1-3) Ketorolac Tromethamine (Ketorolac Tromethamine 15 Mg/Ml Vial) 15 mg IVPUSH Q6H PRN PRN Reason: Pain, Severe (Pain Scale 7-10) Lorazepam (Lorazepam 0.5 Mg Tablet) 0.5 mg PO Q8H PRN PRN Reason: Anxiety Last Admin: 01/27/25 23:03 Dose: 0.5 mg Documented By: JAY Magnesium Hydroxide (Milk Of Magnesia 30 Ml Oral.Susp) 30 ml PO DAILY PRN PRN Reason: Constipation Melatonin (Melatonin 3 Mg Tablet) 6 mg PO BEDTIME PRN PRN Reason: Insomnia Ondansetron HCl (Ondansetron Hcl 4 Mg/2 Ml Vial) 4 mg IVPUSH QID PRN PRN Reason: Nausea Sodium Chloride (0.9 % Sodium Chloride Flush 3 Ml Syringe) 3 ml IVFLUSH QSHIFT [facility] Last Admin: 01/27/25 23:03 Dose: 3 ml Documented By: JAY Labs 01/27/25 13:43 01/27/25 13:43 Labs: Laboratory Results - last 24 hr 01/27/25 01/27/25 13:43 17:25 MCV 84.5 MCH 28.0 MCHC 33.1 RDW 13.1 Plt Count 304 MPV 9.8 Immature Gran % (Auto) 0.5 H Neut % (Auto) 82.5 H Lymph % (Auto) 10.1 L [place] % (Auto) 6.0 Eos % (Auto) 0.7 Baso % (Auto) 0.2 Lymph # (Auto) 1.0 L [place] # (Auto) 0.6 Eos # (Auto) 0.1 Baso # (Auto) 0.0 Abs Immat Gran (auto) 0.05 H Absolute Neuts (auto) 8.0 Absolute Nucleated RBC 0.000 Nucleated RBC % (auto) 0.0 Hold Purple Top SEE NOTE Anion Gap 14 Estim Creat Clear Calc 163.4 Estimated GFR > 60 Random Glucose 183 H Calcium 9.7 D Total Bilirubin 1.1 H AST 34 ALT 27 Alkaline Phosphatase 72 Total Protein 8.6 H Albumin 3.5 Lipase 51 Urine Color Dark Yellow Urine Appearance Clear Urine pH 6.0 Ur Specific [place] >= 1.030 H Urine Protein 100 (2+) H Urine Glucose (UA) Negative Urine Ketones 15 Urine Blood Negative Urine Nitrite Negative Ur Leukocyte Esterase Negative Urine RBC 6-10 H Urine WBC 0-5 Ur Squamous Epith Cells 0-2 Urine Bacteria None Seen Hyaline Casts 3-5 Granular Casts Present Procedures Date of Service Date of Service: 01/28/25 Progress Note: A&P Assessment and plan (1) Incarcerated ventral hernia: Status: Acute (2) S/P recurrent ventral herniorrhaphy: Status: Acute (3) Small bowel obstruction: Status: Acute Plan POD 1 following repair of an incarcerated strangulated ventral hernia with mesh with the associated small-bowel obstruction. Patient is much improved this morning with no abdominal pain, nausea or vomiting. Small-bowel obstruction appears to have resolved following repair of the incarcerated hernia. We will restart a diet this morning. He was encouraged to continue to ambulate throughout the day as well. If patient tolerates the diet by tomorrow, she will be ready for discharge to home. Time Spent With Patient Time: Total time managing care of this patient today ____ minutes. Quality Stroke Does the patient have a stroke diagnosis?: No VTE Prior VTE?: Yes VTE Risk Level:: Surgical - moderate VTE Device Contraindication: N/A - Device Ordered VTE Drug Contraindication: N/A - Med Ordered
[2025-01-28 08:42] VITALS: BP 110/70
--- NOTE | 2025-01-28 10:25 | HO.POSTANES ---
Post Anesthesia Evaluation Post Anesthesia Evaluation Date of Service: 01/28/25 Vital Signs: Vital Signs Temp Pulse Resp BP Pulse Ox O2 Del Method O2 Flow Rate 01/28/25 08:42 110/70 01/28/25 07:22 97.5 F 89 18 100/50 L 94 Room Air 01/28/25 03:07 97 F 86 18 121/69 92 Room Air 01/27/25 22:28 98.5 F 90 18 129/84 96 Nasal Cannula 2 Anesthesia: General Endotracheal-GETA Mental Status: Awake Pain Control: Satisfactory Nausea/Vomiting: None Hydration: Adequate Anesthesia-Related Issues: No Anes. Related Issues
--- NOTE | 2025-01-28 10:29 | MHC.CM.PN ---
Patient lives in a home w/ his . Functionally independent. Reports he purchased a cane, but has not needed to use it. No services. PCP - was Dr. Benoit who has retired. Has an appt next month w/ Augusto Flores at same practive. No HCP. CM provided education and offered assistance. Patient declined. Would like to wait until his is present and will ask for CM if he wants to complete one. DP: Home self care, to transport. CM will continue to follow.
--- NOTE | 2025-01-28 10:59 | PC.NURSE ---
MD Wright and DENITA Yi made aware pt c/o intermittent pain behind left knee, pt states he thinks its positional. No redness, warmth, or edema noted. Pt has been wearing SCDs at rest and has walked in hallway multiple times this shift. No new orders at this time, Per DENITA Yi continue with current plan of care.
[2025-01-28] MEDS: Ketorolac Tromethamine 15 MG/ML VIAL IVPUSH ×2 (13:36→19:51)
[2025-01-28 15:39] VITALS: BP 106/55; PULSE 79; RESP 20; TEMP 36.2; O2SAT 94
[2025-01-28] MEDS: 0.9 % Sodium Chloride Flush 3 ML SYRINGE IVFLUSH ×2 (16:49→22:32)
[2025-01-28 19:29] VITALS: BP 129/59; PULSE 97; RESP 18; TEMP 36.4; O2SAT 94
[2025-01-28] MEDS: LORazepam 0.5 MG TABLET PO (23:11)
[2025-01-29 03:16] VITALS: BP 151/68; PULSE 92; RESP 18; TEMP 36.4; O2SAT 95
[2025-01-29] MEDS: Piperacillin Sodium/Tazobactam 3.375 GM in 0.9 % Sodium Chloride 50 ML IV (05:48)
[2025-01-29] MEDS: Heparin Sodium,Porcine 5,000 UNIT/ML VIAL 5000 UNIT SUBCUT (05:52)
[2025-01-29] MEDS: Ketorolac Tromethamine 15 MG/ML VIAL IVPUSH (05:54)
[2025-01-29 07:28] VITALS: BP 106/53; PULSE 77; RESP 20; TEMP 36.6; O2SAT 96
--- NOTE | 2025-01-29 08:22 | MHC.CM.PN ---
Patient medically cleared for dc home self care via private transport.
--- NOTE | 2025-01-29 08:37 | PM.PNGS ---
Subjective Subjective Date of Service: 01/29/25 Interval history: Patient reports slightly increased abdominal pain today, well controlled with Tylenol. He denies nausea or vomiting. He was able to tolerate a regular diet. He was able to ambulate yesterday. He feels ready for discharge to home. Physical Exam Vital Signs: Vital Signs: Last Vital Signs Temp 97.8 F 01/29/25 07:28 Pulse 77 01/29/25 07:28 Resp 20 01/29/25 07:28 BP 106/53 L 01/29/25 07:28 Pulse Ox 96 01/29/25 07:28 O2 Del Method Room Air 01/29/25 07:28 O2 Flow Rate 2 01/27/25 22:28 BMI result Body Mass Index 65.1 Const: General: comfortable Nutritional Appearance: well nourished Orientation/consciousness: patient oriented x3 Resp: Effort & Inspection: normal respiratory effort GI: Other: Obese abdomen. Dressings changed. Wounds are clean, dry, and intact without redness or discharge. No evidence of hernia recurrence. Clean sterile dressing applied. Skin: Other: Warm, dry, no rash Neuro: General: patient oriented x3 Objective Data Active Medications Albuterol/Ipratropium (Albuterol/Iprat 2.5/0.5mg 3 Ml Ampul.Neb) 3 ml INHALE RQ4H WHILE AWAKE PRN PRN Reason: Shortness of Breath/Wheezing Calcium Carbonate (Calcium Carbonate 750 Mg Tab.Chew) 750 mg PO Q4H PRN PRN Reason: Heartburn Heparin Sodium (Porcine) (Heparin Sodium,Porcine 5,000 Unit/Ml Vial) 5,000 unit SUBCUT Q12H [facility] Last Admin: 01/29/25 05:52 Dose: 5,000 unit Documented By: JAY Piperacillin Sod/Tazobactam (Sod 3.375 gm/ Sodium Chloride) 50 mls @ 100 mls/hr IV Q6H [facility] Last Infusion: 01/29/25 06:25 Dose: Infused Documented By: JAY Acetaminophen (Ofirmev) 1,000 mg in 100 mls @ 400 mls/hr IV Q6H PRN PRN Reason: Pain, Mild (Pain Scale 1-3) Ketorolac Tromethamine (Ketorolac Tromethamine 15 Mg/Ml Vial) 15 mg IVPUSH Q6H PRN PRN Reason: Pain, Severe (Pain Scale 7-10) Last Admin: 01/29/25 05:54 Dose: 15 mg Documented By: JAY Lorazepam (Lorazepam 0.5 Mg Tablet) 0.5 mg PO Q8H PRN PRN Reason: Anxiety Last Admin: 01/28/25 23:11 Dose: 0.5 mg Documented By: JAY Magnesium Hydroxide (Milk Of Magnesia 30 Ml Oral.Susp) 30 ml PO DAILY PRN PRN Reason: Constipation Melatonin (Melatonin 3 Mg Tablet) 6 mg PO BEDTIME PRN PRN Reason: Insomnia Ondansetron HCl (Ondansetron Hcl 4 Mg/2 Ml Vial) 4 mg IVPUSH QID PRN PRN Reason: Nausea Sodium Chloride (0.9 % Sodium Chloride Flush 3 Ml Syringe) 3 ml IVFLUSH QSHIFT [facility] Last Admin: 01/28/25 22:32 Dose: 3 ml Documented By: JAY Labs 01/27/25 13:43 01/27/25 13:43 Procedures Date of Service Date of Service: 01/29/25 Progress Note: A&P Assessment and plan (1) Incarcerated ventral hernia: Status: Acute (2) S/P recurrent ventral herniorrhaphy: Status: Acute Plan Patient continues to do well following repair of an incarcerated ventral hernia with mesh. His wounds are clean and intact without evidence of infection or hernia recurrence. He was ready for discharge to home. He was encouraged to ambulate daily. He may shower with the dressing off. He should follow up in the office in approximately 1 week. I recommended no lifting more than 10 lb for the next month. He is welcome to call for any new concerns or questions. Time Spent With Patient Time: Total time managing care of this patient today ____ minutes. Quality Stroke Does the patient have a stroke diagnosis?: No VTE Prior VTE?: Yes VTE Risk Level:: Surgical - moderate VTE Device Contraindication: N/A - Device Ordered VTE Drug Contraindication: N/A - Med Ordered
[2025-01-29] MEDS: Acetaminophen 1,000 MG/100 ML PIGGYBACK 400 MG IV (09:03)
[2025-01-29] MEDS: 0.9 % Sodium Chloride Flush 3 ML SYRINGE IVFLUSH (09:14)
--- NOTE | 2025-01-29 12:22 | P.DS_ITS ---
DS: Providers Provider Date of Service: 01/29/25 <Allyn Knight PA-C - Last Filed: 02/02/25 09:40> Date of admission: 01/27/25 16:43 <Allyn Knight PA-C - Last Filed: 02/02/25 09:40> Date of discharge: 01/29/25 <Allyn Knight PA-C - Last Filed: 02/02/25 09:40> Primary care physician: CHIDI Ball <Allyn Knight PA-C - Last Filed: 02/02/25 09:40> Attending physician on admission: Narciso Wright <Allyn Knight PA-C - Last Filed: 02/02/25 09:40> Consults: 01/27/25 22:44 Consult to Hospitalist Routine Comment: Consulting Provider: [facility] Reason For Exam: SBO, Medical management <Allyn Knight PA-C - Last Filed: 02/02/25 09:40> Attending physician on discharge: Narciso Wright <Allyn Knight PA-C - Last Filed: 02/02/25 09:40> DS: Diagnosis Discharge Diagnosis (1) Incarcerated ventral hernia: Status: Acute <LAXMI Munguia Last Filed: 02/02/25 09:40> (2) S/P recurrent ventral herniorrhaphy: Status: Acute <LAXMI Munguia Last Filed: 02/02/25 09:40> DS: Summary Hospital Course Hospital Course: HPI AT ADMISSION: Chuck Narvaez is a 54 year old male presenting with complaints of abdominal pain in the upper abdomen. 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 Later he began lifting laundry at home and noted increased pain and swelling in the upper abdomen. He was brought to the ED by EMS and developed some nausea and vomiting on transport. He denies a previous history of abdominal wall hernia or of abdominal wall surgery. He does have a history of kidney stones in his undergone several lithotripsies. He denies any abdominal surgeries. In the emergency department he was noted to be tender in the upper abdomen above the umbilicus with a tender lump. CT abdomen and pelvis revealed a ventral hernia with incarcerated loop of small bowel with evidence of obstruction and inflammation. HOSPITAL COURSE: He was admitted to the surgical service for further management of new onset incarcerated ventral hernia with evidence of bowel obstruction. It was therefore recommended to repair this ventral hernia that day with mesh. On 01/27/25, repair of incarcerated ventral hernia with phasix mesh was performed by Dr. Wright without complication. Patient tolerated the procedure well. He had an uncomplicated recovery course. On POD #1 he felt well and his nausea/vomiting resolved. His diet was advanced. The following day on the day of discharge he was tolerating a solid diet without nausea or vomiting, had good pain control, was ambulating without difficulty. His abdomen was benign with clean incision without evidence of hernia recurrence. He was hemodynamically stable. He was discharged to home on 01/29/25 in stable condition. <Allyn Knight PA-C - Last Filed: 02/02/25 09:40> Status at Discharge Functional status at discharge: independent ambulation <Allyn Knight PA-C - Last Filed: 02/02/25 09:40> Overall status at discharge: patient is progressing back to baseline <Allyn Knight PA-C - Last Filed: 02/02/25 09:40> Time Attestation Discharge Coordination Time (in mins): 25 <Allyn Knight PA-C - Last Filed: 02/02/25 09:40> 25 <Narciso Wright MD - Last Filed: 02/02/25 09:34> Quality: Safe Use of Opioids Does Pt have an Active Cancer Diagnosis on the Problem List?: No <Allyn Knight PA-C - Last Filed: 02/02/25 09:40> No <Narciso Wright MD - Last Filed: 02/02/25 09:34> Quality: Stroke Does the patient have a stroke diagnosis?: No <Allyn Knight PA-C - Last Filed: 02/02/25 09:40> No <Narciso Wright MD - Last Filed: 02/02/25 09:34> Physical Exam Vital Signs: Vital Signs: Last Vital Signs Temp 97.8 F 01/29/25 07:28 Pulse 77 01/29/25 07:28 Resp 20 01/29/25 07:28 BP 106/53 L 01/29/25 07:28 Pulse Ox 96 01/29/25 07:28 O2 Del Method Room Air 01/29/25 07:28 O2 Flow Rate 2 01/27/25 22:28 BMI result Body Mass Index 65.1 <LAXMI Munguia Last Filed: 02/02/25 09:40> Const: General: comfortable, no acute distress and alert <LAXMI Munguia Last Filed: 02/02/25 09:40> Orientation/consciousness: patient oriented x3 <LAXMI Munguia Last Filed: 02/02/25 09:40> Resp: Effort & Inspection: normal respiratory effort <LAXMI Munguia Last Filed: 02/02/25 09:40> GI: Other: Obese abdomen. Dressings changed. Wounds are clean, dry, and intact without redness or discharge. No evidence of hernia recurrence. Clean sterile dressing applied. <LAXMI Munguia Last Filed: 02/02/25 09:40> Skin: General skin exam: no rashes or lesions noted <LAXMI Munguia Last Filed: 02/02/25 09:40> Neuro: General: patient oriented x3 and moves all extremities <LAXMI Munguia Last Filed: 02/02/25 09:40> DS: Data Data Completed and Pending Completed studies during hospitalization [Text1]: 01/27/25 21:26 Surgical [PTH] Routine Ventral hernia, herniorrhaphy: Mesothelial-lined fibrovascular and adipose tissue with chronic inflammation, consistent with hernia sac <LAXMI Munguia Last Filed: 02/02/25 09:40> Discharge Plan Discharge Anticipated Discharge Date/Time: 01/29/25 08:17 <LAXMI Munguia Last Filed: 02/02/25 09:40> Patient Disposition: Home, Self-Care <LAXMI Munguia Last Filed: 02/02/25 09:40> Discharge Diagnosis: Incarcerated/strangulated ventral hernia, small-bowel obstruction <Allyn Knight PA-C - Last Filed: 02/02/25 09:40> Incarcerated/strangulated ventral hernia, small-bowel obstruction <Narciso Wright MD - Last Filed: 02/02/25 09:34> Referrals: Narciso Wright MD [Physician] - 1 Week Augusto Flores FNP-C [Primary Care Provider] - 1 Week (New PCP) <Allyn Knight PA-C - Last Filed: 02/02/25 09:40> Discharge Medications: Continued albuterol sulfate 90 mcg/actuation HFA aerosol inhaler 2 puff INHALATION Q4-6H PRN (Reason: muscle spasm) 30 Days Qty: 8.5 0RF <Allyn Knight PA-C - Last Filed: 02/02/25 09:40> Discharge Orders: Discharge Order (Routine); Ordered 01/29/25 Ordered By: Narciso Wright <Allyn Knight PA-C - Last Filed: 02/02/25 09:40> Diet: Advance to usual diet <Allyn Knight PA-C - Last Filed: 02/02/25 09:40> Advance to usual diet <Narciso Wright MD - Last Filed: 02/02/25 09:34> Activity on Discharge: No heavy lifting <Allyn Knight PA-C - Last Filed: 02/02/25 09:40> No heavy lifting <Narciso Wright MD - Last Filed: 02/02/25 09:34> Stand Alone Forms: Patient Portal Discharge page, Work/School Release <Allyn Knight PA-C - Last Filed: 02/02/25 09:40> Print Language: Belarusian <Allyn Knight PA-C - Last Filed: 02/02/25 09:40> Activity Restrictions/Additional Instructions: No lifting > 10 pounds for 1 month No driving for one week Ice to the incision x 24 hours After 24 hours, use warm compress or heating pad on low as needed Take Tylenol Extra-strength 1-2 tabs every 6 hours for the first day, then prn Colace 100 mg every day as needed for constipation You may shower with the dressing off. A dressing may be applied if any discharge is noted. Follow up in office in one week. <LAXMI Munguia Last Filed: 02/02/25 09:40> Care Plan Goals: Return to normal activity and diet <LAXMI Munguia Last Filed: 02/02/25 09:40> Health Concerns: Abdominal pain, nausea and vomiting <LAXMI Munguia Last Filed: 02/02/25 09:40> Plan of Treatment: Repair of incarcerated ventral hernia with mesh <LAXMI Munguia Last Filed: 02/02/25 09:40> Assessment: Incarcerated/strangulated ventral hernia <LAXMI Munguia Last Filed: 02/02/25 09:40> Patient Instructions: Ventral Hernia Repair (DC) <Allyn Knight PA-C - Last Filed: 02/02/25 09:40> Discharge Date/Time: 01/29/25 10:26 <LAXMI Munguia Last Filed: 02/02/25 09:40>
== END 2025-01-29 10:26 | disposition home or self-care (01) | DRG 227 ==
LOC: HO.ED 14:02 → HO.EDOVER 17:08 → HO.S3 19:03
PROVIDERS: Physician Assistant; Admitting Provider Surgery; Emergency Provider Emergency Medicine Emergency Medical Services; Visit Provider Surgery
PROC: 0WUF0JZ Supplement Abdominal Wall with Synthetic Substitute, Open Approach (ICD-10-PCS; principal; 2025-01-27 19:10)
DX: K43.6 Other and unspecified ventral hernia with obstruction, without gangrene (principal); Z68.44 Body mass index [BMI] 60.0-69.9, adult; E66.01 Morbid (severe) obesity due to excess calories; J45.909 Unspecified asthma, uncomplicated; G47.33 Obstructive sleep apnea (adult) (pediatric); Z71.3 Dietary counseling and surveillance
CPT/HCPCS: 36415; 74177; 80053; 81001; 83690; 85025; 88302; 99285; C1781; C9088; J0131; J1100; J1644; J1885; J2003; J2250; J2405; J2543; J2704; J2795; J3010; Q9967

== ENCOUNTER → 2025-01-27 14:22 | Outpatient (BNV) | payer OTHER, SELFPAY | PROVIDERS: Emergency Provider Emergency Medicine Emergency Medical Services; PCP Internal Medicine; Visit Provider Radiology Diagnostic Radiology | DX: R10.33 Periumbilical pain (principal) | CPT/HCPCS: 74177 ==

== ENCOUNTER → 2025-01-27 16:43 | Outpatient (BNV) | payer OTHER, SELFPAY | PROVIDERS: Admitting Provider Surgery; Emergency Provider Emergency Medicine Emergency Medical Services; PCP Internal Medicine; Visit Provider Surgery | DX: K43.6 Other and unspecified ventral hernia with obstruction, without gangrene (principal); E66.9 Obesity, unspecified | CPT/HCPCS: 49594; 99222; 99232 ==

== ENCOUNTER → 2025-01-27 16:43 | Outpatient (BNV) | payer OTHER, SELFPAY | PROVIDERS: Admitting Provider Surgery; Emergency Provider Emergency Medicine Emergency Medical Services; PCP Internal Medicine; Visit Provider Nurse Practitioner Family | DX: J45.909 Unspecified asthma, uncomplicated (principal); G47.33 Obstructive sleep apnea (adult) (pediatric); E66.01 Morbid (severe) obesity due to excess calories; K43.6 Other and unspecified ventral hernia with obstruction, without gangrene | CPT/HCPCS: 99222 ==

== ENCOUNTER 2025-02-08 11:24 | Outpatient (AMB) | payer OTHER, SELFPAY ==
--- NOTE | 2025-02-08 11:29 | MHC.OFFVIS ---
Vital Signs 02/08/25 11:35 Height 5 ft 3 in Weight 357 lb 2.382 oz BMI 63.3 Intake Visit Reasons: post Repair of incarcerated ventral hernia Intake Note: Patient is seen in office for post op assessment post repair of incarcerated ventral hernia. 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 Accompanied by: Other Relationship Allergies acetaminophen [Vicodin] Allergy (Severe, Verified 02/08/25 11:37) shortness of breath hydrocodone [Vicodin] Allergy (Severe, Verified 02/08/25 11:37) shortness of breath hydromorphone [From Dilaudid] Allergy (Severe, Verified 02/08/25 11:37) UNKNOWN, Tongue swelling morphine Allergy (Verified 02/08/25 11:37) Unknown From VICODIN Allergy (Severe, Uncoded 02/08/25 11:37) ANAPHYLAXIS Hydrocodone-Acetaminophen Allergy (Severe, Uncoded 02/08/25 11:37) itchiness SEASONAL ALLERGIES Allergy (Severe, Uncoded 02/08/25 11:37) Wheezing HPI Comments Details: Mr. Narvaez presents for follow up. He presented to the ED with complaints of abdominal pain and was found to have a ventral hernia with incarcerated loop of small bowel with evidence of obstruction and inflammation on CT scan abd/pelvis. He underwent repair of incarcerated ventral hernia with mesh on 01/27/[address] Wright. He tolerated the procedure well and was discharged on 01/29/25. He reports feeling well since the surgery. He only required tylenol and did not need to take any pain medication today. He is tolerating a solid diet and moving his bowels without difficulty. He was ambulating with a cane post operatively but has stopped using this. He reports the incision is itchy but has no concerns. REPLACED BY [facility] Medical History Incarcerated ventral hernia (01/27/25) Small bowel obstruction Morbid obesity Super obesity Nephrolithiasis Bronchitis Obesity Surgical History (Updated 02/08/25 @ 15:25 by Allyn Knight PA-C) S/P recurrent ventral herniorrhaphy (01/27/25) Family History Mother No problems noted. Father Heart attack Social History Household Members: Spouse Housing: House Do you presently have visiting nurse or other home services: No Alcohol intake: former Comment: unknown room Patient Tobacco Use Status: Never used Tobacco e-Cigarette/Vaping Use: Never Used Second Hand Smoke Exposure: Yes Advance Directives Date on File: 01/27/25 service: No Current occupational status: employed and disabled Cognitive needs: No Hearing needs: No Vision needs: Yes (Glasses) Review of Systems Const Denies chills and Denies fever(s) Card Denies dyspnea Resp Denies dyspnea GI Reports as per HPI Skin/Breast Denies rash Physical Exam Vital Signs: BMI result Body Mass Index 63.3 Const General: comfortable, no acute distress and alert Orientation/consciousness: patient oriented x3 Resp Effort & Inspection: normal respiratory effort GI Other: incision clean appearing and edges well approximated, very small amount of erythema localized to staple edges throughout, mild induration, no evidence of hernia recurrence Palpation (GI): Soft to palpation and no guarding Skin General skin exam: no rashes or lesions noted Neuro General: patient oriented x3 Assessment & Plan Assessment & Plan (1) S/P recurrent ventral herniorrhaphy: Onset Date: 01/27/25 Comment: Narciso Wright MD Code(s): Z98.890 - Other specified postprocedural states; Z87.19 - Personal history of other diseases of the digestive system Category: Surgical Plan 54 year old male who was found to have ventral hernia with incarcerated loop of small bowel with evidence of obstruction on CT scan abd/pelvis and subsequently underwent repair of incarcerated ventral hernia with mesh on 01/27/25. He tolerated the procedure well and incision is clean appearing and healing well without evidence of hernia recurrence. [place] were removed today uneventfully. He is to follow up in 2 weeks for a wound check or sooner if needed. He was instructed to continue to heavy lifting or strenuous activities for now. All questions answered. Coding Level of Care Code Global (61217) Diagnoses S/P recurrent ventral herniorrhaphy Z98.890; Z87.19
[2025-02-08 11:35] VITALS: BMI 63.3
== END 2025-02-08 12:06 | disposition home or self-care (01) ==
LOC: HO.HGS 11:24
PROVIDERS: Visit Provider Surgery
DX: K43.0 Incisional hernia with obstruction, without gangrene (principal); Z09 Encounter for follow-up examination after completed treatment for conditions other than malignant neoplasm
CPT/HCPCS: 99212

== ENCOUNTER → 2025-02-08 11:24 | Outpatient (BNVA) | payer OTHER, SELFPAY | PROVIDERS: Visit Provider Surgery | DX: Z87.19 Personal history of other diseases of the digestive system (principal); Z98.890 Other specified postprocedural states | CPT/HCPCS: 99212 ==

== ENCOUNTER 2025-02-21 11:13 | Outpatient (AMB) | payer OTHER, SELFPAY ==
--- NOTE | 2025-02-21 11:17 | MHC.OFFVIS ---
Vital Signs 02/21/25 11:18 Height 5 ft 3 in Weight 358 lb 4 oz BMI 63.5 BP 149/80 H Blood Pressure Location Rt brachial Position Sitting Pulse 86 Pulse Source Pulse Oximeter Temp 97.6 F Temp Source Tympanic Pulse Oximetry (%) 95 Oxygen Delivery Method Room Air Intake Visit Reasons: 2WK FUV Repair of incarcerated ventral hernia Intake Note: Patient presents post-op. when patient stretches gets a pain in belly button Allergies acetaminophen [Vicodin] Allergy (Severe, Verified 02/21/25 11:24) shortness of breath hydrocodone [Vicodin] Allergy (Severe, Verified 02/21/25 11:24) shortness of breath hydromorphone [From Dilaudid] Allergy (Severe, Verified 02/21/25 11:24) UNKNOWN, Tongue swelling morphine Allergy (Verified 02/21/25 11:24) Unknown From VICODIN Allergy (Severe, Uncoded 02/08/25 11:37) ANAPHYLAXIS Hydrocodone-Acetaminophen Allergy (Severe, Uncoded 02/08/25 11:37) itchiness SEASONAL ALLERGIES Allergy (Severe, Uncoded 02/08/25 11:37) Wheezing HPI HPI 2WK FUV Repair of incarcerated ventral hernia: Details: Mr. Narvaez presents for follow up after his incarcerated ventral hernia repair with mesh on 01/27/[address] Wright. He notes some sharp pain at his umbilicus with stretching. Denies pain at rest. He is nervous to go back to work with the pain as he does heavy lifting and stretching overhead. He is tolerating a solid diet and continues to move his bowel without difficulty. He is now ambulating without a cane. He has no further concerns. [facility] Medical History Incarcerated ventral hernia (01/27/25) Small bowel obstruction Morbid obesity Super obesity Nephrolithiasis Bronchitis Obesity Surgical History S/P recurrent ventral herniorrhaphy (01/27/25) Family History Mother No problems noted. Father Heart attack Social History Household Members: Spouse Housing: House Do you presently have visiting nurse or other home services: No Alcohol intake: former Comment: unknown room Patient Tobacco Use Status: Never used Tobacco e-Cigarette/Vaping Use: Never Used Second Hand Smoke Exposure: Yes Advance Directives Date on File: 01/27/25 service: No Current occupational status: employed and disabled Cognitive needs: No Hearing needs: No Vision needs: Yes (Glasses) Review of Systems Const Denies chills and Denies fever(s) Card Denies dyspnea Resp Denies dyspnea GI Reports as per HPI Skin/Breast Denies rash Physical Exam Vital Signs: Last Vital Signs Temp 97.6 F 02/21/25 11:18 Pulse 86 02/21/25 11:18 BP 149/80 H 02/21/25 11:18 Pulse Ox 95 02/21/25 11:18 Oxygen Delivery Method Room Air 02/21/25 11:18 BMI result Body Mass Index 63.5 Const Orientation/consciousness: patient oriented x3 Resp Effort & Inspection: normal respiratory effort GI Other: ventral hernia repair incision well healed, no erythema, mild induration centrally no evidence of recurrence with valsalva Inspection: No distended Palpation (GI): Soft to palpation and nontender Skin General skin exam: no rashes or lesions noted Neuro General: patient oriented x3 and moves all extremities Assessment & Plan Assessment & Plan (1) S/P recurrent ventral herniorrhaphy: Onset Date: 01/27/25 Comment: Narciso Wright MD Code(s): Z98.890 - Other specified postprocedural states; Z87.19 - Personal history of other diseases of the digestive system Category: Surgical Plan 54 year old male s/p repair of incarcerated ventral hernia with mesh on 01/27/25. He reports pain at his umbilicus with stretching and is nervous to return to work where he will have to do heavy lifting. Incision is well healed without evidence of infection, no evidence of hernia recurrence. He was instructed to continue to no heavy lifting or strenuous activities for now until he is 6 weeks post op. Work note given to hold off on return until he is 6 weeks post op as he has no light duty. He is to return in 2 weeks and instructed to call sooner if needed. All questions answered. Coding Level of Care Code Est Pt Level 2 (46335) Diagnoses S/P recurrent ventral herniorrhaphy Z98.890; Z87.19
[2025-02-21 11:18] VITALS: BP 149/80; PULSE 86; TEMP 36.4; O2SAT 95; BMI 63.5
== END 2025-02-21 11:44 | disposition home or self-care (01) ==
LOC: HO.HGS 11:14
PROVIDERS: Visit Provider Physician Assistant Surgical
DX: Z98.890 Other specified postprocedural states (principal); Z87.19 Personal history of other diseases of the digestive system
CPT/HCPCS: 99212

== ENCOUNTER → 2025-02-21 11:13 | Outpatient (BNVA) | payer OTHER, SELFPAY | PROVIDERS: Visit Provider Physician Assistant Surgical | DX: Z98.890 Other specified postprocedural states (principal); Z87.19 Personal history of other diseases of the digestive system | CPT/HCPCS: 99212 ==

== ENCOUNTER 2025-06-26 14:06 | Outpatient (AMB) | payer OTHER, SELFPAY ==
--- NOTE | 2025-06-26 14:09 | MHC.OFFWIV ---
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 Allergies acetaminophen (Vicodin) Allergy (Severe, Verified 06/26/25 14:13) shortness of breath hydrocodone (Vicodin) Allergy (Severe, Verified 06/26/25 14:13) shortness of breath hydromorphone (From Dilaudid) Allergy (Severe, Verified 06/26/25 14:13) UNKNOWN, Tongue swelling morphine Allergy (Verified 06/26/25 14:13) Unknown From VICODIN Allergy (Severe, Uncoded 02/08/25 11:37) ANAPHYLAXIS Hydrocodone-Acetaminophen Allergy (Severe, Uncoded 02/08/25 11:37) itchiness SEASONAL ALLERGIES Allergy (Severe, Uncoded 02/08/25 11:37) Wheezing HPI HPI Comments History of Present Illness Details 54 y/o Male patient who presents to the walk in clinic with c/o Severe SOB, Chest tightness, and Wheezing for few days now. He does have h/o poorly controlled Asthma with frequent exacerbations with hospitalizations. Usually during the Fall/Winter seasons his Asthma starts to act up. He is currently only using Albuterol rescue inhaler. 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 [facility] Medical History (Updated 06/26/25 @ 15:10 by Lidia Munoz NP) Asthma with acute exacerbation Incarcerated ventral hernia (01/27/25) Small bowel obstruction Morbid obesity Super obesity Nephrolithiasis Bronchitis Obesity Surgical History S/P recurrent ventral herniorrhaphy (01/27/25) Family History Mother No problems noted. Father Heart attack Social History Household Members: Spouse Housing: House Do you presently have visiting nurse or other home services: No Alcohol intake: former Comment: unknown room Patient Tobacco Use Status: Never used Tobacco e-Cigarette/Vaping Use: Never Used Second Hand Smoke Exposure: Yes Advance Directives Date on File: 01/27/25 service: No Current occupational status: employed and disabled Cognitive needs: No Hearing needs: No Vision needs: Yes (Glasses) Review of Systems Const All systems reviewed & are unremarkable except as noted in HPI and below Physical Exam Vital Signs: Last Vital Signs Temp 97.9 F 06/26/25 14:10 Pulse 98 06/26/25 14:10 Resp 20 06/26/25 14:10 BP 138/82 06/26/25 14:10 Pulse Ox 96 06/26/25 14:10 Oxygen Delivery Method Room Air 06/26/25 14:10 BMI result Body Mass Index 63.6 Const General: no acute distress Nutritional Appearance: obese morbidly obese Orientation/consciousness: patient oriented x3 Resp Effort & Inspection: normal respiratory effort and audible wheezes Auscultation: no crackles, no rales, rhonchi and wheezes Cardio Heart sounds: S1 normal heart sound present and S2 normal heart sound present Neuro General: patient oriented x3, gait normal and moves all extremities Psych Speech and movement: Normal speech and movement present Office Procedures Nebulizer Treatment Nebulizer Treatment [id number] RX initial, or Nebulizer Subsequent Treatment Office Meds ipratropium 0.5 mg-albuterol 3 mg (2.5 mg base)/3 mL nebulization soln Performing Provider: Lidia Munoz NP Performing Location: [facility] Administered by: Lidia Munoz NP on 06/26/25 15:15 Dose Route Admin Location Dispensed Lot Number Expiration Date [facility] Contract Design Agent 3 mL inhalation 3 mL Assessment & Plan Assessment & Plan (1) Asthma with acute exacerbation: Code(s): J45.901 - Unspecified asthma with (acute) exacerbation Qualifiers: Asthma persistence: persistent Asthma severity: moderate Qualified Code(s): J45.41 - Moderate persistent asthma with (acute) exacerbation Plan: Ordered Neb Tx in the Office. Ordered Oral Prednisone and started hime on Advair for Daily Use. Advised to continue with home Neb q4-6 hours Advised to f/u with PCP for possible Pulmonology referral. Orders: Orders AMB Nebulizer Treatment Today J45.41 - Moderate persistent asthma with (acute) exacerbation Medications: New ipratropium-albuterol 0.5 mg-3 mg(2.5 mg base)/3 mL 3 mL inhalation Q4-6H PRN 90 mL 1RF wheezing J45.41 - Moderate persistent asthma with (acute) exacerbation fluticasone propion-salmeterol 45-21 mcg/actuation (Advair HFA) 2 puffs inhalation BID 12 grams 1RF J45.41 - Moderate persistent asthma with (acute) exacerbation prednisone 50 mg PO DAILY 5 tabs 0RF 5 days J45.41 - Moderate persistent asthma with (acute) exacerbation azithromycin 500 mg PO DAILY 3 tabs 0RF 3 days J45.41 - Moderate persistent asthma with (acute) exacerbation Refilled albuterol sulfate 90 mcg/actuation 2 puffs inhalation Q4-6H PRN 8.5 grams 2RF muscle spasm 30 days Coding Level of Care Code Est Pt Level 4 (38748) Diagnoses Moderate persistent asthma with acute exacerbation J45.41 Asthma persistence: persistent Asthma severity: moderate CPT Codes Nebulizer Treatment - Nebulizer Treatment, initial or subsequent: [id number] RX initial, or Nebulizer Subsequent Treatment ([id number]) Time Spent (min) 20
[2025-06-26 14:10] VITALS: BP 138/82; PULSE 98; RESP 20; TEMP 36.6; O2SAT 96; BMI 63.6
--- OUTSIDE RECORDS SUMMARY | 2025-06-26 19:26 | XMS_ITS | Clinical Summary ---
Author Organization [facility] Address [address] [address] Phone Care Team Providers Care Drafter Landscape Name Role Phone Javier Benoit MD Primary Care Provider [phone] Allergies Active Allergy Reactions Criticality Noted Date Comments Hydromorphone 04/19/2023 Morphine 04/19/2023 Oxycodone-Acetaminophen 04/19/2023 Medications albuterol 90 mcg/actuation inhaler Inhale 2 puffs into the lungs every 4 (four) hours as needed (bronchospasm). [facility] pharmacy instructions: 2 puffs every 4-6 hours as needed for bronchospasm Active fluticasone propionate (FLOVENT HFA) 110 mcg/actuation inhaler Inhale 2 puffs into the lungs 2 (two) times a day. Active apixaban (ELIQUIS) 5 mg tabletIndications:p ulmonary thromboembolism Take 2 tablets (10 mg total) by mouth 2 (two) times a day for 6 days, THEN 1 tablet (5 mg total) 2 (two) times a day for 24 days. Indications: a clot in the lung. 72 tablet 04/23/20 23 Active tamsulosin (FLOMAX) 0.4 mg Cap Take 1 capsule (0.4 mg total) by mouth daily for 14 days. 14 capsule 01/26/20 24 Active ondansetron (ZOFRAN-ODT) 4 MG disintegrating tablet Take 1 tablet (4 mg total) by mouth every 8 (eight) hours as needed. 20 tablet 01/26/20 24 Active budesonide-formoter ol 80-4.5 mcg/actuation inhaler Inhale 2 puffs into the lungs every 4 (four) hours as needed. 10.2 g 1 03/14/20 24 Active Active Problems Problem Noted Date Diagnosed Date Other insomnia 06/26/2023 Acute pulmonary embolism without acute cor pulmo nale 04/20/2023 Morbid obesity with BMI of 60.0-69.9, adult 04/11 Right middle lobe pulmonary nodule 04/20/2023 Type 2 diabetes mellitus, wi thout long-term current use of insulin 04/20/2023 Asthma exacerbation 04/19/2023 Resolved Problems Problem Noted Date Diagnosed Date Resolved Date Acute respiratory failure with hypoxia 04/19/2023 04/23/2023 Social History Tobacco Use Types Packs/Day Years Used Date Smoking Tobacco: Never Smokeless Tobacco: Never Alcohol Use Standard Drinks/Week Comments Yes 0 (1 standard drink = 0.6 oz pur e alcohol) Home Health Assessment: Transportation Answer Date Recorded Lack of Transportation (Medical) No 04/25/2023 Lack of Transportation (Non-Medical) No 04/25/2023 Patient Unable or Declines to Respond No 04/25/2023 Education Answer Date Recorded Are you interested in more education? Not on alee e 04/19/2023 Are you concerned about learning? Not on file 04/19/2023 No 04/19/2023 No 04/19/2023 Digital Access Answer Date Recorded No 04/19/2023 No 04/19/2023 Reliable internet access at home? Not on file 04/19/2023 Device with a working camera? Not on file Intimate Partner Violence Answer Date R ecorded Are you denied basic needs s uch as food, clothing, or medical care? No 03/14/2024 In the past 12 months have y ou been in a relationship with a person who hurts, threatens, or tries to control you? No 03/14/2024 Are you denied basic needs s uch as food, clothing, or medical care? No 03/14/2024 In the past 12 months have y ou been in a relationship with a person who hurts, threatens, or tries to control you? No 03/14/2024 Sex and Gender Information Value Date Recorded Sex Assigned at Male 01/26/2024 8:32 AM EDT Legal Sex Male 12:51 AM EDT Gender Identity Male 01/26/2024 8:32 AM EDT Sexual Orientation Straight 01/26/2024 8: 32 AM EDT Last Filed Vital Signs Vital Sign Reading Time Taken Comments Blood Pressure 121/80 03/14/2024 10:00 AM EDT Pulse 86 03/14/2024 8:04 AM EDT Temperature 36.5 C (97.7 F) 03/14/2024 10:00 AM EDT Respiratory Rate 18 03/14/2024 8:04 AM EDT Oxygen Saturation 97% 03/14/2024 10:00 AM EDT Inhaled Oxygen Concentration 50% 04/19/2023 6 :11 AM EDT Weight 167.4 kg (369 lb) 03/02/2024 11:31 AM EDT Height 160 cm (5' 3 ) 03/02/2024 11:31 AM EDT Body Mass Index 65.37 03/02/2024 11:31 AM EDT Plan of Treatment Health Maintenance Due Date Last Done Comments Adult Td,Tdap Booster 1970 DEPRESSION SCREENING 1982 HEPATITIS C SCREENING 1988 HIV ONE-TIME SCREENING (18-6 5 YEARS) 1988 LIPID PANEL 1988 PNEUMOCOCCAL VACCINES (50+ years) (1 of 2 - PCV) 1989 COLOGUARD 2015 COLONOSCOPY 2015 COLORECTAL CANCER SCREENING 2015 FIT TEST 2015 FOBT 2015 SIGMOIDOSCOPY 2015 VIRTUAL COLONOSCOPY 2015 ZOSTER VACCINES (1 of 2) 2020 DIABETIC EYE EXAM 04/20/2023 URINE MICROALBUMIN/CREATININ E RATIO 04/20/2023 HEMOGLOBIN A1C 10/20/2023 04/19/2023 BLOOD PRESSURE 12/25/2023 06/26/2023 INFLUENZA VACCINE (#1) 2025 COVID-19 VACCINE (3 - 2024-2 6 season) 2025 02/02/2021, 01/05/2021 SMOKING STATUS SCREENING (On ce After 26 Yrs) Completed 01/26/2024 HEPATITIS A VACCINES Aged Out No long er eligible based on patient's age to complete this topic HIB VACCINES Aged Out No longer eligi ble based on patient's age to complete this topic MENINGOCOCCAL VACCINES (ACWY) Aged Out No longer eligible based on patient's age to complete this topic MENINGOCOCCAL VACCINES (B) Aged Out N o longer eligible based on patient's age to complete this topic Medical Devices Not on file Procedures Procedure Name Priority Date/Time Associated Diagnosis Comments HEMOGLOBIN A1C Routine 04/19/2023 3:59 AM EDT from Last 3 Months or Most Recently Relevant to Health Maintenance Results * (ABNORMAL) Hemoglobin A1c (04/19/2023 3:59 AM EDT) HEMOGLOBIN A1C 6.6(H) 4.3 - 5.8 % [facility] 04/19/2023 3:59 AM EDT 04/19/2023 5:54 AM EDT us Geovanni Mercado PA-C LAB BLOOD ORDERABLES Fin al Result Performing Organization Address City/State/[facility] Co de Phone Number [address] [address] from Last 3 Months or Most Recently Relevant to Health Maintenance Advance Directives For more information, please contact: [phone] (9AM - 5PM [place], Thursday-Thursday) Documents on File Type Date Recorded Patient Reheater Helper Expl anation Healthcare Proxy 04/24/2023 12:06 PM * Full Code (Latest Code Status on File) Date Activated Date Inactivated Comments 04/19/2023 3:46 AM Question Answer Comments Code Status Confirmed With: Patient Code Status Communicated To: Inpatient Attending Care Teams Drafter Landscape Relationship Specialty Start Date End Date Javier Benoit MD [address] [place] [address] [place] [address] PCP - General Internal Medicine 04/19/23 Additional Source Comments The information contained in this document represents components of the legal health record. It is not the complete legal health record.[facility]
--- OUTSIDE RECORDS SUMMARY | 2025-06-26 19:26 | XMS_ITS | Encounter Summary ---
Author Organization [facility] Address [address] [address] Phone Care Team Providers Care Cornetist Name Role Phone Javier Benoit MD Primary Care Provider [phone] Encounter Details Date Type Department Care Team (Late st Contact Info) Description 04/19/2023 Procedure Pass [facility], Ct Scan - [address] [address] Social History Tobacco Use Types Packs/Day Years Used Date Smoking Tobacco: Never Smokeless Tobacco: Never Education Answer Date Recorded Are you interested in more education? Not on alee e 04/19/2023 Are you concerned about learning? Not on file 04/19/2023 No 04/19/2023 No 04/19/2023 Digital Access Answer Date Recorded No 04/19/2023 No 04/19/2023 Reliable internet access at home? Not on file 04/19/2023 Device with a working camera? Not on file Sex and Gender Information Value Date Recorded Sex Assigned at Male 01/26/2024 8:32 AM EDT Legal Sex Male 12:51 AM EDT Gender Identity Male 01/26/2024 8:32 AM EDT Sexual Orientation Straight 01/26/2024 8: 32 AM EDT documented as of this encounter Functional Status * Calculated C-SSRS Risk Score (Lifetime/Recent) Answer Date of Assessment Author No Risk Indicated 04/19/2023 5:00 AM EDT Iggy Carter, RN * [place] Suicide Severity Rating Scale (Screener/Recent Self-Report) Question Answer Date of Assessment Author 1. Wish to be (Past 1 Month) No 023 5:00 AM EDT Iggy Carter, RN 2. Non-Specific Active Suici meghna Thoughts (Past 1 Month) No 04/19/2023 5:00 AM EDT Diamond Carter RN 6. Suicidal Behavior (Lifetime) No 3 5:00 AM EDT Iggy Carter, RN documented as of this encounter Plan of Treatment Not on file documented as of this encounter Visit Diagnoses Not on filedocumented in this encounter Additional Health Concerns Infection Onset Date Last Indicated Resolved Time CoV-Risk Comment:Per note documentation 04/19/2023 04/19/2023 4:48 PM EDT CoV-Risk 03/14/2024 03/14/2024 03/25/2024 1:21 AM EDT documented as of this encounter Care Teams Cornetist Relationship Specialty Start Date End Date Javier Benoit MD [address] [place] [address] [place] [address] PCP - General Internal Medicine 04/19/23 documented as of this encounter Additional Source Comments The information contained in this document represents components of the legal health record. It is not the complete legal health record.[facility]
--- OUTSIDE RECORDS SUMMARY | 2025-06-26 19:26 | XMS_ITS | Encounter Summary ---
Author Organization [facility] Address [address] [address] Phone Care Team Providers Care Excel Developer Name Role Phone Javier Benoit MD Primary Care Provider [phone] Encounter Details Date Type Department Care Team (Late st Contact Info) Description 01/26/2024 Procedure Pass [facility], Ct Scan - [address] [address] Social History Tobacco Use Types Packs/Day Years [...] Date of Assessment Author No Risk Indicated 01/26/2024 8:29 AM EDT Ludivina Schafer RN * [place] Suicide Severity Rating Scale (Screener/Recent Self-Report) Question Answer Date of Assessment Author 1. Wish to be (Past 1 Month) No 024 8:29 AM EDT Ludivina Peters, CHRISTIAN 2. Non-Specific Active Suici meghna Thoughts (Past 1 Month) No 01/26/2024 8:29 AM EDT Ludivina Peters RN 6. Suicidal Behavior (Lifetime) No 8:29 AM EDT Ludivina Peters RN documented as of this encounter Plan of Treatment Not on file documented as of this encounter Visit Diagnoses Not on filedocumented in this encounter Additional Health Concerns Infection Onset Date Last Indicated Resolved Time CoV-Risk 03/14/2024 03/14/2024 03/25/2024 1:21 AM EDT documented as of this encounter Care Teams Excel Developer Relationship Specialty Start Date End Date Javier Benoit MD [address] [place] [address] [place] [address] PCP - General Internal Medicine 04/19/23 documented as of this encounter Additional Source Comments The information contained in this document represents components of the legal health record. It is not the complete legal health record.[facility]
== END 2025-06-26 15:28 | disposition home or self-care (01) ==
PROVIDERS: Visit Provider Nurse Practitioner Family
DX: J45.41 Moderate persistent asthma with (acute) exacerbation (principal)

== ENCOUNTER → 2025-06-26 14:06 | Outpatient (BNVA) | payer OTHER, SELFPAY | PROVIDERS: Visit Provider Nurse Practitioner Family | DX: J45.41 Moderate persistent asthma with (acute) exacerbation (principal) | CPT/HCPCS: 94640 ==

== ENCOUNTER 2025-08-18 14:44 | Outpatient (AMB) | payer OTHER, SELFPAY ==
[2025-08-18 15:56] VITALS: BP 138/81; PULSE 93; RESP 16; TEMP 36.7; O2SAT 96; BMI 63.5
--- NOTE | 2025-08-18 15:56 | A.OFFPC_ITS ---
Vital Signs 08/18/25 15:56 Height 5 ft 3 in Weight 358 lb 4 oz BMI 63.5 BP 138/81 Blood Pressure Location Lt brachial Position Sitting Respiration 16 Pulse 93 Pulse Source Pulse Oximeter Temp 98.1 F Temp Source Oral Pulse Oximetry (%) 96 Oxygen Delivery Method Room Air Intake Visit Reasons: FITNESS COORDINATOR - Establish Care Desk Attendant Required: No Accompanied by: Spouse Allergies acetaminophen (Vicodin) Allergy (Severe, Verified 08/20/25 02:39) shortness of breath hydrocodone (Vicodin) Allergy (Severe, Verified 08/20/25 02:39) shortness of breath hydromorphone (From Dilaudid) Allergy (Severe, Verified 08/20/25 02:39) UNKNOWN, Tongue swelling morphine Allergy (Verified 08/20/25 02:39) Unknown From VICODIN Allergy (Severe, Uncoded 08/20/25 02:39) ANAPHYLAXIS Hydrocodone-Acetaminophen Allergy (Severe, Uncoded 08/20/25 02:39) itchiness SEASONAL ALLERGIES Allergy (Severe, Uncoded 08/20/25 02:39) Wheezing Medication List - Last Reconciled 08/20/25 by Wolfgang Newman MD albuterol sulfate 90 mcg/actuation 2 puffs inhalation Q4-6H PRN 30 days fluticasone propion-salmeterol 45-21 mcg/actuation (Advair HFA) 2 puffs inhalation BID montelukast 10 mg PO BEDTIME Tobacco use date assessed: 08/18/25 Dental Screening Dental Screen Date: 08/18/25 HPI HPI Comments History of Present Illness Details History of Present Illness The patient is a 55 year old male presenting for an initial visit for management of asthma Asthma: The patient was diagnosed with asthma in 2018 and has a history of hospitalizations and urgent care visits for exacerbations. Two months ago, he visited an urgent care for symptoms, where the provider questioned whether he had asthma or COPD but provided treatment. His symptoms have been doing well since he started a new steroid inhaler (purple one), which he uses only at nighttime, in addition to his albuterol (red) rescue inhaler. His symptoms may be triggered by his daughter's guinea pig. Anxiety Disorder: The patient reports experiencing panic attacks, particularly when he has to wear a CPAP mask or undergoes a CT scan. He also cannot lie on his back for long periods and sleeps in a recliner due to this. Chronic Sinusitis: He reports chronic, year-round nasal stuffiness and has been told his nasal passages are very dry. He has seen an ENT specialist in the past who performed a nasal endoscopy. A previous trial of Flonase caused significant nosebleeds. Suspected Sleep Apnea: The patient is supposed to use a CPAP machine for sleep apnea but is unable to tolerate it due to panic attacks. He underwent a sleep study in the past, but the results were inconclusive as he did not get enough sleep. Integumentary Disorder of Feet: For about a year, the patient has had an issue with the skin on his feet, which become extremely dry, crack, peel, and bleed. A nurse previously suggested it might be severe eczema, and the patient has tried using lotions. Obesity: The patient's weight was cited as a risk factor making tonsil surgery too risky in the past. He and his have expressed interest in joining a weight loss clinic. Surgical History: - Umbilical hernia repair with mesh, per formed recently. Medications: - Albuterol sulfate inhaler (red), used as needed. - Steroid inhaler (Advair, purple), used at nighttime. Social History: - Family Status: , and has a 24-y ear-old daughter and a 27-year-old son. - Housing/Environment: Has a pet guinea pig in the house, which may be an asthma trigger. - Functional Status: Sleeps in a recline r as he cannot lie on his back for long periods due to panic attacks. - Weight Management: Expresses desire to enroll in a weight loss clinic. Family History: - Diabetes: Reports diabetes runs on bot h sides of his family. Diagnostic Results: - Past sleep study: Inconclusive due to insufficient sleep data. Past Medical History - Asthma, diagnosed in 2018 with a histo ry of hospitalizations. - Anxiety disorder with panic attacks. - Chronic sinusitis. - Obesity. - History of constipation, currently res olved. Health Maintenance - The patient has not had recent blood w ork and does not know when it was last performed. - The patient, age 55, has not had a col onoscopy for colon cancer screening. - Patient has opted for Cologuard testin g. - Discussed enrollment in a weight loss clinic for obesity management. COUNTS INCLUDE 234 BEDS AT THE [facility] Medical History (Updated 08/20/25 @ 15:34 by Wolfgang Newman MD) Stasis dermatitis Chronic sinusitis Anxiety Moderate persistent asthma Asthma with acute exacerbation Incarcerated ventral hernia (01/27/25) Small bowel obstruction Morbid obesity Super obesity Nephrolithiasis Bronchitis Obesity Surgical History S/P recurrent ventral herniorrhaphy (01/27/25) Family History Mother No problems noted. Father Heart attack Social History Household Members: Spouse Housing: House Do you presently have visiting nurse or other home services: No Alcohol intake: former Comment: unknown room Patient Tobacco Use Status: Never used Tobacco Smoked in Last 30 Days: No e-Cigarette/Vaping Use: Never Used Second Hand Smoke Exposure: Yes Use of substances other than those prescribed or required for medical reasons: No Advance Directives: Yes Advance Directives on File: Yes Advance Directives Date on File: 01/27/25 Do you have a plan to hurt others: No Plan service: No Current occupational status: employed and disabled Cognitive needs: No Hearing needs: No Vision needs: Yes (Glasses) Questionnaire PHQ-9 Over the last 2 weeks, how often have you been bothered by any of the following problems? 1. Little interest or pleasure in doing things: not at all 2. Feeling down, depressed, or hopeless: not at all 3. Trouble falling or staying asleep, or sleeping too much: nearly every day 4. Feeling tired or having little energy: not at all 5. Poor appetite or overeating: not at all 6. Feeling bad about yourself - or that you are a failure or have let yourself or your family down: not at all 7. Trouble concentrating on things, such as reading the newspaper or watching television: not at all 8. Moving or speaking so slowly that other people could have noticed. Or the opposite - being so fidgety or restless that you have been moving around a lot more than usual: not at all 9. Thoughts that you would be better off or of hurting yourself in some way: not at all Total score: 3 Depression Screening Interpretation: Negative Depression Screening Done: Yes Source: Developed by Drs. Rina Zee Kurt Kroenke and colleagues, with an educational flako from [employer]). Thrive Questionnaire Date Thrive assessed: 01/28/25 I am a: Patient What is your living situation today?: I have a steady place to live Within the past 12 months, did the food you bought not last and you didn't have the money to get more?: Sometimes True Within the past 12 months, did you worry whether your food would run out before you got money to buy more?: Never true Do you have trouble paying for medicines?: No Do you have trouble getting transportation to medical appointments?: No Do you have trouble paying your heating and electricity bill?: Yes Do you have trouble taking care of your child, family member or friend?: No Are you currently unemployed and looking for a job?: No Are you interested in more education?: No Please select the resources that you would like help with: None Currently or been in a relationship where the following occur: No concerns reported THRIVE Score: 2 AUDIT C Alcohol Use Questionnaire (AUDIT-C) 1. How often do you have a drink containing alcohol?: Never Total Score: 0 SHRUTHI-7 AMB Questionnaire SHRUTHI-7 Date SHRUTHI - 7 assessed: 12/19/24 Feeling nervous, anxious, or on edge: 0 = Not at all Not being able to stop or control worryin = Not at all Worrying too much about different things: 0 = Not at all Trouble relaxin = Several days Being so restless that it is hard to sit still: 0 = Not at all Becoming easily annoyed or irritable: 0 = Not at all Feeling afraid as if something awful might happen: 0 = Not at all Total SHRUTHI-7 score (0-4 normal; 5-9 mild; 10-14 moderate; 15-21 severe): 1 Source: Developed by Drs. Vimal Santos, Rina Sibley, Pako Gee and colleagues, with an educational flako from [employer]). Review of Systems Narrative Review of Systems - Cardiovascular: Reports occasional feet swelling. - Respiratory: Reports a history of asthma with attacks, currently feeling well. - ENT: Reports being always stuffed up and frequent issues with blocked ears. - GI: Denies current constipation. - Integumentary: Reports skin on feet is extremely dry, cracks, peels, and bleeds. - Psychiatric: Reports experiencing anxiety and panic attacks. 10-point ROS reviewed and negative except as noted in HPI Physical exam (Primary Care) Vital Signs: Last Vital Signs Temp 98.1 F 08/18/25 15:56 Pulse 93 08/18/25 15:56 Resp 16 08/18/25 15:56 BP 138/81 08/18/25 15:56 Pulse Ox 96 08/18/25 15:56 Oxygen Delivery Method Room Air 08/18/25 15:56 BMI result Body Mass Index 63.5 Tobacco/Smoking Status: Tobacco use Status Tobacco use date assessed 08/18/25 08/18/25 16:00 Patient Tobacco Use Status Never used Tobacco 08/18/25 16:00 e-Cigarette/Vaping Use Never Used 08/18/25 16:00 PHQ-9: PHQ-9 Score PHQ-9: Total score 3 08/18/25 16:01 Depression Screening Interpretation: Negative Thrive Assessment: Date of Thrive Assessment Date Thrive assessed 01/28/25 08/18/25 16:00 Currently or been in a relationship where the following occur: No concerns reported Narrative Physical Exam General: Well-appearing, in no acute distress. Vital signs: wnl HEENT: Normocephalic, atraumatic. PERRLA, EOMI. Conjunctiva clear, sclera anicteric. Oropharynx clear, mucous membranes moist. TMs intact bilaterally. Nasal passages dry with history of nosebleeds from Flonase use. Neck: Supple, no lymphadenopathy, no thyromegaly, no JVD or carotid bruits. Cardiovascular: RRR, normal S1/S2, no murmurs, rubs, or gallops. Peripheral pulses 2+ and symmetric. No edema. Respiratory: Lungs clear to auscultation bilaterally, no wheezes, rales, or rhonchi. Normal effort. History of asthma with use of albuterol and steroid inhalers. Abdomen: Soft, non-tender, non-distended. Normoactive bowel sounds. No hepatosplenomegaly, no masses. pannus MSK: Full range of motion, no joint swelling or deformity. Normal gait. Skin: Warm, dry, intact. No rashes, lesions, or pallor. Feet with severe dryness, cracking, and peeling, possibly venous circulation issue. Neuro: Alert and oriented x3. Cranial nerves II-XII intact. Strength 5/5 throughout. Sensation intact. Reflexes 2+ symmetric. Normal coordination and gait. Psych: Appropriate mood and affect. Normal judgment and insight. History of anxiety and panic attacks. Coding Level of Care Code New Pt Level 4 (50965) Diagnoses Moderate persistent asthma J45.40 MARLYN (obstructive sleep apnea) G47.33 Morbid obesity E66.01 Panic attack F41.0 Anxiety F41.9 Chronic sinusitis J32.9 Stasis dermatitis I87.2 Assessment & Plan Assessment & Plan (1) Moderate persistent asthma: Code(s): J45.40 - Moderate persistent asthma, uncomplicated Category: Medical (2) MARLYN (obstructive sleep apnea): Code(s): G47.33 - Obstructive sleep apnea (adult) (pediatric) Category: Medical (3) Morbid obesity: Code(s): E66.01 - Morbid (severe) obesity due to excess calories Category: Medical (4) Panic attack: Code(s): F41.0 - Panic disorder [episodic paroxysmal anxiety] Category: Medical (5) Anxiety: Code(s): F41.9 - Anxiety disorder, unspecified Category: Medical (6) Chronic sinusitis: Code(s): J32.9 - Chronic sinusitis, unspecified Category: Medical (7) Stasis dermatitis: Code(s): I87.2 - Venous insufficiency (chronic) (peripheral) Category: Medical Plan Consent The risks, benefits, and alternatives for colon cancer screening were discussed, including an invasive colonoscopy which is valid for 10 years if normal, and a non-invasive at-home stool test (Cologuard) which is valid for 3 years. The patient understood the options and consented to proceed with the Cologuard test. Patient was informed and verbally consented to the use of an ambient scribe for clinic note documentation during this visit. Plan 1. Asthma - Prescribed Advair (fluticasone/salmeterol) inhaler two puffs twice a day for maintenance. - Prescribed Albuterol inhaler for rescue use only for difficulty breathing. - Prescribed Montelukast to be taken at night to address allergic components of asthma. 2. Anxiety anxiety due to morbid obesity affecting his sleep and marlyn 3. Chronic Sinusitis - Prescribed a trial of azelastine nasal spray to manage sinus symptoms, as Flonase previously caused nosebleeds. 4. Suspected Obstructive Sleep Apnea - Ordered a home sleep study for evaluation. 5. Venous Stasis Ulceration - The condition is considered a venous circulation problem rather than eczema. - Prescribed Silvadene cream to be applied twice daily to prevent infection and promote healing. 6. Preventative Care - Ordered comprehensive blood work to establish a baseline. - Ordered a Cologuard test for colorectal cancer screening. 7. Obesity - Plan to refer to the weight loss clinic for a comprehensive approach after the follow-up visit. 8. Follow-Up - Schedule a follow-up appointment in two weeks to review test results and as sess progress. Discussion Notes I had a detailed discussion with the patient and his regarding his multiple medical issues. . We reviewed his asthma management, and I educated him on the difference between a daily maintenance inhaler (steroid) and a rescue inhaler (albuterol), emphasizing that the maintenance inhaler should be used twice daily to control inflammation, while the rescue inhaler is for acute symptoms only. I explained the rationale for adding montelukast for the allergic component of his asthma and switching his nasal spray to azelastine due to his history of epistaxis with Flonase. I informed him that my assessment of his foot condition is that it is more likely related to venous circulation issues than eczema, and I prescribed Silvadene cream to promote healing and prevent infection. I ordered a home sleep study to evaluate for sleep apnea and baseline bloodwork. We agreed to address his weight with a referral to the weight loss clinic after we manage his more acute issues. I instructed him to follow up in two weeks to review all results and progress. We discussed options for colon cancer screening, and he chose the at-home Cologuard test over a colonoscopy. Patient Instructions - Use your purple maintenance inhaler (Advair) with two puffs in the morning and two puffs at night, every day. - Use your red rescue inhaler (albuterol) only if you are having difficulty breathing. - Take one Montelukast tablet by mouth every night. - Use the azelastine nasal spray for your stuffy nose as directed. - For your feet, clean the affected areas and apply a thick layer of Silvadene cream twice a day. - You will receive kits at home for a Cologuard stool test and a home sleep study. - Please follow the instructions included and mail the kits back. - Please go to a lab to have blood work done. - If your feet swell, elevate them. - Schedule a follow-up appointment in two weeks. Medical Decision Making This 55-year-old male presents for an initial visit with multiple, interconnected complaints, including poorly controlled asthma, anxiety, morbid obesity and stasis dermatitis His asthma, despite a history of hospitalizations, seems to be responding to a steroid inhaler, though he has been using it incorrectly. The plan is to optimize his regimen with scheduled fluticasone/salmeterol for maintenance and montelukast for a significant allergic component, while reinforcing albuterol for rescue use only. Given his history of nasal dryness and epistaxis with Flonase, a trial of azelastine nasal spray is a safer alternative for his chronic rhinitis. The skin condition on his feet is more consistent with venous stasis changes due to his obesity than eczema, posing a risk for ulceration and infection. Topical Silvadene cream is initiated for its barrier and antimicrobial properties. Due to his anxiety with medical equipment and a prior inconclusive in-lab study, a home sleep study is a more appropriate next step to diagnose suspected MARLYN. For health maintenance, we addressed his overdue colorectal cancer screening; Cologuard was chosen over colonoscopy to accommodate his anxiety. Baseline lab work is ordered, and a referral to the weight loss clinic is planned for the near future, recognizing obesity as a contributing factor to many of his conditions. A two-week follow-up will be crucial to review results and titrate therapy. Total time spent caring for the patient today was 30 minutes. This includes time spent before the visit reviewing the chart, time spent documenting, and time spent reviewing laboratory results, diagnostic imaging, medications, performing a medically necessary evaluation, counseling on diagnoses, care coordination Orders: Referrals Cologuard Test Z12.11 - Encounter for screening for malignant neoplasm of colon, Z12.12 - Encounter for screening for malignant neoplasm of rectum Medical Weight Management Referral E66.01 - Morbid (severe) obesity due to excess calories Medications: New montelukast 10 mg PO BEDTIME 90 tabs 0RF azelastine administer into each nostril 2 sprays intranasal BID 30 mL 0RF Discontinued ipratropium-albuterol 0.5 mg-3 mg(2.5 mg base)/3 mL Discontinued Reason: Doctor's Order 3 mL inhalation Q4-6H PRN 90 mL 1RF wheezing J45.41 - Moderate persistent asthma with (acute) exacerbation albuterol sulfate Discontinued Reason: Change Referral Type 2.5 mg (3 mL) inhalation Q4H PRN 90 mL 3RF bronchospasm prednisone Discontinued Reason: Doctor's Order 50 mg PO DAILY 5 days 5 tabs 0RF J45.41 - Moderate persistent asthma with (acute) exacerbation azithromycin Discontinued Reason: Ancillary Entered New Order 500 mg PO DAILY 3 days 3 tabs 0RF J45.41 - Moderate persistent asthma with (acute) exacerbation
--- OUTSIDE RECORDS SUMMARY | 2025-08-18 16:11 | XMS_ITS | Encounter Summary ---
Author Organization [facility] Address [address] [address] Phone Care Team Providers Care Chief Of Staff Doctor Name Role Phone Javier Benoti MD Primary Care Provider [phone] Encounter Details Date Type Department Care Team (Late st Contact Info) Description 04/19/2023 Procedure Pass [facility], Ct Scan - [address] [address] Social History Tobacco Use Types Packs/Day Years [...] 5:00 AM EDT Iggy Carter, RN * [place] Suicide Severity Rating Scale (Screener/Recent Self-Report) Question [...] documented as of this encounter Care Teams Chief Of Staff Doctor Relationship Specialty Start Date End Date Javier Benoit MD [address] [place] [address] [place] [address] PCP - General Internal Medicine 04/19/23 documented as of this encounter Additional Source Comments The information contained in this document represents components of the legal health record. It is not the complete legal health record.[facility]
--- OUTSIDE RECORDS SUMMARY | 2025-08-18 16:11 | XMS_ITS | Clinical Summary ---
Author Organization [facility] Address [address] [address] Phone Care Team Providers Care Community Resource Consultant Name Role Phone Javier Benoit MD Primary Care Provider [phone] Allergies Active Allergy Reactions Criticality Noted Date Comments Hydromorphone 04/19/2023 Morphine 04/19/2023 Oxycodone-Acetaminophen 04/19/2023 Medications albuterol 90 mcg/actuation inhaler Inhale 2 puffs into the lungs every 4 (four) hours as needed (bronchospasm). [facility] pharmacy instructions: 2 puffs every 4-6 [...] FOBT 2015 SIGMOIDOSCOPY 2015 VIRTUAL COLONOSCOPY 2015 RSV VACCINE (1 - Risk 50-74 years 1-dose series) 2020 ZOSTER VACCINES (1 of 2) 2020 DIABETIC [...] HEMOGLOBIN A1C 6.6(H) 4.3 - 5.8 % [facility] 04/19/2023 3:59 AM EDT 04/19/2023 5:54 AM EDT us Geovanni Mercado PA-C LAB BLOOD BKR ORDERABLES Final Result [address] [address] from Last 3 Months or Most Recently Relevant to Health Maintenance Advance Directives For more information, please contact: [phone] (9AM - 5PM [place], Thursday-Thursday) Documents on File Type Date Recorded Patient Superintendent Overhead Distribution Expl anation Healthcare Proxy 04/24/2023 12:06 PM * Full Code (Latest Code Status on File) Date Activated Date Inactivated Comments 04/19/2023 3:46 AM Question Answer Comments Code Status Confirmed With: Patient Code Status Communicated To: Inpatient Attending Care Teams Community Resource Consultant Relationship Specialty Start Date End Date Javier Benoit MD [address] [place] [address] [place] [address] PCP - General Internal Medicine 04/19/23 Additional Source Comments The information contained in this document represents components of the legal health record. It is not the complete legal health record.[facility]
--- OUTSIDE RECORDS SUMMARY | 2025-08-18 16:11 | XMS_ITS | Encounter Summary ---
Author Organization [facility] Address [address] [address] Phone Care Team Providers Care News Content Specialist Name Role Phone Javier Benoit MD Primary Care Provider [phone] Encounter Details Date Type Department Care Team (Late st Contact Info) Description 01/26/2024 Procedure Pass [facility], Ct Scan - [address] [address] Social History Tobacco Use Types Packs/Day Years [...] 8:29 AM EDT Ludivina Schafer RN * [place] Suicide Severity Rating Scale (Screener/Recent Self-Report) Question [...] documented as of this encounter Care Teams News Content Specialist Relationship Specialty Start Date End Date Javier Benoit MD [address] [place] [address] [place] [address] PCP - General Internal Medicine 04/19/23 documented as of this encounter Additional Source Comments The information contained in this document represents components of the legal health record. It is not the complete legal health record.[facility]
== END 2025-08-18 16:53 | disposition home or self-care (01) ==
LOC: HO.HMCFMS 14:45
PROVIDERS: Visit Provider Student in an Organized Health Care Education/Training Program
DX: J45.40 Moderate persistent asthma, uncomplicated (principal); G47.33 Obstructive sleep apnea (adult) (pediatric); E66.01 Morbid (severe) obesity due to excess calories; F41.0 Panic disorder [episodic paroxysmal anxiety]; F41.9 Anxiety disorder, unspecified; J32.9 Chronic sinusitis, unspecified; I87.2 Venous insufficiency (chronic) (peripheral)

== ENCOUNTER 2025-08-20 02:25 | Emergency (ER) | payer OTHER, SELFPAY ==
--- NOTE | ~2025-08-20 | XR_ITS ---
CLINICAL HISTORY: sob 1 view chest x-ray Comparison: CR/SR - XR CHEST 2 VIEWS - 11/22/22 22:43 EST Findings: No consolidation or effusion. There is no pneumothorax Heart size is normal. No acute fracture. IMPRESSION: 1. No acute findings. This document has been electronically signed by: Jordan Maloney MD on 08/20/2025 05:23:14
[2025-08-20 02:28] VITALS: BP 122/79; BP 150/80; PULSE 106; PULSE 112; RESP 20; O2SAT 95; O2SAT 97; BMI 79.7
[2025-08-20 02:38] VITALS: PULSE 107; RESP 18; O2SAT 98
--- NOTE | 2025-08-20 02:39 | ECG_ITS ---
Test Reason : SOB Blood Pressure : */* mmHG Vent. Rate : 102 BPM Atrial Rate : 102 BPM P-R Int : 140 ms QRS Dur : 82 ms QT Int : 342 ms P-R-T Axes : 45 -3 12 degrees QTcB Int : 445 ms Sinus tachycardia Inferior infarct , age undetermined Abnormal ECG When compared with ECG of 22-Nov-2022 22:50, No significant change was found Referred By: Jennifer Crow Electronically Signed By: Mickey Erickson
--- NOTE | 2025-08-20 02:40 | ED_ITS ---
HPI - SOB/Dyspnea General Chief Complaint: Dyspnea Stated Complaint: WOKE UP W/DIFF BREATHING,ALB INH NO RELIEF Time Seen by Provider: 08/20/25 02:26 Source: patient and EMS Mode of arrival: EMS Limitations: other History of Present Illness ED Provider: Dr. Jennifer Crow HPI Narrative: Patient comes to the emergency room via ambulance from home. Patient complaining of shortness of breath that woke him up from sleep. Patient states that he has history of asthma, has never smoked. Patient denies any history of CHF. Patient states that when he called EMS, they gave him a DuoNeb and started breathing a bit better. Patient still feeling tight. No chest pain. Patient denies any recent URIs to his knowledge. Related Data Previous Rx's ?Medication ?Instructions ?Recorded fluticasone propionate 45 2 puff inhalation BID #12 gr ams 06/26/25 mcg-salmeterol 21 mcg/actuation HFA inhaler (Advair HFA) albuterol sulfate 90 mcg/actuation 2 puff inhalation Q 4-6H PRN muscle 07/07/25 aerosol inhaler spasm 30 days #8.5 grams montelukast 10 mg tablet 10 mg PO BEDTIME #90 tabs prednisone 50 mg tablet 50 mg PO DAILY #6 tabs 08/20 Allergies Allergy/AdvReac Type Severity Reaction Status Date / Time acetaminophen (Vicodin) Allergy Severe shortness Verified 08/20/25 02:39 of breath hydrocodone (Vicodin) Allergy Severe shortness Verified 08/20/25 02:39 of breath hydromorphone (From Dilaudid) Allergy Severe UNKNOWN, Verified 08/20/25 02:39 Tongue swelling morphine Allergy Unknown Verified 08/20/25 02:39 From VICODIN Allergy Severe ANAPHYLAXIS Uncoded 08/20/25 02:39 Hydrocodone-Acetaminophen Allergy Severe itchiness Uncoded 08/20/25 02:39 SEASONAL ALLERGIES Allergy Severe Wheezing Uncoded 08/20/25 02:39 Review of Systems 2 Review of Systems: Constitutional : No Weight loss, No Fever, No Chills, No Night Sweats, No Fatigue, No Malaise ENT/Mouth : No Hearing loss, No Ear Pain, No Nasal Congestion, No Sinus Pain, No Hoarseness, No sore throat, No Rhinorrhea, No Swallowing Difficulty Eyes: No Eye Pain, No Swelling, No Redness, No Foreign Body, No Discharge, No Vision Changes Cardiovascular : No Chest Pain, no lower extremity edema, no palpitations Respiratory : No cough, sudden onset of wheezing and shortness of breath and chest tightness Gastrointestinal : No Nausea, No Vomiting, No Diarrhea, No Constipation, No abdominal Pain, No Hematochezia, No Melena Genitourinary : no irregular bleeding, No Dysuria, No Urinary Frequency, No Hematuria, No Urinary Incontinence, No Urgency, No Flank Pain, No Urinary Flow Changes, No Hesitancy Musculoskeletal : No joint pain, No Myalgias, No Joint Swelling Skin : No Skin Lesions, No rash Neuro : No Weakness, No Numbness, No Paresthesias, No Loss of Consciousness, No Dizziness, No Headache Psych : No Anxiety/Panic, No Depression, No SI/HI/AH/VH, No Social Issues, Heme/Lymph: No Bruising, No Bleeding,No Lymphadenopathy Endocrine : No Polyuria, No Polydipsia, No Temperature Intolerance [facility] Past Medical History Medical History Asthma with acute exacerbation Incarcerated ventral hernia (01/27/25) Small bowel obstruction Morbid obesity Super obesity Nephrolithiasis Bronchitis Obesity Surgical History S/P recurrent ventral herniorrhaphy (01/27/25) Family History Family History Mother No problems noted. Father Heart attack Social History Social History Household Members: Spouse Housing: House Do you presently have visiting nurse or other home services: No Alcohol intake: former Comment: unknown room Patient Tobacco Use Status: Never used Tobacco e-Cigarette/Vaping Use: Never Used Second Hand Smoke Exposure: Yes Advance Directives: Yes Advance Directives on File: Yes Advance Directives Date on File: 01/27/25 Do you have a plan to hurt others: No Plan service: No Current occupational status: employed and disabled Cognitive needs: No Hearing needs: No Vision needs: Yes (Glasses) Physical Exam 2 Exam: Exam: Appearance: Alert. Oriented X3. In [id number] respiratory distress Eyes: Pupils equal, round and reactive to light. ENT: Pharynx normal. Neck: Normal inspection. Neck supple. No lymph nodes noted. No crepitus CVS: Normal heart rate and rhythm. Pulses normal. Normal S1 and S2 Respiratory: Bilateral wheezing, tachypneic, moderate air movement Abdomen: Soft and nontender. No rigidity. No distention. Skin: Skin warm and dry. Normal skin color. Normal skin turgor. Extremities: No lower extremity edema. No Lacerations. No Rash Neuro: Oriented X 3. No motor deficit. No sensory deficit. Moving all extremities. No slurred speech. CN 2 through 12 grossly intact Psych: calm, cooperative, normal affect Vital Signs: Vital Signs: Last Vital Signs Pulse 107 H 08/20/25 02:38 Resp 18 08/20/25 02:38 BP 122/79 08/20/25 02:28 Pulse Ox 95 08/20/25 02:28 O2 Del Method Room Air 08/20/25 02:28 BMI result Body Mass Index 79.7 Course Course Course Narrative: Patient received a DuoNeb EN route to the hospital. At this time, patient receiving IV Solu-Medrol, bronchodilators All of patient's labs and imaging pending Medications Administered Discontinued Medications Generic Name Dose Route Start Last Admin Trade Name Freq PRN Reason Stop Dose Admin Albuterol Sulfate 7.5 mg/ 10 mg 08/20/25 02:32 08/20/25 02:45 Albuterol Sulfate 2.5 mg INHALE 08/20/25 02:33 10 mg ONCE ONE Administration Diazepam 5 mg 08/20/25 03:02 08/20/25 03:05 Diazepam 10 Mg/2 Ml Cartridge IVPUSH 08/20/25 03:03 5 mg STAT STA Administration Magnesium Sulfate 2 gm in 50 mls @ 150 mls/hr 08/20/25 02:35 08/20/25 03:09 Magnesium Sulfate/H2o IV 08/20/25 02:54 Infused ONCE ONE Infusion Methylprednisolone Sodium Succinate 125 mg 08/20/25 02:35 08/20/25 02:49 Methylprednisolone Sod Succ 125 Mg/2 Ml Vial IVPUSH 08/20/25 02:36 125 mg ONCE ONE Administration Medical Decision Making Medical Decision Making [facility] Narrative: My interpretation of labs: No significant abnormality in patient's hematology or chemistry, blood gases show a pCO2 of 51, however pH is normal and bicarb elevated, compensated. Serology negative for influenza COVID and RSV. I was informed by the patient's nurses that the patient had a panic attack. Patient was given 5 mg of IV diazepam. Panic attack improved significantly. This x-ray does not show any acute abnormality Patient was ambulated around the emergency room, oxygen saturation stayed at 95% and above. On physical exam prior to discharge, patient has completely normal air movement and no wheezing. Patient states that he has a enough inhalers at home. Prednisone will be sent to his pharmacy, patient instructed to take the 1st dose of prednisone in 6 hours from now Differential Diagnosis Differential Diagnoses: The differential diagnosis associated with the presentation includes (Asthma exacerbation, viral illness, influenza, COVID, new onset CHF) Admission/Observation Consideration of admission/observation: Escalation of care including admission/observation considered (Given patient's initial presentation, observation/admission was considered.) Lab Data MDM Lab Attestation statement: I reviewed the patient's lab results. 08/20/25 02:46 08/20/25 02:47 Labs: Lab Results 08/20/25 08/20/25 08/20/25 Range/Units 02:30 02:46 02:47 WBC 8.6 (4.8-10.8) X10*3/uL RBC 4.72 (4.60-5.80) X10*6/uL Hgb 13.1 L (14.0-18.0) g/dl Hct 41.0 L (42.0-52.0) % MCV 86.9 (80.0-98.0) fL MCH 27.8 (27.0-33.0) pg MCHC 32.0 (31.0-36.0) g/dl RDW 12.8 (11.0-16.0) % Plt Count 247 (160-400) X10*3/uL MPV 9.9 (9.4-12.4) fL Immature Gran % (Auto) 0.5 H (0.0-0.4) % Neut % (Auto) 69.3 (45-73) % Lymph % (Auto) 16.0 L (20-40) % [place] % (Auto) 7.5 (2-11) % Eos % (Auto) 6.4 H (0-4) % Baso % (Auto) 0.3 (0-2) % Lymph # (Auto) 1.4 (1.2-4.9) X10*3/uL [place] # (Auto) 0.7 (0.1-1.2) X10*3/uL Eos # (Auto) 0.6 H (0.0-0.4) X10*3/uL Baso # (Auto) 0.0 (0.0-0.2) X10*3/uL Abs Immat Gran (auto) 0.04 H (0.00-0.03) X10*3/uL Absolute Neuts (auto) 6.0 (2.0-8.3) x10*3/uL Absolute Nucleated RBC 0.000 (0.0-0.012) X10*3/uL Nucleated RBC % (auto) 0.0 (0.0-0.2) /100WBC VBG pH (7.32-7.43) VBG pCO2 mmHg VBG pO2 mmHg VBG HCO3 (22-26) mmol/L VBG O2 Saturation % VBG Base Excess mmol/L Sodium 140 (135-145) mmol/L Potassium 3.9 (3.3-5.1) mmol/L Chloride 106 (96-108) mmol/L Carbon Dioxide 27 (22-29) mmol/L Anion Gap 11 L (12-20) BUN 16 (9-16) mg/dL Creatinine 0.81 (0.5-1.4) mg/dL Estim Creat Clear Calc 168.7 Estimated GFR > 60 POC Glucose 233 H (60-115) mg/dL Random Glucose 244 H (60-115) mg/dL Calcium 8.9 D (8.4-10.2) mg/dL Total Bilirubin 0.3 (0.0-1.0) mg/dL Direct Bilirubin 0.2 (0.0-0.5) mg/dL AST 31 (5-37) U/L ALT 26 (0-40) U/L Alkaline Phosphatase 84 (39-117) U/L Troponin I High Sens 2.9 (<3.5-35.0) ng/L Total Protein 8.1 H (6.5-8.0) g/dL Albumin 3.7 (3.5-5.0) g/dL Influenza Type A (PCR) NEGATIVE (Negative) Influenza Type B (PCR) NEGATIVE (Negative) RSV RNA Qual (PCR) NEGATIVE (Negative) SARS-CoV-2 RNA (RT-PCR) NEGATIVE (Negative) 08/20/25 Range/Units 02:51 WBC (4.8-10.8) X10*3/uL RBC (4.60-5.80) X10*6/uL Hgb (14.0-18.0) g/dl Hct (42.0-52.0) % MCV (80.0-98.0) fL MCH (27.0-33.0) pg MCHC (31.0-36.0) g/dl RDW (11.0-16.0) % Plt Count (160-400) X10*3/uL MPV (9.4-12.4) fL Immature Gran % (Auto) (0.0-0.4) % Neut % (Auto) (45-73) % Lymph % (Auto) (20-40) % [place] % (Auto) (2-11) % Eos % (Auto) (0-4) % Baso % (Auto) (0-2) % Lymph # (Auto) (1.2-4.9) X10*3/uL [place] # (Auto) (0.1-1.2) X10*3/uL Eos # (Auto) (0.0-0.4) X10*3/uL Baso # (Auto) (0.0-0.2) X10*3/uL Abs Immat Gran (auto) (0.00-0.03) X10*3/uL Absolute Neuts (auto) (2.0-8.3) x10*3/uL Absolute Nucleated RBC (0.0-0.012) X10*3/uL Nucleated RBC % (auto) (0.0-0.2) /100WBC VBG pH 7.37 (7.32-7.43) VBG pCO2 51 mmHg VBG pO2 53 mmHg VBG HCO3 30 H (22-26) mmol/L VBG O2 Saturation 77.0 % VBG Base Excess 3.8 mmol/L Sodium (135-145) mmol/L Potassium (3.3-5.1) mmol/L Chloride (96-108) mmol/L Carbon Dioxide (22-29) mmol/L Anion Gap (12-20) BUN (9-16) mg/dL Creatinine (0.5-1.4) mg/dL Estim Creat Clear Calc Estimated GFR POC Glucose (60-115) mg/dL Random Glucose (60-115) mg/dL Calcium (8.4-10.2) mg/dL Total Bilirubin (0.0-1.0) mg/dL Direct Bilirubin (0.0-0.5) mg/dL AST (5-37) U/L ALT (0-40) U/L Alkaline Phosphatase (39-117) U/L Troponin I High Sens (<3.5-35.0) ng/L Total Protein (6.5-8.0) g/dL Albumin (3.5-5.0) g/dL Influenza Type A (PCR) (Negative) Influenza Type B (PCR) (Negative) RSV RNA Qual (PCR) (Negative) SARS-CoV-2 RNA (RT-PCR) (Negative) Independent Interpretation I performed an independent interpretation of an: Plain X-Ray Radiology Impression Discussion of test interpretation with radiology: I have reviewed the radiologist's reading. Radiologist Impression: No consolidation or effusion. There is no pneumothorax Heart size is normal. No acute fracture. IMPRESSION: 1. No acute findings. Critical Care Time Critical Care Time Critical Care Time: Yes Total Critical Care Time: 50 Attestation: I have personally provided critical care time. Time includes review of lab data, radiology results, discussion with consultants, and monitoring for potential decompensation. Intervention performed as documented. Discharge Plan Discharge Clinical Impression: Asthma exacerbation, Panic attack Patient Disposition: Home, Self-Care Instructions: Asthma (ED), Anxiety (ED) Additional Instructions: Please follow-up with your primary care physician tomorrow. If you have any worsening or new symptoms, please return to the emergency room or call 911 Prescriptions: New prednisone 50 mg tablet 50 mg PO DAILY Qty: 6 0RF No Action albuterol sulfate 90 mcg/actuation HFA aerosol inhaler 2 puff INHALATION Q4-6H PRN (Reason: muscle spasm) 30 Days Qty: 8.5 2RF fluticasone propion-salmeterol [Advair HFA] 45-21 mcg/actuation HFA aerosol inhaler 2 puff inhalation BID Qty: 12 1RF montelukast 10 mg tablet 10 mg PO BEDTIME Qty: 90 0RF Print Language: [place]
[2025-08-20] MEDS: Albuterol Sulfate 7.5 MG, Albuterol Sulfate (0.083%) 2.5 MG 10 MG INHALE (02:45)
[2025-08-20] MEDS: Magnesium Sulfate/H2O 2 GM/50 ML PIGGYBACK IV (02:49)
[2025-08-20 02:52] LABS: Hematocrit 41.0 % (42.0-52.0); Hemoglobin 13.1 g/dl (14.0-18.0); Imm Gran Abs Auto 0.04 X10*3/uL (0.00-0.03); Imm Gran Pct Auto 0.5 % (0.0-0.4); Lymphocytes Absolute Auto 1.4 X10*3/uL (1.2-4.9); MANUAL DIFF FLAG NO; Mean Corpuscular HGB Conc 32.0 g/dl (31.0-36.0); Mean Corpuscular Hemoglobin 27.8 pg (27.0-33.0); Mean Corpuscular Volume 86.9 fL (80.0-98.0); NRBC Abs Auto 0.000 X10*3/uL (0.0-0.012); NRBC Pct Auto 0.0 /100WBC (0.0-0.2); Platelet Count 247 X10*3/uL (160-400); Red Blood Count 4.72 X10*6/uL (4.60-5.80); White Blood Count 8.6 X10*3/uL (4.8-10.8)
[2025-08-20 02:54] LABS: Glucose, Whole Blood 233 mg/dL (60-115)
[2025-08-20 02:55] LABS: VBG HCO3 30 mmol/L (22-26); VBG O2 % Saturation 77.0 %
[2025-08-20 03:01] LABS: Venous Blood Gas Refer to POC result
[2025-08-20 03:05] LABS: Alanine Aminotransferase 26 U/L (0-40); Albumin Level 3.7 g/dL (3.5-5.0); Alkaline Phosphatase 84 U/L (39-117); Anion Gap 11 (12-20); Aspartate Amino Transferase 31 U/L (5-37); Blood Urea Nitrogen 16 mg/dL (9-16); Calcium 8.9 mg/dL (8.4-10.2); Carbon Dioxide 27 mmol/L (22-29); Chloride 106 mmol/L (96-108); Creatinine Clr Calc Pharmacy 168.7; Estimated Glomerular Filt Rate > 60; Potassium 3.9 mmol/L (3.3-5.1); Sodium 140 mmol/L (135-145); Total Protein 8.1 g/dL (6.5-8.0)
[2025-08-20] MEDS: diazePAM 10 MG/2 ML CARTRIDGE 5 MG IVPUSH (03:05)
[2025-08-20 03:12] LABS: Troponin-I High Sensitivity 2.9 ng/L (<3.5-35.0)
--- NOTE | 2025-08-20 03:18 | PC.NURSE ---
pt biba from home, a&ox4, respirations even and unlabored. pt reports sudden onset of shortness of breath and wheezing when waking up, reports x5 home nebs no relief. 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 18g right ac. pt reports hx of asthma and reports he has not had a flare up for a while. on arrival pt 95% on room air, medicated per dec. md rodriguez at bedside and rt at bedside
[2025-08-20 03:29] LABS: Resp Syncy Virus RNA Qual PCR NEGATIVE (Negative); SARS COV2 PCR INHOUSE NEGATIVE (Negative)
--- OUTSIDE RECORDS SUMMARY | 2025-08-20 03:36 | XMS_ITS | Encounter Summary ---
Author Organization [facility] Address [address] [address] Phone Care Team Providers Care Paper Roll Machine Operator Name Role Phone Javier Benoit MD Primary Care Provider Encounter Details Date Type Department Care Team (Late st Contact Info) Description 04/19/2023 Procedure Pass [facility], Ct Scan - [address] [address] Social History Tobacco Use Types Packs/Day Years [...] 5:00 AM EDT Iggy Carter, RN * [place] Suicide Severity Rating Scale (Screener/Recent Self-Report) Question [...] documented as of this encounter Care Teams Paper Roll Machine Operator Relationship Specialty Start Date End Date Javier Benoit MD [address] [place] [address] [place] [address] PCP - General Internal Medicine 04/19/23 documented as of this encounter Additional Source Comments The information contained in this document represents components of the legal health record. It is not the complete legal health record.[facility]
--- OUTSIDE RECORDS SUMMARY | 2025-08-20 03:36 | XMS_ITS | Clinical Summary ---
Author Organization [facility] Address [address] [address] Phone Care Team Providers Care Coagulator Name Role Phone Javier Benoit MD Primary Care Provider [phone] Allergies Active Allergy Reactions Criticality Noted Date [...] HEMOGLOBIN A1C 6.6(H) 4.3 - 5.8 % [facility] 04/19/2023 3:59 AM EDT 04/19/2023 5:54 AM EDT us Geovanni Mercado PA-C LAB BLOOD BKR ORDERABLES Final Result [address] [address] from Last 3 Months or Most Recently Relevant to Health Maintenance Advance Directives For more information, please contact: [phone] (9AM - 5PM [place], Thursday-Thursday) Documents on File Type Date Recorded Patient Wire Bound Box Machine Operator Expl anation Healthcare Proxy 04/24/2023 12:06 PM * Full Code (Latest Code Status on File) Date Activated Date Inactivated Comments 04/19/2023 3:46 AM Question Answer Comments Code Status Confirmed With: Patient Code Status Communicated To: Inpatient Attending Care Teams Coagulator Relationship Specialty Start Date End Date Javier Benoit MD [address] [place] [address] [place] [address] PCP - General Internal Medicine 04/19/23 Additional Source Comments The information contained in this document represents components of the legal health record. It is not the complete legal health record.[facility]
--- OUTSIDE RECORDS SUMMARY | 2025-08-20 03:36 | XMS_ITS | Encounter Summary ---
Author Organization [facility] Address [address] [address] Phone Care Team Providers Care Sports Information Director Name Role Phone Javier Benoit MD Primary Care Provider [phone] Encounter Details Date Type Department Care Team (Late st Contact Info) Description 01/26/2024 Procedure Pass [facility], Ct Scan - [address] [address] Social History Tobacco Use Types Packs/Day Years [...] 8:29 AM EDT Ludivina Schafer RN * [place] Suicide Severity Rating Scale (Screener/Recent Self-Report) Question [...] documented as of this encounter Care Teams Sports Information Director Relationship Specialty Start Date End Date Javier Benoit MD [address] [place] [address] [place] [address] PCP - General Internal Medicine 04/19/23 documented as of this encounter Additional Source Comments The information contained in this document represents components of the legal health record. It is not the complete legal health record.[facility]
[2025-08-20 06:40] VITALS: BP 101/70; PULSE 117; RESP 16; TEMP 36.7; O2SAT 95
== END 2025-08-20 06:41 | disposition home or self-care (01) ==
PROVIDERS: Emergency Provider Emergency Medicine; PCP Student in an Organized Health Care Education/Training Program
DX: J45.901 Unspecified asthma with (acute) exacerbation (principal); R00.0 Tachycardia, unspecified; R06.02 Shortness of breath; Z03.818 Encounter for observation for suspected exposure to other biological agents ruled out; Z79.899 Other long term (current) drug therapy
CPT/HCPCS: 71045; 80048; 80076; 82803; 82947; 84484; 85025; 87637; 93005; 94640; 96365; 96375; 99285; 99291; J2919; J3360; J3475

== ENCOUNTER → 2025-08-20 02:39 | Outpatient (BNV) | payer OTHER, SELFPAY | PROVIDERS: Emergency Provider Emergency Medicine; PCP Student in an Organized Health Care Education/Training Program; Visit Provider Radiology Diagnostic Radiology | DX: R06.02 Shortness of breath (principal) | CPT/HCPCS: 71045 ==

== ENCOUNTER → 2025-08-20 02:39 | Outpatient (BNV) | payer OTHER, SELFPAY | PROVIDERS: Emergency Provider Emergency Medicine; PCP Student in an Organized Health Care Education/Training Program; Visit Provider Internal Medicine Cardiovascular Disease | DX: R00.0 Tachycardia, unspecified (principal) | CPT/HCPCS: 93010 ==

== ENCOUNTER 2025-09-01 14:13 | Outpatient (REF) | payer OTHER, SELFPAY ==
[2025-09-01 15:13] LABS: MANUAL DIFF FLAG NO
[2025-09-01 18:37] LABS: Hematocrit 41.2 % (42.0-52.0); Hemoglobin 13.5 g/dl (14.0-18.0); Imm Gran Abs Auto 0.07 X10*3/uL (0.00-0.03); Imm Gran Pct Auto 0.7 % (0.0-0.4); Lymphocytes Absolute Auto 1.6 X10*3/uL (1.2-4.9); Mean Corpuscular HGB Conc 32.8 g/dl (31.0-36.0); Mean Corpuscular Hemoglobin 28.3 pg (27.0-33.0); Mean Corpuscular Volume 86.4 fL (80.0-98.0); NRBC Abs Auto 0.000 X10*3/uL (0.0-0.012); NRBC Pct Auto 0.0 /100WBC (0.0-0.2); Platelet Count 275 X10*3/uL (160-400); Red Blood Count 4.77 X10*6/uL (4.60-5.80); White Blood Count 10.7 X10*3/uL (4.8-10.8)
[2025-09-01 18:44] LABS: Appearance Urine Clear; Glucose Urine UA >=1000 mg/dL (Negative); PH 6.5 (5.0-9.0); Specific Gravity - Urine >= 1.030 (1.005-1.025); UMIC TRIGGER UACC YES
[2025-09-01 18:50] LABS: UACC Culture Trigger YES
[2025-09-01 19:14] LABS: Alanine Aminotransferase 47 U/L (0-40); Albumin Level 3.6 g/dL (3.5-5.0); Alkaline Phosphatase 97 U/L (39-117); Anion Gap 11 (12-20); Aspartate Amino Transferase 31 U/L (5-37); Blood Urea Nitrogen 12 mg/dL (9-16); Calcium 9.5 mg/dL (8.4-10.2); Carbon Dioxide 25 mmol/L (22-29); Chloride 105 mmol/L (96-108); Cholesterol 108 mg/dL (<200); Estimated Glomerular Filt Rate > 60; HDL Cholesterol 37 mg/dL (>40); Magnesium 2.0 mg/dL (1.6-2.6); Potassium 4.4 mmol/L (3.3-5.1); Sodium 137 mmol/L (135-145); Total Protein 7.7 g/dL (6.5-8.0); Triglycerides 119 mg/dL (<150)
[2025-09-01 19:28] LABS: Folate 17.3 ng/mL (> or = 4.0); Vitamin B12 699 pg/mL (200-900)
[2025-09-02 08:21] LABS: HBS Num1 0.47 mIU/mL (0-7.99); HBsAGNum1 0.54 S/CO (0.00-0.99); HIV Num 1 0.06 S/CO (0.00-0.99); Hepatitis B Surface Antigen Negative (Negative); ~HepC Num1 0.16 S/CO (0.00-0.79); ~Hepatitis B Surface Antibody NONREACTIVE (Nonreactive); ~Hepatitis C Antibody Nonreactive (Nonreactive)
[2025-09-02 08:28] LABS: Syphilis Screen Nonreactive (Nonreactive)
[2025-09-05 18:24] LABS: VITAMIN D (1,25 OH) D3 37 pg/mL; Vit D (1,25-Dihydroxy) Total 37 pg/mL (18-72); Vitamin D (1,25 OH) D2 <8 pg/mL
== END 2025-09-01 14:14 | disposition home or self-care (01) ==
LOC: HO.HKASLDS 14:13
PROVIDERS: PCP Student in an Organized Health Care Education/Training Program; Visit Provider Student in an Organized Health Care Education/Training Program
DX: J45.40 Moderate persistent asthma, uncomplicated (principal); I87.2 Venous insufficiency (chronic) (peripheral); J30.9 Allergic rhinitis, unspecified; Z28.89 Immunization not carried out for other reason; E11.9 Type 2 diabetes mellitus without complications; E66.01 Morbid (severe) obesity due to excess calories; Z68.44 Body mass index [BMI] 60.0-69.9, adult; Z79.899 Other long term (current) drug therapy
CPT/HCPCS: 36415; 80053; 80061; 81001; 81003; 82607; 82652; 82746; 83036; 83735; 84443; 85025; 86706; 86780; 86803; 87086; 87340; 87389; 90471; 96127

== ENCOUNTER 2025-09-01 14:13 | Outpatient (AMB) | payer OTHER, SELFPAY ==
[2025-09-01 14:24] VITALS: BP 120/76; PULSE 122; TEMP 36.6; O2SAT 96; BMI 64.2
--- NOTE | 2025-09-01 14:24 | A.OFFPC_ITS ---
Vital Signs 09/01/25 14:24 Height 5 ft 3 in Weight 362 lb 8 oz BMI 64.2 BP 120/76 Blood Pressure Location Rt brachial Position Sitting Pulse 122 H Pulse Source Pulse Oximeter Temp 97.8 F Temp Source Oral Pulse Oximetry (%) 96 Oxygen Delivery Method Room Air Intake Visit Reasons: 2 wk lab review Aerial Crop Duster Required: No Accompanied by: Spouse Allergies acetaminophen (Vicodin) Allergy (Severe, Verified 09/01/25 14:24) shortness of breath hydrocodone (Vicodin) Allergy (Severe, Verified 09/01/25 14:24) shortness of breath hydromorphone (From Dilaudid) Allergy (Severe, Verified 09/01/25 14:24) UNKNOWN, Tongue swelling morphine Allergy (Verified 09/01/25 14:24) Unknown From VICODIN Allergy (Severe, Uncoded 08/20/25 02:39) ANAPHYLAXIS SEASONAL ALLERGIES Allergy (Severe, Uncoded 08/20/25 02:39) Wheezing Tobacco use date assessed: 09/01/25 Dental Screening Dental Screen Date: 09/01/25 Did you have a dental visit in the last 12 months?: No Was dental information given to patient?: No HPI HPI Comments History of Present Illness Details History of Present Illness The patient is a 55 year old individual presenting for an asthma follow-up after a recent emergency department visit. Asthma: The patient had a recent emergency department visit for an acute asthma exacerbation, characterized by sudden chest tightness. The event was triggered by exposure to dust from a guinea pig cage that was being cleaned. Prior to the ambulance arriving, the patient was gasping for air, had an oxygen level of 98%, and self-administered a rescue inhaler, a maintenance steroid inhaler, and a nebulizer treatment. In the hospital, a chest x-ray and all blood work were normal. A panic attack was also triggered during the hospitalization. The patient reports not using the maintenance inhaler as prescribed, admitting to only taking it when feeling symptomatic rather than twice daily. The patient's congestion has improved and sense of smell has returned with allergy and nasal medications. stasis dermatitis The patient reports an issue with the feet and did not receive the previously prescribed Silvadene cream from the pharmacy. Health Maintenance: A home sleep study has been ordered, and the patient is waiting to be contacted to scrap picker the equipment. The patient did not get screening labs done after the last visit because of illness, and the labs performed in the ED were not comprehensive, missing an A1c, thyroid panel, and lipid panel. Medications: - Maintenance inhaler (purple), steroid- based, for asthma - Rescue inhaler (red, albuterol) for as thma - Nebulizer (albuterol with steroids) fo r asthma - Nasal spray for allergies Social History: - Environmental exposure: Lives in a louise e with a guinea pig, which is an identified asthma trigger. 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 Diagnostic Results: - Imaging: A chest x-ray from the recent hospital visit was completely clear. - Labs: All blood work from the recent h ospital visit was normal. - Other: Oxygen level at home during the asthma attack was 98%. 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 - The patient will be contacted by the [facility] to arrange for the previously ordered home sleep study. - A follow-up visit will be scheduled to review the results of the labs and sleep study. [facility] Medical History Stasis dermatitis Chronic sinusitis Anxiety Moderate persistent asthma Asthma with acute exacerbation Incarcerated ventral hernia (01/27/25) Small bowel obstruction Morbid obesity Super obesity Nephrolithiasis Bronchitis Obesity Surgical History S/P recurrent ventral herniorrhaphy (01/27/25) Family History Mother No problems noted. Father Heart attack Social History Household Members: Spouse Housing: House Do you presently have visiting nurse or other home services: No Alcohol intake: former Comment: unknown room Patient Tobacco Use Status: Never used Tobacco e-Cigarette/Vaping Use: Never Used Second Hand Smoke Exposure: Yes Advance Directives Date on File: 01/27/25 service: No Current occupational status: employed and disabled Cognitive needs: No Hearing needs: No Vision needs: Yes (Glasses) Questionnaire PHQ-9 Over the last 2 weeks, how often have you been bothered by any of the following problems? 1. Little interest or pleasure in doing things: not at all 2. Feeling down, depressed, or hopeless: not at all 3. Trouble falling or staying asleep, or sleeping too much: nearly every day 4. Feeling tired or having little energy: not at all 5. Poor appetite or overeating: not at all 6. Feeling bad about yourself - or that you are a failure or have let yourself or your family down: not at all 7. Trouble concentrating on things, such as reading the newspaper or watching television: not at all 8. Moving or speaking so slowly that other people could have noticed. Or the opposite - being so fidgety or restless that you have been moving around a lot more than usual: not at all 9. Thoughts that you would be better off or of hurting yourself in some way: not at all Total score: 3 Depression Screening Interpretation: Negative Depression Screening Done: Yes Source: Developed by Drs. Vimal Santos, Rina Sibley, Pako Gee and colleagues, with an educational flako from [employer]. Thrive Questionnaire Date Thrive assessed: 09/01/25 I am a: Patient What is your living situation today?: I have a steady place to live Within the past 12 months, did the food you bought not last and you didn't have the money to get more?: Sometimes True Within the past 12 months, did you worry whether your food would run out before you got money to buy more?: Never true Do you have trouble paying for medicines?: No Do you have trouble getting transportation to medical appointments?: No Do you have trouble paying your heating and electricity bill?: Yes Do you have trouble taking care of your child, family member or friend?: No Are you currently unemployed and looking for a job?: No Are you interested in more education?: No Please select the resources that you would like help with: None Currently or been in a relationship where the following occur: No concerns reported THRIVE Score: 2 SHRUTHI-7 AMB Questionnaire SHRUTHI-7 Date SHRUTHI - 7 assessed: 09/01/25 Feeling nervous, anxious, or on edge: 0 = Not at all Not being able to stop or control worryin = Not at all Worrying too much about different things: 0 = Not at all Trouble relaxin = Several days Being so restless that it is hard to sit still: 0 = Not at all Becoming easily annoyed or irritable: 0 = Not at all Feeling afraid as if something awful might happen: 0 = Not at all Total SHRUTHI-7 score (0-4 normal; 5-9 mild; 10-14 moderate; 15-21 severe): 1 Source: Developed by Drs. Vimal Santos, Rina Sibley, Pako Gee and colleagues, with an educational flako from [employer]. Review of Systems Narrative Review of Systems - Respiratory: Reports a recent episode of severe chest tightness and gasping for air. - Endorses exertional chest closing. - Denies cough or shortness of breath at night. - HEENT: Reports improvement in nasal congestion and has regained the sense of smell. - Integumentary: Reports an unspecified problem with the feet. - Psychiatric: Reports a history of a panic attack. 10-point ROS reviewed and negative except as noted in HPI Physical exam (Primary Care) Vital Signs: Last Vital Signs Temp 97.8 F 09/01/25 14:24 Pulse 122 H 09/01/25 14:24 BP 120/76 09/01/25 14:24 Pulse Ox 96 09/01/25 14:24 Oxygen Delivery Method Room Air 09/01/25 14:24 BMI result Body Mass Index 64.2 Tobacco/Smoking Status: Tobacco use Status Tobacco use date assessed 09/01/25 09/01/25 14:25 Patient Tobacco Use Status Never used Tobacco 09/01/25 14:25 e-Cigarette/Vaping Use Never Used 09/01/25 14:25 PHQ-9: PHQ-9 Score PHQ-9: Total score 3 09/01/25 14:43 Depression Screening Interpretation: Negative Thrive Assessment: Date of Thrive Assessment Date Thrive assessed 09/01/25 09/01/25 14:25 Currently or been in a relationship where the following occur: No concerns reported Narrative Physical Exam General: Well-appearing, in no acute distress. morbid obesity Vital signs: Oxygen level was at 98 when checked at home. HEENT: Normocephalic, atraumatic. PERRLA, EOMI. Conjunctiva clear, sclera anicteric. Oropharynx clear, mucous membranes moist. TMs intact bilaterally. Neck: Supple, no lymphadenopathy, no thyromegaly, no JVD or carotid bruits. Cardiovascular: RRR, normal S1/S2, no murmurs, rubs, or gallops. Peripheral pulses 2+ and symmetric. No edema. Respiratory: Lungs clear to auscultation bilaterally, no wheezes, rales, or rhonchi. Normal effort. Patient reports improvement in congestion and ability to smell food after medication for allergies. Abdomen: Soft, non-tender, non-distended. Normoactive bowel sounds. No hepatosplenomegaly, no masses. MSK: Full range of motion, no joint swelling or deformity. Normal gait. Patient reports trouble with feet, awaiting Silvadene cream for treatment. Skin: Warm, dry, intact. No rashes, lesions, or pallor. scaly patches on feet Neuro: Alert and oriented x3. Cranial nerves II-XII intact. Strength 5/5 throughout. Sensation intact. Reflexes 2+ symmetric. Normal coordination and gait. Psych: Appropriate mood and affect. Normal judgment and insight. Office Procedures Flu Questionnaire Does the patient have a severe egg allergy?: No Does the patient have severe life threatening allergies?: No Does the patient have a fever or illness today?: No Has the patient ever had Guillain-[place] Syndrome?: No Has the patient ever had any past reaction to a flu shot?: No Immunizations Fluarix [id number] (PF) 45 mcg (15 mcg x 3)/0.5 mL IM syringe Performing Provider: Wolfgang Newman MD [place] [facility] [place] [facility] Documented (not given) by: Ragini Garcia CMA on 09/01/25 14:44 Reason Not Given: Received Previously Coding Level of Care Code Est Pt Level 3 (60896) Diagnoses Moderate persistent asthma J45.40 Allergic rhinitis, unspecified seasonality, unspecified trigger J30.9 Allergic rhinitis trigger: unspecified Allergic rhinitis seasonality: unspecified Stasis dermatitis I87.2 Assessment & Plan Assessment & Plan (1) Moderate persistent asthma: Code(s): J45.40 - Moderate persistent asthma, uncomplicated Category: Medical (2) Allergic rhinitis: Code(s): J30.9 - Allergic rhinitis, unspecified Category: Medical Qualifiers: Allergic rhinitis trigger: unspecified Allergic rhinitis seasonality: unspecified Qualified Code(s): J30.9 - Allergic rhinitis, unspecified (3) Stasis dermatitis: Code(s): I87.2 - Venous insufficiency (chronic) (peripheral) Category: Medical Plan Consent Patient was informed and verbally consented to the use of an ambient scribe for clinic note documentation during this visit. Plan 1. Asthma - Educated the patient on the proper use of the maintenance inhaler, instructing the patient to use two puffs in the morning and two puffs at night every day, r egardless of symptoms, as it is a preventative medication. - Advised to use the rescue inhaler only for breakthrough shortness of breath. - If the patient continues to require the rescue inhaler frequently despite proper maintenance therapy, the plan is to increase the dose of the maintenance inhaler. - Recommended wearing a mask when around the guinea pig to avoid triggers. 2. stasis dermatitis - A new prescription for Silvadene cream 1% in an 85g tube has been sent to the pharmacy. - Instructed the patient to apply the cream to the affected area on the feet twice a day and to keep it covered. - The condition will be reassessed after the initial course of treatment. Discussion Notes I reviewed the patient's recent emergency department visit for an asthma exacerbation, which we identified was likely triggered by an allergic reaction to a guinea pig. I explained that the patient's prior misunderstanding of the asthma action plan, specifically using the maintenance inhaler only when sy mptomatic, was incorrect. I provided education on the importance of using the maintenance inhaler twice daily regardless of symptoms to prevent future attacks and reduce the need for the rescue inhaler. We discussed that if symptoms persist despite correct use, we will escalate the maintenance therapy. I addressed the foot issue by re-sending a prescription for Silvadene cream and providing instructions for its use. I also confirmed that the patient should proceed with pending health maintenance screenings, including comprehensive lab work and a home sleep study, and we will follow up to review the results. The patient verbalized understanding of the plan. Patient Instructions - Use your maintenance inhaler every day, taking two puffs in the morning and two puffs at night, even if you feel well. - The maintenance inhaler helps prevent asthma attacks from happening. - Only use your red rescue inhaler when you feel short of breath. - Let the office know if you are still needing to use the rescue inhaler frequently after using the maintenance inhaler correctly. - Wear a mask when you are around the guinea pig to avoid triggering your asthma. - A prescription for Silvadene cream has been sent to [facility]. - Apply it to your feet twice a day and keep the area covered. - Please go to the lab to have your blood drawn today for the ordered tests. - You will receive a call from the sleep center to set up your home sleep test. Medical Decision Making The patient is a 55-year-old individual who presented for a follow-up after a recent ER visit for an acute asthma exacerbation. The history clearly indicates an environmental trigger (guinea pig allergen) precipitated the event. The core of this visit focused on patient education, as the patient demonstrated non- adherence and a misunderstanding of the role of a maintenance inhaler versus a rescue inhaler. The primary intervention is to correct this behavior to improve asthma control and prevent future exacerbations. Before escalating the steroid dose, the patient will first attempt proper adherence to the current regimen. Additionally, a prescription for Silvadene cream for a foot condition was re-sent, as the initial one was not received. Outstanding health maintenance labs and a sleep study will be completed to provide a more comprehensive view of the patient's overall health. Total Time Statement 20 min Total time spent caring for the patient today includes pre-visit chart review, documentation, review of laboratory and diagnostic imaging results, medication reconciliation, medically necessary evaluation, counseling on diagnoses, care coordination, ordering appropriate tests and medications, review of tests performed by other providers, reporting test results to the patient, and communication with other healthcare providers. Orders: Orders Influenza [id number] Immunization Today Z23 - Encounter for immunization Medications: New silver sulfadiazine 1% (Silvadene) apply a 1.5 mm thickness 1 appl topical BID 85 grams 0RF
--- OUTSIDE RECORDS SUMMARY | 2025-09-01 14:34 | XMS_ITS | Encounter Summary ---
Author Organization [facility] Address [address] [address] Phone Care Team Providers Care Fur Joiner Name Role Phone Javier Benoit MD Primary Care Provider [phone] Encounter Details Date Type Department Care Team (Late st Contact Info) Description 04/19/2023 Procedure Pass [facility], Ct Scan - [address] [address] Social History Tobacco Use Types Packs/Day Years [...] 5:00 AM EDT Iggy Carter, RN * [place] Suicide Severity Rating Scale (Screener/Recent Self-Report) Question [...] documented as of this encounter Care Teams Fur Joiner Relationship Specialty Start Date End Date Javier Benoit MD [address] [place] [address] [place] [address] PCP - General Internal Medicine 04/19/23 documented as of this encounter Additional Source Comments The information contained in this document represents components of the legal health record. It is not the complete legal health record.[facility]
--- OUTSIDE RECORDS SUMMARY | 2025-09-01 14:34 | XMS_ITS | Clinical Summary ---
Author Organization [facility] Address [address] [address] Phone Care Team Providers Care Skein Yard Drier Name Role Phone Javier Benoit MD Primary Care Provider [phone] Allergies Active Allergy Reactions Criticality Noted Date Comments Hydromorphone 04/19/2023 Morphine 04/19/2023 Oxycodone-Acetaminophen 04/19/2023 Medications albuterol 90 mcg/actuation inhaler Inhale 2 puffs into the lungs every 4 (four) hours as needed (bronchospasm). 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 It is not the complete legal health record.[facility]
--- OUTSIDE RECORDS SUMMARY | 2025-09-01 14:34 | XMS_ITS | Encounter Summary ---
Author Organization [facility] Address [address] [address] Phone Care Team Providers Care Sleep Lab Technologist Name Role Phone Javier Benoit MD Primary Care Provider [phone] Encounter Details Date Type Department Care Team (Late st Contact Info) Description 01/26/2024 Procedure Pass [facility], Ct Scan - [address] [address] Social History Tobacco Use Types Packs/Day Years [...] 8:29 AM EDT Ludivina Schafer RN * [place] Suicide Severity Rating Scale (Screener/Recent Self-Report) Question [...] documented as of this encounter Care Teams Sleep Lab Technologist Relationship Specialty Start Date End Date Javier Benoit MD [address] [place] [address] [place] [address] PCP - General Internal Medicine 04/19/23 documented as of this encounter Additional Source Comments The information contained in this document represents components of the legal health record. It is not the complete legal health record.[facility]
== END 2025-09-01 15:04 | disposition home or self-care (01) ==
LOC: HO.HMCFMS 14:14
PROVIDERS: Visit Provider Student in an Organized Health Care Education/Training Program
DX: J45.40 Moderate persistent asthma, uncomplicated (principal); J30.9 Allergic rhinitis, unspecified; I87.2 Venous insufficiency (chronic) (peripheral); Z23 Encounter for immunization

== ENCOUNTER 2025-09-06 11:30 | Outpatient (AMB) | payer OTHER, SELFPAY ==
--- NOTE | 2025-09-06 11:33 | MHC.PC.OV ---
Vital Signs 09/06/25 11:38 Height 5 ft 3 in Weight 360 lb 3 oz BMI 63.8 BP 120/74 Blood Pressure Location Lt brachial Position Sitting Respiration 20 Pulse 94 Pulse Source Monitor Temp 98.2 F Temp Source Oral Pulse Oximetry (%) 94 Oxygen Delivery Method Room Air Intake Visit Reasons: discuss labs Intake Note: discuss labs Consulting Business Developer Required: No Accompanied by: Spouse Allergies acetaminophen (Vicodin) Allergy (Severe, Verified 09/06/25 11:37) shortness of breath hydrocodone (Vicodin) Allergy (Severe, Verified 09/06/25 11:37) shortness of breath hydromorphone (From Dilaudid) Allergy (Severe, Verified 09/06/25 11:37) UNKNOWN, Tongue swelling morphine Allergy (Verified 09/06/25 11:37) Unknown From VICODIN Allergy (Severe, Uncoded 09/06/25 11:37) ANAPHYLAXIS SEASONAL ALLERGIES Allergy (Severe, Uncoded 09/06/25 11:37) Wheezing Tobacco use date assessed: 09/01/25 Dental Screening Dental Screen Date: 09/01/25 HPI HPI Comments History of Present Illness Details History of Present Illness The patient is a 55 year old individual presenting for review of lab results. Type 2 diabetes mellitus: The patient was recently informed of a blood sugar in the 400s. Recent lab work revealed a random glucose of 475 and a hemoglobin A1c of 9.3%. About a year ago, the patient experienced elevated blood sugar attributed to steroid use for breathing issues, which resolved after discontinuing the steroids. The patient had a skin issue that was not healing properly, which is now understood to be related to the high sugar levels. The patient has already started making dietary changes. Asthma: The patient has a history of atopic conditions, including asthma, which is consistent with high eosinophil levels on lab results. Current medications include Montelukast, albuterol, and a maintenance inhaler, which have been helping with the breathing. Since starting these medications, the patient reports improved breathing, reduced snoring, and no longer gasping for air at night. The patient has also been using a nasal spray, which has improved the sense of smell without causing nosebleeds. Dermatitis: The patient had dermatitis on the feet with associated pruritus. The patient has been using a prescribed cream (silver sulfadiazine) twice a day and reports significant improvement and reduced itchiness. Anemia: Lab results showed slightly low hemoglobin and hematocrit, suggestive of a dietary insufficiency such as iron. Overweight: The patient is noted to be overweight, which is a consideration for the new medication regimen. An elevated ALT level is also attributed to the patient's weight, suggesting fatty deposits in the liver. Medications: - Montelukast, for allergies and asthma, taken at night - Albuterol, rescue inhaler for asthma - Advair, maintenance inhaler for asthma - Unspecified nasal spray - Silver sulfadiazine cream, for dermatitis on feet Social History: - Nutrition: The patient has started to change diet in response to the new diagnosis. - Weight Management: The patient is overweight. Diagnostic Results: - CBC: White blood cells and red blood cells are good; hemoglobin and hematocrit are slightly low. - Differential: Eosinophils are high. - CMP: Sodium and potassium are normal; kidney function is normal; random glucose is 475. - Hemoglobin A1c: 9.3%. - Liver function test: ALT is slightly elevated at 47. - Lipid panel: Triglycerides < 150, total cholesterol < 200, LDL 48, HDL 37. - Vitamin B12: 699. - Vitamin D, folate, and thyroid levels are good. - Urinalysis: Normal. - Hepatitis B, Hepatitis C, and HIV tests are negative. - Hepatitis B immunity: Appears non-immune. Past Medical History - Asthma - Dermatitis - History of steroid-induced hyperglycemia about a year ago following hospitalization for breathing issues. Health Maintenance - Place referrals for an annual podiatry exam and an annual eye exam. - The patient is advised to receive the Hepatitis B vaccine. [facility] Medical History (Updated 09/06/25 @ 13:37 by Wolfgang Newman MD) Anemia Diabetes type 2 Stasis dermatitis Chronic sinusitis Anxiety Moderate persistent asthma Asthma with acute exacerbation Incarcerated ventral hernia (01/27/25) Small bowel obstruction Morbid obesity Super obesity Nephrolithiasis Bronchitis Obesity Surgical History S/P recurrent ventral herniorrhaphy (01/27/25) Family History Mother No problems noted. Father Heart attack Social History Household Members: Spouse Housing: House Do you presently have visiting nurse or other home services: No Alcohol intake: former Comment: unknown room Patient Tobacco Use Status: Never used Tobacco e-Cigarette/Vaping Use: Never Used Second Hand Smoke Exposure: Yes Advance Directives Date on File: 01/27/25 service: No Current occupational status: employed and disabled Cognitive needs: No Hearing needs: No Vision needs: Yes (Glasses) Questionnaire Thrive Questionnaire Date Thrive assessed: 08/18/25 I am a: Patient What is your living situation today?: I have a steady place to live Within the past 12 months, did the food you bought not last and you didn't have the money to get more?: Sometimes True Within the past 12 months, did you worry whether your food would run out before you got money to buy more?: Never true Do you have trouble paying for medicines?: No Do you have trouble getting transportation to medical appointments?: No Do you have trouble paying your heating and electricity bill?: Yes Do you have trouble taking care of your child, family member or friend?: No Do you have trouble with day-to-day activities such as bathing, preparing meals, shopping, managing finances, etc.?: No Are you currently unemployed and looking for a job?: No Are you interested in more education?: No Please select the resources that you would like help with: None Currently or been in a relationship where the following occur: No concerns reported THRIVE Score: 2 AUDIT C Alcohol Use Questionnaire (AUDIT-C) 3. How often do you have six or more drinks on one occasion?: Never Total Score: 0 SHRUTHI-7 AMB Questionnaire SHRUTHI-7 Date SHRUTHI - 7 assessed: 09/01/25 Source: Developed by Drs. Vimal Santos, Rina Sibley, Pako Gee and colleagues, with an educational flako from [employer]. Review of Systems Narrative Review of Systems - Constitutional: Denies fever. Reports feeling less anxious after the discussion. - Psychiatric: Reports feeling nervous and anxious prior to the discussion. - Cardiovascular: Reports chest pressure, which is believed to be related to anxiety. - Respiratory: Since starting asthma medications, the patient denies snoring and gasping for air at night. - Integumentary: Reports improvement in pruritus on the feet with cream. - HEENT: Reports an improved sense of smell. Denies nosebleeds from nasal spray. 10-point ROS reviewed and negative except as noted in HPI Physical exam (Primary Care) Vital Signs: Last Vital Signs Temp 98.2 F 09/06/25 11:38 Pulse 94 09/06/25 11:38 Resp 20 09/06/25 11:38 BP 120/74 09/06/25 11:38 Pulse Ox 94 09/06/25 11:38 Oxygen Delivery Method Room Air 09/06/25 11:38 BMI result Body Mass Index 63.8 Tobacco/Smoking Status: Tobacco use Status Tobacco use date assessed 09/01/25 09/06/25 11:42 Patient Tobacco Use Status Never used Tobacco 09/06/25 11:42 e-Cigarette/Vaping Use Never Used 09/06/25 11:42 Thrive Assessment: Date of Thrive Assessment Date Thrive assessed 08/18/25 09/06/25 11:42 Currently or been in a relationship where the following occur: No concerns reported Narrative Physical Exam General: Well-appearing, in no acute distress. Morbid obesity Vital signs: Within normal limits. HEENT: Normocephalic, atraumatic. PERRLA, EOMI. Conjunctiva clear, sclera anicteric. Oropharynx clear, mucous membranes moist. TMs intact bilaterally. Neck: Supple, no lymphadenopathy, no thyromegaly, no JVD or carotid bruits. Cardiovascular: RRR, normal S1/S2, no murmurs, rubs, or gallops. Peripheral pulses 2+ and symmetric. No edema. Respiratory: Lungs clear to auscultation bilaterally, no wheezes, rales, or rhonchi. Normal effort. Patient is asthmatic and on Montelukast, albuterol, and a maintenance inhaler. Abdomen: Soft, non-tender, non-distended. Normoactive bowel sounds. No hepatosplenomegaly, no masses. MSK: Full range of motion, no joint swelling or deformity. Normal gait. Skin: Warm, dry, intact. No rashes, lesions, or pallor. Dermatitis noted around feet, patient using cream twice a day with improvement. Neuro: Alert and oriented x3. Cranial nerves II-XII intact. Strength 5/5 throughout. Sensation intact. Reflexes 2+ symmetric. Normal coordination and gait. Psych: Appropriate mood and affect. Normal judgment and insight. Patient reports anxiety related to recent diabetes diagnosis. Coding Level of Care Code Est Pt Level 3 (88526) Diagnoses Diabetes type 2 E11.9 Morbid obesity E66.01 Stasis dermatitis I87.2 Anxiety F41.9 Moderate persistent asthma J45.40 Anemia D64.9 Assessment & Plan Assessment & Plan (1) Diabetes type 2: Code(s): E11.9 - Type 2 diabetes mellitus without complications Category: Medical (2) Morbid obesity: Code(s): E66.01 - Morbid (severe) obesity due to excess calories Category: Medical (3) Stasis dermatitis: Code(s): I87.2 - Venous insufficiency (chronic) (peripheral) Category: Medical (4) Anxiety: Code(s): F41.9 - Anxiety disorder, unspecified Category: Medical (5) Moderate persistent asthma: Code(s): J45.40 - Moderate persistent asthma, uncomplicated Category: Medical (6) Anemia: Code(s): D64.9 - Anemia, unspecified Category: Medical Plan Consent Patient was informed and verbally consented to the use of an ambient scribe for clinic note documentation during this visit. Plan 1. Type 2 Diabetes Mellitus - Start metformin 1000 mg, taken once in the morning and once at night with food. - The patient was counseled that metformin may cause gastrointestinal upset for the first two weeks, and to follow up if it continues. - Start Ozempic (semaglutide) injection at a dose of 0.25 mg once a week for A1c control and weight loss. - The plan is to titrate the Ozempic dosage up monthly from 0.25 mg to 0.5 mg, then 1 mg, and finally 2 mg, as tolerated. - The patient was instructed to watch a video on how to use the Ozempic pen and to come in for a demonstration if needed. - Start vitamin B12 supplementation to prevent deficiency secondary to metformin use. - The current risk of hypoglycemia is low given the high starting blood glucose and A1c levels. - Referrals will be sent to a store grocery merchandiser and a head of digital. - Follow up in three months to re-evaluate hemoglobin A1c. 2. Hyperlipidemia And Cardiovascular Risk Reduction - Start atorvastatin at bedtime. - This is for cardiovascular protection and anti-inflammatory effects in the setting of diabetes, with a goal to keep LDL below 70 and raise HDL. 3. Asthma - Continue current medications including Montelukast, albuterol, a maintenance inhaler (Advair), and a nasal spray, as they have been effective. - The contribution of inhaled steroids to hyperglycemia is considered minimal and will not be changed. 4. Dermatitis - Continue using the prescribed silver sulfadiazine cream twice a day as it has been helping. 5. Anemia - Will manage with dietary changes by increasing intake of iron-rich foods. Discussion Notes I reviewed the lab results with the patient, confirming a new diagnosis of type 2 diabetes, with a random glucose of 475 and a hemoglobin A1c of 9.3%. I explained the risks associated with uncontrolled diabetes, such as diabetic ketoacidosis and the increased risk of infection and poor healing. I outlined the comprehensive treatment plan, starting with metformin 1000 mg twice daily and a weekly Ozempic injection, beginning at 0.25 mg. I discussed that my approach is to start with these medications before escalating to insulin. I also initiated atorvastatin for cardiovascular protection, aiming for an LDL goal of less than 70 due to the diabetes diagnosis. We discussed adding vitamin B12 to prevent deficiency caused by metformin. I addressed the patient's concerns regarding potential hypoglycemia, explaining it is unlikely at this time, and confirmed that the inhaled steroids for asthma have minimal impact on blood sugar. We also discussed the importance of preventative care, including referrals to a net web application developer, head of digital, agricultural agent, and optical fabrication technician, as well as the recommendation for a Hepatitis B vaccine. I advised a follow-up in three months to monitor the hemoglobin A1c. Patient Instructions - Take metformin 1000 mg twice per day with food. You might have some stomach upset for the first two weeks, which is normal. - You will start Ozempic injections once a week, beginning with the 0.25 mg dose. Watch the online video for instructions on how to use the pen. You can inject it in your belly area, rotating the spot each week. - If you are unsure how to use the Ozempic pen after watching the video, please come to the office for a quick demonstration. - Take atorvastatin at bedtime for cholesterol management and heart protection. - Take vitamin B12 to prevent its levels from getting low due to metformin. - Continue using your current asthma medications (Montelukast, albuterol, Advair, and nasal spray) as they are working well. - Continue using the silver sulfadiazine cream on your feet twice a day. - Eat more iron-rich foods like kidney beans, lentils, spinach, and broccoli. - You will receive calls to set up appointments with a store grocery merchandiser, a head of digital, a foot doctor (agricultural agent), and an eye doctor. - It is recommended that you get the Hepatitis B vaccine. - You need to be very careful with any cuts or sores, as they may get infected easily and heal slowly due to diabetes. - Return to the clinic in three months for a follow-up appointment. Medical Decision Making The patient is a 55 year old individual with newly diagnosed, uncontrolled type 2 diabetes mellitus, evidenced by a random glucose of 475 and an HbA1c of 9.3%. The patient's clinical picture also includes well-controlled asthma, overweight status, mild anemia, and dermatitis. The primary goal of this visit was to initiate a robust treatment plan to achieve glycemic control and reduce cardiovascular risk. Although an HbA1c of 9.3% is an indication for insulin, I opted to start with aggressive combination therapy using metformin and a GLP-1 receptor agonist (Ozempic) to avoid the significant lifestyle changes associated with insulin therapy at this stage. Metformin is a first-line agent, and Ozempic was selected for its proven efficacy in lowering A1c and promoting weight loss, which is a concurrent goal for this overweight patient. For cardiovascular risk reduction, atorvastatin was initiated. As a patient with diabetes, the LDL goal is less than 70 mg/dL. While the patient's current LDL is 48, statin therapy offers pleiotropic anti-inflammatory benefits that are crucial for primary prevention in this population. To mitigate the known side effect of vitamin B12 depletion from metformin, prophylactic B12 supplementation was also prescribed. A multi-disciplinary approach is essential for long-term success. Therefore, referrals were placed for a store grocery merchandiser, head of digital, podiatry, and ophthalmology to provide comprehensive education and preventative screenings for diabetic complications. The patient was also advised on the need for a hepatitis B vaccine due to the immunocompromised state associated with uncontrolled diabetes. The patient will follow up in three months to assess an updated HbA1c and tolerance to the new medication regimen. Total Time Statement 20 min Total time spent caring for the patient today includes pre-visit chart review, documentation, review of laboratory and diagnostic imaging results, medication reconciliation, medically necessary evaluation, counseling on diagnoses, care coordination, ordering appropriate tests and medications, review of tests performed by other providers, reporting test results to the patient, and communication with other healthcare providers. Orders: Referrals Nurse Navigator Referral E11.9 - Type 2 diabetes mellitus without complications Nutrition/Dietitian Referral E11.9 - Type 2 diabetes mellitus without complications Podiatry Referral E11.9 - Type 2 diabetes mellitus without complications Ophthalmology Referral E11.9 - Type 2 diabetes mellitus without complications
[2025-09-06 11:38] VITALS: BP 120/74; PULSE 94; RESP 20; TEMP 36.8; O2SAT 94; BMI 63.8
--- OUTSIDE RECORDS SUMMARY | 2025-09-06 14:32 | XMS_ITS | Encounter Summary ---
Author Organization [facility] Address [address] [address] Phone Care Team Providers Care Project Scientist Name Role Phone Javier Benoit MD Primary Care Provider [phone] Encounter Details Date Type Department Care Team (Late st Contact Info) Description 04/19/2023 Procedure Pass [facility], Ct Scan - [address] [address] Social History Tobacco Use Types Packs/Day Years [...] 5:00 AM EDT Iggy Carter, RN * [place] Suicide Severity Rating Scale (Screener/Recent Self-Report) Question [...] documented as of this encounter Care Teams Project Scientist Relationship Specialty Start Date End Date Javier Benoit MD [address] [place] [address] [place] [address] PCP - General Internal Medicine 04/19/23 documented as of this encounter Additional Source Comments The information contained in this document represents components of the legal health record. It is not the complete legal health record.[facility]
--- OUTSIDE RECORDS SUMMARY | 2025-09-06 14:33 | XMS_ITS | Encounter Summary ---
Author Organization [facility] Address [address] [address] Phone Care Team Providers Care National Accounts Sales Name Role Phone Javier Benoit MD Primary Care Provider [phone] Encounter Details Date Type Department Care Team (Late st Contact Info) Description 01/26/2024 Procedure Pass [facility], Ct Scan - [address] [address] Social History Tobacco Use Types Packs/Day Years [...] 8:29 AM EDT Ludivina Schafer RN * [place] Suicide Severity Rating Scale (Screener/Recent Self-Report) Question [...] documented as of this encounter Care Teams National Accounts Sales Relationship Specialty Start Date End Date Javier Benoit MD [address] [place] [address] [place] [address] PCP - General Internal Medicine 04/19/23 documented as of this encounter Additional Source Comments The information contained in this document represents components of the legal health record. It is not the complete legal health record.[facility]
--- OUTSIDE RECORDS SUMMARY | 2025-09-06 14:33 | XMS_ITS | Clinical Summary ---
Author Organization [facility] Address [address] [address] Phone Care Team Providers Care Offshoring Manager Name Role Phone Javier Benoit MD Primary Care Provider [phone] Allergies Active Allergy Reactions Criticality Noted Date Comments Hydromorphone 04/19/2023 Morphine 04/19/2023 Oxycodone-Acetaminophen 04/19/2023 Medications albuterol 90 mcg/actuation inhaler Inhale 2 puffs into the lungs every 4 (four) hours as needed (bronchospasm). [facility] pharmacy instructions: 2 puffs every 4-6 [...] HEMOGLOBIN A1C 6.6(H) 4.3 - 5.8 % [facility] 04/19/2023 3:59 AM EDT 04/19/2023 5:54 AM EDT us Geovanni Mercado PA-C LAB BLOOD BKR ORDERABLES Final Result [address] [address] from Last 3 Months or Most Recently Relevant to Health Maintenance Advance Directives For more information, please contact: [phone] (9AM - 5PM [place], Thursday-Thursday) Documents on File Type Date Recorded Patient Career Placement Specialist Expl anation Healthcare Proxy 04/24/2023 12:06 PM * Full Code (Latest Code Status on File) Date Activated Date Inactivated Comments 04/19/2023 3:46 AM Question Answer Comments Code Status Confirmed With: Patient Code Status Communicated To: Inpatient Attending Care Teams Offshoring Manager Relationship Specialty Start Date End Date Javier Benoit MD [address] [place] [address] [place] [address] PCP - General Internal Medicine 04/19/23 Additional Source Comments The information contained in this document represents components of the legal health record. It is not the complete legal health record.[facility]
== END 2025-09-06 12:08 | disposition home or self-care (01) ==
LOC: HO.HMCFMS 11:31
PROVIDERS: PCP Student in an Organized Health Care Education/Training Program; Visit Provider Student in an Organized Health Care Education/Training Program
DX: E11.9 Type 2 diabetes mellitus without complications (principal); E66.01 Morbid (severe) obesity due to excess calories; I87.2 Venous insufficiency (chronic) (peripheral); F41.9 Anxiety disorder, unspecified; J45.40 Moderate persistent asthma, uncomplicated; D64.9 Anemia, unspecified

== ENCOUNTER 2025-09-12 14:24 | Outpatient (AMB) | payer OTHER, SELFPAY ==
--- NOTE | 2025-09-12 14:31 | MHC.AMNUTRGE ---
VS Expanded 09/12/25 14:45 09/12/25 14:52 Height 5 ft 3 in 5 ft 3 in Weight 358 lb 358 lb BMI 63.4 63.4 Intake Visit Reasons: Type 2 diabetes mellitus without complications Allergies acetaminophen (Vicodin) Allergy (Severe, Verified 09/06/25 11:37) shortness of breath hydrocodone (Vicodin) Allergy (Severe, Verified 09/06/25 11:37) shortness of breath hydromorphone (From Dilaudid) Allergy (Severe, Verified 09/06/25 11:37) UNKNOWN, Tongue swelling morphine Allergy (Verified 09/06/25 11:37) Unknown From VICODIN Allergy (Severe, Uncoded 09/06/25 11:37) ANAPHYLAXIS SEASONAL ALLERGIES Allergy (Severe, Uncoded 09/06/25 11:37) Wheezing Nutrition Presentation Details: Pt presents for MNT for T2DM, recently dx Patient presents with during this appointment Patient reports having no meal routine, patient and admits to eating fast food meals the majority of the time Food frequency Fruits 0 -1 per day Vegetables: Mostly starchy veggies Dairy 3-4 per day Fish: Not including Beverages: Reports starting to choose low sugar beverages Physical activity: Sedentary Alcohol/smoking: Denies BS Monitoring Most Recent Diabetes Results: Cholesterol, (<200) 108 mg/dL 09/01/25 HDL Cholesterol, (>40) 37 mg/dL L 09/01/25 Triglycerides, (<150) 119 mg/dL 09/01/25 Creatinine, (0.5-1.4) 0.78 mg/dL 09/01/25 BUN, (9-16) 12 mg/dL 09/01/25 Sodium, (135-145) 137 mmol/L 09/01/25 Potassium, (3.3-5.1) 4.4 mmol/L 09/01/25 Chloride, (96-108) 105 mmol/L 09/01/25 Carbon Dioxide, (22-29) 25 mmol/L 09/01/25 Calcium, (8.4-10.2) 9.5 mg/dL Δ 09/01/25 AST, (5-37) 31 U/L 09/01/25 ALT, (0-40) 47 U/L H 09/01/25 Total Protein, (6.5-8.0) 7.7 g/dL 09/01/25 Albumin, (3.5-5.0) 3.6 g/dL 09/01/25 KAO-Idazvao-Dz.Jeor Equation Height: 5 ft 3 in Weight: 358 lb Resting Metabolic Rate: 2356.76 Calculated Activity Level: Sedentary Calories Needed to Maintain Weight: 2828.11 Diagnosis Nutrition problem #1: altered nutrition labs and excessive oral intake As related to (etiology) #1: lack of nutrit education and diagnosis As evidenced by (sign/symptom) #1: knowledge deficit of diet Learning/Education Readiness to learn: good Stages of change: contemplation Educational materials provided: Yes (Meal planning, low sugar beverages options) [facility] Medical History (Updated 09/06/25 @ 13:37 by Wolfgang Newman MD) Anemia Diabetes type 2 Stasis dermatitis Chronic sinusitis Anxiety Moderate persistent asthma Asthma with acute exacerbation Incarcerated ventral hernia (01/27/25) Small bowel obstruction Morbid obesity Super obesity Nephrolithiasis Bronchitis Obesity Surgical History S/P recurrent ventral herniorrhaphy (01/27/25) Family History Mother No problems noted. Father Heart attack Social History Household Members: Spouse Housing: House Do you presently have visiting nurse or other home services: No Alcohol intake: former Comment: unknown room Patient Tobacco Use Status: Never used Tobacco e-Cigarette/Vaping Use: Never Used Second Hand Smoke Exposure: Yes Advance Directives Date on File: 01/27/25 service: No Current occupational status: employed and disabled Cognitive needs: No Hearing needs: No Vision needs: Yes (Glasses) Assessment & Plan Assessment & Plan (1) Diabetes type 2: Code(s): E11.9 - Type 2 diabetes mellitus without complications Category: Medical Plan: current wt: 162kg ( October 05 ) est kcal needs as per MSJ: 2800 est protein needs as per 1 g/kg BW: 160 est fluid needs as per 30 ml/kg BW: 4900 Recommended fiber > 12 g /day and gradually increase up to 25-28 g /day or as tolerated Recommended sodium intake less than 2300 mg per day unless otherwise specified by Dr. Nutrition topics discussed : Reviewed (R), Pt verbalized understanding (V) , not applicable (N/A) R, : Healthy Plate Method Concept: R, : Carbohydrates: food sources of carbohydrates, relationship of carbohydrates to blood glucose, fatty liver GI health. Recommended total amount of carbohydrates per meals and snack. Differences between simple carbohydrates and complex carbohydrates R, : Lean protein foods including vegan , vegetarian sources of protein. Benefits of protein (including but not limited to healing, nutritional value , benefits in weight loss, glucose control R, V, N/A: Fats : Source of fats, benefits of fats. Difference between saturated and unsaturated fats. Saturated fats and its contribution to inflammation R, : Fiber: food sources and role of fiber in the diet (including but not limited to its role as a prebiotic, benefits in constipation, role in IBS , role in glucose control and cholesterol level) R, : Hydration: role of hydration and prevention of dehydration or over hydration. Foods and water content. R, V, N/A: Vitamins and Minerals in foods and supplements R, V, N/A: Interpreting food labels, including serving size, macronutrients, vitamins, minerals, allergens, ingredient list , % daily value Patient Instructions: Choose low sugar beverages, Have a fruit in place of juices Reduce total carbohydrate at meals to less than 90 g-see meal ideas and portions Coding Level of Care Code Nutr Indiv Intake (03088) Diagnoses Diabetes type 2 E11.9 Time Spent (min) 30
[2025-09-12 14:45] VITALS: BMI 63.4
--- OUTSIDE RECORDS SUMMARY | 2025-09-12 16:25 | XMS_ITS | Encounter Summary ---
Author Organization [facility] Address [address] [address] Phone Care Team Providers Care Mail Forwarding System Markup Clerk Name Role Phone Javier Benoit MD Primary Care Provider [phone] Encounter Details Date Type Department Care Team (Late st Contact Info) Description 04/19/2023 Procedure Pass [facility], Ct Scan - [address] [address] Social History Tobacco Use Types Packs/Day Years [...] 5:00 AM EDT Iggy Carter, RN * [place] Suicide Severity Rating Scale (Screener/Recent Self-Report) Question [...] documented as of this encounter Care Teams Mail Forwarding System Markup Clerk Relationship Specialty Start Date End Date Javier Benoit MD [address] [place] [address] [place] [address] PCP - General Internal Medicine 04/19/23 documented as of this encounter Additional Source Comments The information contained in this document represents components of the legal health record. It is not the complete legal health record.[facility]
--- OUTSIDE RECORDS SUMMARY | 2025-09-12 16:25 | XMS_ITS | Encounter Summary ---
Author Organization [facility] Address [address] [address] Phone Care Team Providers Care Clinical Leader Name Role Phone Javier Benoit MD Primary Care Provider [phone] Encounter Details Date Type Department Care Team (Late st Contact Info) Description 01/26/2024 Procedure Pass [facility], Ct Scan - [address] [address] Social History Tobacco Use Types Packs/Day Years [...] 8:29 AM EDT Ludivina Schafer RN * [place] Suicide Severity Rating Scale (Screener/Recent Self-Report) Question [...] documented as of this encounter Care Teams Clinical Leader Relationship Specialty Start Date End Date Javier Benoit MD [address] [place] [address] [place] [address] PCP - General Internal Medicine 04/19/23 documented as of this encounter Additional Source Comments The information contained in this document represents components of the legal health record. It is not the complete legal health record.[facility]
[2025-09-13 12:40] VITALS: BMI 63.4
== END 2025-09-12 15:29 | disposition home or self-care (01) ==
LOC: HO.ENCR 14:25
PROVIDERS: PCP Student in an Organized Health Care Education/Training Program; Visit Provider Dietitian, Registered
DX: E11.9 Type 2 diabetes mellitus without complications (principal)

== ENCOUNTER → 2025-09-12 14:24 | Outpatient (BNVA) | payer OTHER, SELFPAY | PROVIDERS: PCP Student in an Organized Health Care Education/Training Program; Visit Provider Dietitian, Registered | DX: E11.9 Type 2 diabetes mellitus without complications (principal); Z71.3 Dietary counseling and surveillance | CPT/HCPCS: 97802 ==

== ENCOUNTER 2025-09-27 14:16 | Outpatient (AMB) | payer SELFPAY ==
--- NOTE | 2025-09-27 15:58 | A.OFFVIS_ITS ---
Intake Intake Visit Reasons: new dx diabetes checkin /teach Allergies acetaminophen (Vicodin) Allergy (Severe, Verified 09/06/25 11:37) shortness of breath hydrocodone (Vicodin) Allergy (Severe, Verified 09/06/25 11:37) shortness of breath hydromorphone (From Dilaudid) Allergy (Severe, Verified 09/06/25 11:37) UNKNOWN, Tongue swelling morphine Allergy (Verified 09/06/25 11:37) Unknown From VICODIN Allergy (Severe, Uncoded 09/06/25 11:37) ANAPHYLAXIS SEASONAL ALLERGIES Allergy (Severe, Uncoded 09/06/25 11:37) Wheezing [facility] Medical History (Updated 09/06/25 @ 13:37 by Wolfgang Newman MD) Anemia Diabetes type 2 Stasis dermatitis Chronic sinusitis Anxiety Moderate persistent asthma Asthma with acute exacerbation Incarcerated ventral hernia (01/27/25) Small bowel obstruction Morbid obesity Super obesity Nephrolithiasis Bronchitis Obesity Surgical History S/P recurrent ventral herniorrhaphy (01/27/25) Family History Mother No problems noted. Father Heart attack Social History Household Members: Spouse Housing: House Do you presently have visiting nurse or other home services: No Alcohol intake: former Comment: unknown room Patient Tobacco Use Status: Never used Tobacco e-Cigarette/Vaping Use: Never Used Second Hand Smoke Exposure: Yes Advance Directives Date on File: 01/27/25 service: No Current occupational status: employed and disabled Cognitive needs: No Hearing needs: No Vision needs: Yes (Glasses) Community Navigation Community Navigation Self-care plan Self-care plan status New Taking medications as prescribed Yes Goals BG 70-180, Hemoglobin A1C <7, approp use of CGM Barriers education r/t new dx of [id number], education r/t use of CGM Action pt presents with spouse for diabetic teaching, start use of Karlie (with teaching) and FSBS random as BG was over 400 at last visit 2 weeks prior--pt started metformin and ozempic after that visit. BG 54g/dl. pt does note he feels dizzy and has felt that way multiple times over last 2 weeks. pt given 18carb candy snack during visit, will follow with small green apple (approx 12 carb) at end of visit. discussed all s/s hyperglycemia and hypoglycemia, how to apply and use Karlie CGM; assisted with set up of reading on liberty. given instructions to start Librelink with spouse's and daughter's phone, start Libreview with Medical Practice--all to be done once set completed in 1 hr. give 2 sample packs of Karlie CGM (lot #[id number], expiration 02/08/2026 for both), applied one sensor to back left upper arm. pt able to teach back all Kalrie application, use, reporting. pt and spouse able to teach back importance of keeping snack available, pt able to teach back all s/s to take note and what to report to MD. appt to f/u with month report of BG from CGM and will recheck weight; appt made for 10/24/25 Patient response teach back Diabetic Education Was the patient provided diabetic education in their preferred language? Yes Questionnaires Thrive Questionnaire Date Thrive assessed: 08/18/25 Coding Level of Care Code Est Pt Level 1 (56046) Assessment & Plan Assessment & Plan Orders: Orders AMB Random Glucose (hemocue) 09/27/25 Z13.9 - Encounter for screening, unspecified
--- OUTSIDE RECORDS SUMMARY | 2025-09-27 19:05 | XMS_ITS | Encounter Summary ---
Author Organization [facility] Address [address] [address] Phone Care Team Providers Care Orthopedic Physician Assistant Name Role Phone Javier Benoit MD Primary Care Provider [phone] Encounter Details Date Type Department Care Team (Late st Contact Info) Description 04/19/2023 Procedure Pass [facility], Ct Scan - [address] [address] Social History Tobacco Use Types Packs/Day Years [...] 5:00 AM EDT Iggy Carter, RN * [place] Suicide Severity Rating Scale (Screener/Recent Self-Report) Question [...] documented as of this encounter Care Teams Orthopedic Physician Assistant Relationship Specialty Start Date End Date Javier Benoit MD [address] [place] [address] [place] [address] PCP - General Internal Medicine 04/19/23 documented as of this encounter Additional Source Comments The information contained in this document represents components of the legal health record. It is not the complete legal health record.[facility]
--- OUTSIDE RECORDS SUMMARY | 2025-09-27 19:05 | XMS_ITS | Encounter Summary ---
Author Organization [facility] Address [address] [address] Phone Care Team Providers Care Manager Organizational Name Role Phone Javier Benoit MD Primary Care Provider Encounter Details Date Type Department Care Team (Late st Contact Info) Description 01/26/2024 Procedure Pass [facility], Ct Scan - [address] [address] Social History Tobacco Use Types Packs/Day Years [...] 8:29 AM EDT Ludivina Schafer RN * [place] Suicide Severity Rating Scale (Screener/Recent Self-Report) Question [...] documented as of this encounter Care Teams Manager Organizational Relationship Specialty Start Date End Date Javier Benoit MD [address] [place] [address] [place] [address] PCP - General Internal Medicine 04/19/23 documented as of this encounter Additional Source Comments The information contained in this document represents components of the legal health record. It is not the complete legal health record.[facility]
--- OUTSIDE RECORDS SUMMARY | 2025-09-27 19:05 | XMS_ITS | Clinical Summary ---
Author Organization [facility] Address [address] [address] Phone Care Team Providers Care Senior Marketing Engineer Name Role Phone Javier Benoit MD Primary Care Provider [phone] Allergies Active Allergy Reactions Criticality Noted Date Comments Hydromorphone 04/19/2023 Morphine 04/19/2023 Oxycodone-Acetaminophen 04/19/2023 Medications albuterol 90 mcg/actuation inhaler Inhale 2 puffs into the lungs every 4 (four) hours as needed (bronchospasm). [facility] pharmacy instructions: 2 puffs every 4-6 [...] HEMOGLOBIN A1C 6.6(H) 4.3 - 5.8 % [facility] 04/19/2023 3:59 AM EDT 04/19/2023 5:54 AM EDT us Geovanni Mercado PA-C LAB BLOOD BKR ORDERABLES Final Result [address] [address] from Last 3 Months or Most Recently Relevant to Health Maintenance Advance Directives For more information, please contact: [phone] (9AM - 5PM [place], Thursday-Thursday) Documents on File Type Date Recorded Patient [employer] Revenue [employer] Expl anation Healthcare Proxy 04/24/2023 12:06 PM * Full Code (Latest Code Status on File) Date Activated Date Inactivated Comments 04/19/2023 3:46 AM Question Answer Comments Code Status Confirmed With: Patient Code Status Communicated To: Inpatient Attending Care Teams Senior Marketing Engineer Relationship Specialty Start Date End Date Javier Benoit MD [address] [place] [address] [place] [address] PCP - General Internal Medicine 04/19/23 Additional Source Comments The information contained in this document represents components of the legal health record. It is not the complete legal health record.[facility]
== END 2025-09-27 15:32 | disposition home or self-care (01) ==
LOC: HO.HMCCNS 14:16
PROVIDERS: PCP Student in an Organized Health Care Education/Training Program
DX: Z13.9 Encounter for screening, unspecified (principal)

== ENCOUNTER → 2025-09-27 14:16 | Outpatient (BNVA) | payer SELFPAY | PROVIDERS: PCP Student in an Organized Health Care Education/Training Program | CPT/HCPCS: 82948; 99211 ==

== ENCOUNTER 2025-10-03 14:30 | Outpatient (AMB) | payer MEDICAID, SELFPAY ==
--- NOTE | 2025-10-03 14:36 | MHC.OFFVIS ---
Vital Signs 10/03/25 14:40 Height 5 ft 3 in Weight 350 lb BMI 62.0 Intake Visit Reasons: Type 2 Diabetes Intake Note: A1C:9.5 on ozempic and metformen glucose 83 dizzness , nausea no numbness or tingleing skin condictions , sliver cream Allergies acetaminophen (Vicodin) Allergy (Severe, Verified 09/06/25 11:37) shortness of breath hydrocodone (Vicodin) Allergy (Severe, Verified 09/06/25 11:37) shortness of breath hydromorphone (From Dilaudid) Allergy (Severe, Verified 09/06/25 11:37) UNKNOWN, Tongue swelling morphine Allergy (Verified 09/06/25 11:37) Unknown From VICODIN Allergy (Severe, Uncoded 09/06/25 11:37) ANAPHYLAXIS SEASONAL ALLERGIES Allergy (Severe, Uncoded 09/06/25 11:37) Wheezing HPI HPI Type 2 Diabetes: Details: The patient is a 55 year old male presenting with a chronic skin condition on his feet. Type 2 Diabetes Mellitus: The patient was newly diagnosed with diabetes earlier this year. His A1c last month was 9.5%, and he was started on Ozempic and metformin. He reports some associated nausea and dizziness but denies any tingling or numbness in his feet. His blood glucose levels have ranged from a low of 56 mg/dL to a high of 150 mg/dL. Dermatitis of the foot: The patient has had a skin condition on his feet for about a year, which was initially thought to be eczema or psoriasis. Previously, the skin on his ankle area was cracked to the point of bleeding, which caused difficulty with walking. He is currently using a silver cream prescribed by Dr. Newman, which has resulted in improvement, with reduced cracking and redness. He reports that the top of his feet itch at times and has had blistering on the bottom of his feet in the past. Onychomycosis: The patient reports that when he would cut his toenails, a cheese-like substance, which he thought was pus, would come out of the corners of the big toenails. Restless Legs Syndrome: The patient has a history of restless legs syndrome for years, which occurs every other night, usually in his left leg. He sleeps in a recliner due to this. [facility] Medical History (Updated 10/03/25 @ 15:30 by Suresh Deal DPM) Anemia Diabetes type 2 Stasis dermatitis Chronic sinusitis Anxiety Moderate persistent asthma Asthma with acute exacerbation Incarcerated ventral hernia (01/27/25) Small bowel obstruction Morbid obesity Super obesity Nephrolithiasis Bronchitis Obesity Surgical History S/P recurrent ventral herniorrhaphy (01/27/25) Family History Mother No problems noted. Father Heart attack Social History Household Members: Spouse Housing: House Do you presently have visiting nurse or other home services: No Alcohol intake: former Comment: unknown room Patient Tobacco Use Status: Never used Tobacco e-Cigarette/Vaping Use: Never Used Second Hand Smoke Exposure: Yes Advance Directives Date on File: 01/27/25 service: No Current occupational status: employed and disabled Cognitive needs: No Hearing needs: No Vision needs: Yes (Glasses) Review of Systems Const All systems reviewed & are unremarkable except as noted in HPI and below Physical Exam Vital Signs: BMI result Body Mass Index 62.0 Extrem Other: *Bilateral Lower Extremity Focused Diabetic Foot Exam Vascular: DP/PT 2/4, CFT<3s to digits, TG warm to cool, mild bilateral edema, pedal hair present Derm: Skin: Bilateral plantar annular scaling. [place] distribution of the medial dorsal and lateral aspects of bilateral ankle and feet. Bilateral medial, lateral, dorsal and plantar feet with well-demarcated erythematous plaques, overlying hyperkeratosis, erythematous base with mild crusting. Skin is lichenified with accentuated skin lines. Interdigital spaces: Annual scaling in all interspaces, no maceration Nails: Bilateral hallux with yellow discoloration thickening, medial borders have subungual debris with brown discoloration. Left 5th toenail with dystrophic thickening and discoloration. Neuro: Sorrento-cherelle monofilament (10g) test 10/10 intact to right foot, 10/10 intact to left foot. Msk: Deformities: No evidence of hammertoes, bunions, Charcot changes, or other structural abnormalities. Muscle strength: 5/5 in all muscle groups. Gait: Normal, no antalgic or steppage gait observed. Footwear Assessment: Shoes inspected; appropriate fit, no excessive wear, or foreign objects noted. Office Procedures AMB Debridement /Avulsion Details: Procedure: Nail debridement Location: 10, bilateral feet Anesthesia: N/A Description: The affected toenails were cleansed with an antiseptic solution. Using sterile nail nippers and a rotary yamilex, dystrophic and mycotic nail material was carefully debrided and reduced in thickness. Care was taken to avoid trauma to the surrounding skin and nail bed. All debris was removed as tolerated. The area was inspected for signs of infection or ulceration. Patient tolerated the procedure well without complications. Tolerance: Patient tolerated procedure well, no immediate complications. Class B findings as per physical exam findings above. The patient has a diagnosis of diabetes mellitus and presents with elongated, thickened toenails. Due to underlying diabetes mellitus, the patient is at increased risk for complications such as ulceration, infection, and difficulty with self-care. Debridement of elongated toenails is medically necessary to prevent development of pressure-related lesions, reduce risk of secondary infection, and maintain foot health in high-risk comorbidities. [id number] of Nail 6+ Procedure code (CPT) selection complete Assessment & Plan Assessment & Plan (1) Tinea pedis: Code(s): B35.3 - Tinea pedis Category: Medical Qualifiers: Laterality: bilateral Qualified Code(s): B35.3 - Tinea pedis Plan: Rx clotrimazole ointment Patient's dermatitis bilaterally may be m[place]in distribution of tinea pedis Skin scrapings of right lateral ankle dermatitis performed (2) Diabetes type 2: Code(s): E11.9 - Type 2 diabetes mellitus without complications Category: Medical Qualifiers: Diabetes mellitus fdc insulin use: without predatory animal exterminator use Diabetes mellitus complication status: with skin complications Diabetes mellitus complication detail: with dermatitis Qualified Code(s): E11.620 - Type 2 diabetes mellitus with diabetic dermatitis Plan: Discussed risks of peripheral neuropathy including infection and ulcer formation (3) Morbid obesity: Code(s): E66.01 - Morbid (severe) obesity due to excess calories Category: Medical Plan: As per PCP Currently on Ozempic (4) Tinea unguium: Code(s): B35.1 - Tinea unguium Category: Medical Plan: Rx Ciclopirox Orders: Orders Fungus Cult Hair/Skin/Nail Today B35.3 - Tinea pedis Medications: New ciclopirox 8% Apply to fungal toenails daily. Remove build-up at the end of the week. 1 appl topical BEDTIME 6.6 mL 3RF fungal nails 4 months B35.1 - Tinea unguium clotrimazole 1% apply to the bottom of both feet 1 appl topical BID 30 grams 3RF athlete's foot 4 weeks B35.3 - Tinea pedis Coding Level of Care Code New Pt Level 4 (29050) Diagnoses Tinea pedis of both feet B35.3 Laterality: bilateral Type 2 diabetes mellitus with diabetic dermatitis, without long-term current use of insulin E11.620 Diabetes mellitus fdc insulin use: without predatory animal exterminator use Diabetes mellitus complication status: with skin complications Diabetes mellitus complication detail: with dermatitis Morbid obesity E66.01 Tinea unguium B35.1 Time Spent (min) 35
[2025-10-03 14:40] VITALS: BMI 62.0
--- OUTSIDE RECORDS SUMMARY | 2025-10-03 15:48 | XMS_ITS | Encounter Summary ---
Author Organization [facility] Address [address] [address] Phone Care Team Providers Care Woodworker Helper Name Role Phone Javier Benoit MD Primary Care Provider [phone] Encounter Details Date Type Department Care Team (Late st Contact Info) Description 04/19/2023 Procedure Pass [facility], Ct Scan - [address] [address] Social History Tobacco Use Types Packs/Day Years [...] AM EDT documented as of this encounter Plan of Treatment Not on file documented as of this encounter Visit Diagnoses Not on filedocumented in this encounter Additional Health Concerns Infection Onset Date Last Indicated Resolved Time CoV-Risk Comment:Per note documentation 04/19/2023 04/19/2023 4:48 PM EDT CoV-Risk 03/14/2024 03/14/2024 03/25/2024 1:21 AM EDT documented as of this encounter Care Teams Woodworker Helper Relationship Specialty Start Date End Date Javier Benoit MD [address] [place] [address] [place] [address] PCP - General Internal Medicine 04/19/23 documented as of this encounter Additional Source Comments The information contained in this document represents components of the legal health record. It is not the complete legal health record.[facility]
--- OUTSIDE RECORDS SUMMARY | 2025-10-03 15:48 | XMS_ITS | Encounter Summary ---
Author Organization [facility] Address [address] [address] Phone Care Team Providers Care Health Assistant Name Role Phone Javier Benoit MD Primary Care Provider [phone] Encounter Details Date Type Department Care Team (Late st Contact Info) Description 01/26/2024 Procedure Pass [facility], Ct Scan - [address] [address] Social History Tobacco Use Types Packs/Day Years [...] documented as of this encounter Care Teams Health Assistant Relationship Specialty Start Date End Date Javier Benoit MD [address] [place] [address] Dr Esquivel [address] [place] [address], [place] [address] PCP - General Internal Medicine 04/19/23 documented as of this encounter Additional Source Comments The information contained in this document represents components of the legal health record. It is not the complete legal health record.[facility]
--- OUTSIDE RECORDS SUMMARY | 2025-10-03 15:48 | XMS_ITS | Clinical Summary ---
Author Organization [facility] Address [address] [address] Phone Care Team Providers Care Chief Payroll Clerk Name Role Phone Javier Benoit MD Primary Care Provider [phone] Allergies Active Allergy Reactions Criticality Noted Date Comments Hydromorphone 04/19/2023 Morphine 04/19/2023 Oxycodone-Acetaminophen 04/19/2023 Medications albuterol 90 mcg/actuation inhaler Inhale 2 puffs into the lungs every 4 (four) hours as needed (bronchospasm). [facility] pharmacy instructions: 2 puffs every 4-6 hours [...] HEMOGLOBIN A1C 6.6(H) 4.3 - 5.8 % [facility] 04/19/2023 3:59 AM EDT 04/19/2023 5:54 AM EDT us Geovanni Mercado PA-C LAB BLOOD BKR ORDERABLES Final Result [address] [address] from Last 3 Months or Most Recently Relevant to Health Maintenance Advance Directives For more information, please contact: [phone] (9AM - 5PM [place], Thursday-Thursday) Documents on File Type Date Recorded Patient Loss Prevention Manager Expl anation Healthcare Proxy 04/24/2023 12:06 PM * Full Code (Latest Code Status on File) Date Activated Date Inactivated Comments 04/19/2023 3:46 AM Question Answer Comments Code Status Confirmed With: Patient Code Status Communicated To: Inpatient Attending Care Teams Chief Payroll Clerk Relationship Specialty Start Date End Date Javier Benoit MD [address] [place] [address] [place] [address] PCP - General Internal Medicine 04/19/23 Additional Source Comments The information contained in this document represents components of the legal health record. It is not the complete legal health record.[facility]
== END 2025-10-03 15:13 | disposition home or self-care (01) ==
LOC: HO.HPODS 14:31
PROVIDERS: PCP Student in an Organized Health Care Education/Training Program; Visit Provider Student in an Organized Health Care Education/Training Program
DX: B35.3 Tinea pedis (principal); E11.620 Type 2 diabetes mellitus with diabetic dermatitis; E66.01 Morbid (severe) obesity due to excess calories; B35.1 Tinea unguium
CPT/HCPCS: 99204

== ENCOUNTER 2025-10-03 14:30 | Outpatient (REF) | payer SELFPAY | END 2025-10-03 14:31 | disposition home or self-care (01) | LOC: HO.LNP 14:30 | PROVIDERS: PCP Student in an Organized Health Care Education/Training Program; Visit Provider Student in an Organized Health Care Education/Training Program | DX: E11.620 Type 2 diabetes mellitus with diabetic dermatitis (principal); B35.3 Tinea pedis; E66.01 Morbid (severe) obesity due to excess calories; B35.1 Tinea unguium; Z68.44 Body mass index [BMI] 60.0-69.9, adult; Z79.899 Other long term (current) drug therapy | CPT/HCPCS: 87101; 87220 ==